=== PATIENT | female | born 1960 | race Caucasian/White ===

== ENCOUNTER 2019-10-10 09:41 | Outpatient (CLI) | payer SELFPAY ==
--- NOTE | 2019-10-10 09:57 | CT_ITS ---
WS: [id number] CT LUMBAR SPINE, noncontrast. HISTORY: LUMBAR BURST FRACTURE TECHNIQUE: Contiguous 2.5 mm axial imaging are performed. Sagittal and coronal reformats are submitte d and reviewed. All CT scans at [facility] use at least one of these dose optimization te chniques: automated exposure control; mA and/or kV adjustment per patient size (includes targeted exa ms where dose is matched to clinical indication); or iterative reconstruction. IV contrast: None DLP: 1651.35 mGycm COMPARISON: 08/14/2019 and 07/14/2019, 05/05/2019 L1 burst fracture is stable since 08/14/2019. Fracture extends through the superior vertebral body in volving both the anterior and posterior columns. Estimated at 30%. Retropulsion of the posterior supe rior endplate by 3.6 mm. No progression since the prior study. Degenerative air in the disc of T12-L1 . Mild buckling of the posterior L1 column. New sclerosis along the superior endplate of L4 without retropulsion. Concavity of the superior endpl ate of L4. L1-2: Normal. L2-3: Normal. L3-4: Mild annular disc bulging and ligamentum flavum hypertrophy. L4-5: Mild annular disc bulging with no stenosis. L5-S1: Mild annular disc bulging. Posterior disc bulging contacts the S1 nerve roots with no displace ment. Scattered calcifications within the aorta and common iliac arteries. CT/CT lumbar spine wo con* [id number] IMPRESSION: 1. Stable L1 burst fracture with no progression since 08/14/2019. Estimated at 30%. 2. New compression fracture superior endplate of L4. Compression fracture appro ximately 10 mm.
== END 2019-10-10 09:42 | disposition home or self-care (01) ==
LOC: RADWPI 09:42
PROVIDERS: Family Provider Nurse Practitioner Family; PCP Nurse Practitioner Family; Visit Provider Licensed Practical Nurse
DX: S32.011A Stable burst fracture of first lumbar vertebra, initial encounter for closed fracture (principal); S32.041A Stable burst fracture of fourth lumbar vertebra, initial encounter for closed fracture; X58.XXXA Exposure to other specified factors, initial encounter
CPT/HCPCS: 72131

== ENCOUNTER 2019-11-10 12:51 | Outpatient (CLI) | payer SELFPAY ==
--- NOTE | 2019-11-10 13:00 | CT_ITS ---
WS: [id number] CT LUMBAR SPINE TECHNIQUE: Noncontrast CT of the lumbar spine with coronal and sagittal reformatted images. CLINICAL INFORMATION: L4 fracture 09/13/2019 COMPARISON: October 10, 2019 DLP: 1754.[address] scans at [facility] use at least one of these dose optimization techniques: automat ed exposure control; mA and/or kV adjustment per patient size (includes targeted exams where dose is matched to clinical indication); or iterative reconstruction. FINDINGS: Mild compression fracture superior endplate L1 with loss of approximately 30% vertebral body height i s unchanged since the prior examination. Minimal retropulsion of the posterior superior cortex with s light effacement of the ventral thecal sac. No high-grade central canal stenosis. Mild compression superior endplate L4 is unchanged in appearance. L1-L2: Normal. L2-L3: Normal. L3-L4: Mild annular bulging with slight effacement of ventral thecal sac. Mild narrowing of the subar ticular recess bilaterally. Mild facet arthropathy. Spinal canal is patent. L4-L5: Mild annular bulging with mild facet arthropathy. Spinal canal and foramen are patent. Minimal narrowing of the left subarticular recess. L5-S1: Mild annular bulging with slight effacement of the ventral thecal sac. Spinal canal foramen ar e patent. Mild facet arthropathy. Visualized pelvic bony structures: Normal. Paravertebral soft tissues: Normal. CT/CT lumbar spine wo con* [id number] IMPRESSION: 1. L1 superior endplate compression fracture with loss of approximately 60% ve rtebral body height is unchanged. Mild retropulsion of the posterior superior c ortex with slight effacement of the ventral thecal sac. 2. Stable compression superior endplate L4. 3. No significant central canal stenosis. 4. No significant changes since October 10, 2019
--- NOTE | 2019-11-10 14:15 | XR_ITS ---
WS: [id number] SCREENING DEXA SCAN Nitronex CLINICAL INFORMATION: osteoporisis COMPARISON: None. FINDINGS: The L1-L4 bone mineral density measures 0.718 g/cm2. This corresponds to a T score score of -3.9 and Z score of -2.5. Left femoral neck bone mineral density measures 0.730 g/cm2. This corresponds to a T score of -2.2 an d Z score of -1.2. Right femoral neck bone mineral density measures 0.702 g/cm2. This corresponds to a T score -2.4of an d Z score of -1.4. Mean femoral neck bone mineral density measures 0.716 g/cm2. This corresponds to a T score of -2.3 an d Z score of -1.3. XR/XR DEXA axial skeleton* [id number] IMPRESSION: Osteoporosis Patient's FRAX calculated 10 year probability for major osteoporotic fracture i s 21.0 % and osteoporotic hip fracture is 5.5%.
== END 2019-11-10 12:52 | disposition home or self-care (01) ==
LOC: RADWPI 12:56
PROVIDERS: Family Provider Nurse Practitioner Family; PCP Nurse Practitioner Family; Visit Provider Licensed Practical Nurse
DX: M81.0 Age-related osteoporosis without current pathological fracture (principal); S32.000A Wedge compression fracture of unspecified lumbar vertebra, initial encounter for closed fracture; X58.XXXA Exposure to other specified factors, initial encounter
CPT/HCPCS: 72131; 77080

== ENCOUNTER → 2019-11-14 09:13 | Outpatient (BNVA) | payer SELFPAY | PROVIDERS: Family Provider Nurse Practitioner Family; PCP Nurse Practitioner Family; Visit Provider Surgery | DX: L98.9 Disorder of the skin and subcutaneous tissue, unspecified (principal) | CPT/HCPCS: 88305 ==

== ENCOUNTER → 2019-11-25 11:49 | Outpatient (BNVA) | payer SELFPAY | PROVIDERS: Family Provider Nurse Practitioner Family; PCP Nurse Practitioner Family; Visit Provider Nurse Practitioner Family | DX: M81.0 Age-related osteoporosis without current pathological fracture (principal); Z12.11 Encounter for screening for malignant neoplasm of colon; Z12.31 Encounter for screening mammogram for malignant neoplasm of breast; R10.84 Generalized abdominal pain; E55.9 Vitamin D deficiency, unspecified | CPT/HCPCS: 80053; 82306; 83735; 84100; 85025 ==

== ENCOUNTER 2019-12-15 08:18 | Outpatient (CLI) | payer SELFPAY ==
--- NOTE | 2019-12-15 09:00 | CT_ITS ---
WS: [id number] CT LUMBAR SPINE TECHNIQUE: Noncontrast CT of the lumbar spine with coronal and sagittal reformatted images. CLINICAL INFORMATION: Lumbar fracture COMPARISON: CT November 10, 2019 DLP: 1611.[address] scans at [facility] use at least one of these dose optimization techniques: automat ed exposure control; mA and/or kV adjustment per patient size (includes targeted exams where dose is matched to clinical indication); or iterative reconstruction. FINDINGS: Again seen is the mild compression fracture superior endplate L1 with loss of approximately 30% vertebral body heights. Minimal retropulsion posterior superior cortex with slight effacement of ventral thecal sac. No high-grade central canal stenosis. Mild compression superior endplate L4 is u nchanged. L1-L2: Normal. L2-L3: Normal. L3-L4: Mild annular bulging with slight effacement of ventral thecal sac. Mild narrowing of the subar ticular recess bilaterally. Mild facet arthropathy. Spinal canal is patent. L4-L5: Mild annular bulging with mild facet arthropathy. Spinal canal and foramen are patent. Minimal narrowing of the left subarticular recess L5-S1: Mild annular bulging with slight effacement of the ventral thecal sac. Spinal canal foramen ar e patent. Mild facet arthropathy. CT/CT lumbar spine wo con* [id number] IMPRESSION: 1. L1 superior endplate compression fracture with loss of approximately 30% belen tebral body height is unchanged. Mild retropulsion of the posterior superior co rtex with slight effacement of the ventral thecal sac. 2. Stable compression superior endplate L4. 3. No significant central canal stenosis.
== END 2019-12-15 08:19 | disposition home or self-care (01) ==
LOC: CT 08:19
PROVIDERS: Family Provider Nurse Practitioner Family; PCP Nurse Practitioner Family; Visit Provider Licensed Practical Nurse
DX: S32.000A Wedge compression fracture of unspecified lumbar vertebra, initial encounter for closed fracture (principal); X58.XXXA Exposure to other specified factors, initial encounter
CPT/HCPCS: 72131

== ENCOUNTER 2020-10-01 12:45 | Outpatient (CLI) | payer SELFPAY ==
--- NOTE | 2020-10-01 12:00 | US_ITS ---
WS: [id number] Complete ABDOMINAL ULTRASOUND HISTORY: R10.9 - Unspecified abdominal pain COMPARISON: 01/19/2017 Liver: 15.4 cm in length. Liver is normal size and echogenicity with no mass or intrahepatic dilatati on. Gallbladder: Prior cholecystectomy. Pancreas: Normal size and echogenicity. CBD: 0.6 cm. Right kidney: 9.0 cm x 4.1 cm x 4.1 cm. Simple cortical cyst with a maximum diameter 1.1 cm superior pole RIGHT kidney. Left kidney: 10.8 cm x 5.7 cm x 5.2 cm. Cortical cyst lower pole LEFT kidney with a maximum diameter 1.0 cm. Spleen: Normal size and echogenicity. Abdominal aorta and IVC are within normal limits. No ascites. US/US abdomen complete* [id number] IMPRESSION: 1. Prior cholecystectomy. 2. Very small bilateral simple renal cysts. 3. No bile duct dilatation.
== END 2020-10-01 12:46 | disposition home or self-care (01) ==
LOC: RAD 12:46
PROVIDERS: PCP Nurse Practitioner Family; Visit Provider Nurse Practitioner Family
DX: R10.9 Unspecified abdominal pain (principal); Z90.49 Acquired absence of other specified parts of digestive tract; N28.1 Cyst of kidney, acquired
CPT/HCPCS: 74018; 76700; 80053; 81003; 82150; 83690; 85025

== ENCOUNTER → 2022-08-02 10:06 | Outpatient (BNVA) | payer SELFPAY | PROVIDERS: PCP Nurse Practitioner; Visit Provider Nurse Practitioner | DX: L65.9 Nonscarring hair loss, unspecified (principal) | CPT/HCPCS: 80053; 82306; 84443 ==

== ENCOUNTER → 2023-05-10 14:58 | Outpatient (BNVA) | payer MEDICAID, SELFPAY | PROVIDERS: PCP Nurse Practitioner; Visit Provider Nurse Practitioner | DX: R63.4 Abnormal weight loss (principal); R19.7 Diarrhea, unspecified; R10.9 Unspecified abdominal pain | CPT/HCPCS: 80053; 84443; 85025 ==

== ENCOUNTER 2023-05-11 17:14 | Emergency (ER) | payer MEDICAID, SELFPAY ==
[2023-05-11] VITALS (9 sets, daily range): BP systolic 112–155; BP diastolic 60–84; PULSE 70–83; RESP 16–17; TEMP 36.6–36.9; O2SAT 97–100; BMI 20.7
--- NOTE | 2023-05-11 18:38 | W.ED.RECABL ---
HPI - Recheck/Abnormal Lab/Rx General: Chief Complaint: Abdominal Pain Stated Complaint: abnormal labs Time Seen by Provider: 05/11/23 17:54 History of Present Illness: Seen in the [place] clinic for chronic nausea vomiting diarrhea abdominal pain intermittently for the last 6 months. She had labs drawn yesterday. She was called today that said her hemoglobin was dangerously low and it was in the sixes. That they told her to get to the ER for further work-up and probable transfusion. Patient did have an abdominal pain spasm type off-and-on with no known triggers or anything and will relieve it for the last 6 months. Patient is also had a lot of nausea and vomiting during these episodes. Patient has a history of being anemic a long long time ago but not anything here recent. Patient does not have any active signs of blood loss. Review of Systems General: Reports: 10 or more systems reviewed and unremarkable except in HPI and below PFSH ED PFSH: Medical History Diverticulitis Fluid level behind tympanic membrane of both ears GERD (gastroesophageal reflux disease) Lumbar burst fracture Otitis externa Post-menopausal osteoporosis Patient has had two fractures of the lumbar spine in the past year. Vitamin D deficiency Surgical History H/O section H/O local excision of skin lesion Left thigh: Pathology showed squamous of carcinoma History of cholecystectomy History of umbilical hernia repair Family History Mother Cancer Social History Smoking and tobacco status: never smoked Alcohol intake: never Substance/Drug Use: never Household members: spouse Marital status: Current occupational status: unemployed Physical Exam HENMT: COMMON NORMALS: normocephalic, atraumatic, hearing grossly normal bilaterally, Normal external nose present and moist oral mucous membranes HEAD & SCALP: normocephalic and atraumatic NOSE: Normal external nose present Eye: COMMON NORMALS: EOMs intact bilaterally, conjunctivae normal and no scleral icterus CONJUNCTIVA: Yes conjunctivae normal Neck/C-Spine: COMMON NORMALS: full ROM, no lymphadenopathy, supple, no meningeal signs, no JVD and Thyroid normal THYROID: Thyroid normal Chest: COMMONS NORMALS: normal inspection of the chest and normal palpation of entire chest wall Resp: COMMON NORMALS: normal respiratory effort, No retractions, No use of accessory muscles and clear to auscultation bilaterally AUSCULTATION: clear to auscultation bilaterally Cardio: COMMON NORMALS: no JVD, regular rate, regular rhythm, S1 normal heart sound present, S2 normal heart sound present, No gallops present (Cardio), No clicks present (Cardio), No murmurs present (Cardio) and No rub (Cardio) RATE: regular rate RHYTHM: regular rhythm HEART SOUNDS: S1 normal heart sound present and S2 normal heart sound present GI: COMMON NORMALS: Normal to inspection, nondistended, normoactive bowel sounds present, Soft to palpation, No hepatosplenomegaly present and no masses; negative for non-tender (Diffusely mildly tender) PALPATION: Yes Soft to palpation and Yes No hepatosplenomegaly present : COMMON NORMALS: Yes no CVA tenderness BLADDER/KIDNEY EXAM: Yes no CVA tenderness Back/Pelvis: COMMON NORMALS: no CVA tenderness Neuro: MENINGEAL SIGNS: Yes no meningeal signs Course Vital Signs: Vital signs: Vital Signs Temperature 97.9 F 05/11/23 17:31 Pulse Rate 71 05/11/23 17:48 Respiratory Rate 17 05/11/23 17:48 Blood Pressure 112/81 05/11/23 17:48 Pulse Oximetry 98 05/11/23 17:48 Oxygen Delivery Me thod Room Air 05/11/23 17:48 MDM - Recheck/Abnormal Lab/Rx Medical Decision Making Patient presented to the ER from a call from the clinic saying she was very low on blood. Needed to come in for evaluation and transfusion. Physical exam was performed lab work was obtained which revealed hemoglobin of 6.8 hematocrit 25.8. Platelet count of 869,000 the rest of her lab work was benign. Patient was infused 1 unit of packed red cells. Anticipate patient to be discharged home to follow-up with family practice physician for further evaluation and testing of her anemia. Differential Diagnosis Unlikely encounter for medication refill, encounter for wound recheck, encounter for recheck of burn, encounter for removal of sutures or warfarin-induced coagulopathy Medical Records I reviewed the patient's medical records. Lab Data I reviewed the patient's lab results. 05/11/23 18:25 05/11/23 18:25 Laboratory Results WBC 11.5 10^3/uL (4.0-10.0) H 05/11/23 18:25 RBC 4.31 10^6/uL (4.1-5.3) 05/11/23 18:25 Hgb 6.8 g/dL (11.5-15.3) L 05/11/23 18:25 Hct 25.8 % (37.0-47.0) L 05/11/23 18:25 MCV 59.9 fl (81-99) L 05/11/23 18:25 MCH 15.8 pg (28.0-34.0) L 05/11/23 18:25 MCHC 26.4 g/dL (30.0-36.0) L 05/11/23 18:25 RDW 20.6 % (12.1-15.1) H 05/11/23 18:25 Plt Count 869 10^3/cmm (130-400) H 05/11/23 18:25 MPV 8.9 fL (7.4-10.4) 05/11/23 18:25 Neut % (Auto) 67.3 % 05/11/23 18:25 Lymph % (Auto) 22.1 % 05/11/23 18:25 [place] % (Auto) 6.6 % 05/11/23 18:25 Eos % (Auto) 2.9 % 05/11/23 18:25 Baso % (Auto) 0.9 % 05/11/23 18:25 Neut # (Auto) 7.72 10^3/uL (1.8-7.7) H 05/11/23 18:25 Lymph # (Auto) 2.5 10^3/uL (0.8-4.8) 05/11/23 18:25 [place] # (Auto) 0.8 10^3/uL (0.2-0.9) 05/11/23 18:25 Eos # (Auto) 0.3 10^3/uL (0.0-0.8) 05/11/23 18:25 Baso # (Auto) 0.1 10^3/uL (0.0-0.1) 05/11/23 18:25 Nucleated RBC % (auto) 0 % 05/11/23 18:25 Nucleated RBCs # 0.0 /100WBC 05/11/23 18:25 PT 14.30 SECONDS (12.1-14.9) 05/11/23 18:25 INR 1.08 (0.8-1.2) 05/11/23 18:25 Sodium 137 mmol/L (136-145) 05/11/23 18:25 Potassium 3.7 mmol/L (3.5-5.1) 05/11/23 18:25 Chloride 98 mmol/L (98-107) 05/11/23 18:25 Carbon Dioxide 28 mmol/L (22-29) 05/11/23 18:25 Anion Gap 14.7 (5-19) 05/11/23 18:25 BUN 15 mg/dL (8-23) 05/11/23 18:25 Creatinine 0.8 mg/dL (0.5-0.9) 05/11/23 18:25 GFR Calculation 72.4 mL/min (90-130) L 05/11/23 18:25 Glucose 80 mg/dL (65-115) 05/11/23 18:25 Calculated Osmolality 284 mOsm/kg (285-295) L 05/11/23 18:25 Calcium 9.4 mg/dL (8.5-10.5) 05/11/23 18:25 Magnesium 2.2 mg/dL (1.7-2.3) 05/11/23 18:25 Total Bilirubin 0.2 mg/dL (0.15-1.2) 05/11/23 18:25 AST 12 U/L (0-32) 05/11/23 18:25 ALT 6 U/L (0-33) 05/11/23 18:25 Alkaline Phosphatase 114 U/L (35-105) H 05/11/23 18:25 Total Protein 7.4 g/dL (6.6-8.7) 05/11/23 18:25 Albumin 4.1 g/dL (3.5-5.2) 05/11/23 18:25 Globulin 3.3 g/dL (1.3-4.6) 05/11/23 18:25 Lipase 37 U/L (13-60) 05/11/23 18:25 Blood Type O Positive 05/11/23 18:25 Rho(D) Type Positive 05/11/23 18:25 Antibody Screen Negative 05/11/23 18:25 Discharge Plan Discharge Patient Disposition: Home Clinical Impression: Anemia requiring transfusions, Thrombocytosis, Abdominal pain, chronic, generalized Condition: Stable Prescriptions: No Action omeprazole 40 mg capsule,delayed release(DR/EC) 40 mg PO BID Qty: 30 0RF ondansetron 4 mg tablet,disintegrating 4 mg PO Q8H PRN (Reason: nausea and vomiting) Qty: 30 0RF Discharge Orders: Discharge ED (Routine); Ordered 05/11/23 Ordered By: Dewey Fountain Referrals: Leah Campos FNP [Primary Care Provider] - 1 week Patient Instructions: Abdominal Pain (ED), Anemia (ED), Blood Transfusion (DC) Activity Restrictions/Additional Instructions: Please follow-up with your family practice physician within the next 1 week or sooner. You may benefit from further evaluation testing of your anemia and elevated platelet count. Coding Level of Care Code ED Orthopedic Nurse for Bridget Estrada
[2023-05-11 18:40] LABS: Basophils # 0.1 10^3/uL (0.0-0.1); Basophils % 0.9 %; Eosinophils # 0.3 10^3/uL (0.0-0.8); Eosinophils % 2.9 %; Hematocrit 25.8 % (37.0-47.0); Hemoglobin 6.8 g/dL (11.5-15.3); Lymphocytes # 2.5 10^3/uL (0.8-4.8); Lymphocytes % 22.1 %; Mean Corpuscular HGB Conc 26.4 g/dL (30.0-36.0); Mean Corpuscular Hemoglobin 15.8 pg (28.0-34.0); Mean Corpuscular Volume 59.9 fl (81-99); Mean Platelet Volume 8.9 fL (7.4-10.4); Monocytes # 0.8 10^3/uL (0.2-0.9); Monocytes % 6.6 %; Neutrophils # 7.72 10^3/uL (1.8-7.7); Neutrophils % 67.3 %; Nucleated Red Blood Cells % 0 %; Platelet Count 869 10^3/cmm (130-400); Red Blood Count 4.31 10^6/uL (4.1-5.3); Red Cell Distribution Width 20.6 % (12.1-15.1); White Blood Count 11.5 10^3/uL (4.0-10.0)
[2023-05-11 18:54] LABS: INR 1.08 (0.8-1.2)
[2023-05-11 19:00] LABS: Alanine Aminotransferase 6 U/L (0-33); Albumin Level 4.1 g/dL (3.5-5.2); Alkaline Phosphatase 114 U/L (35-105); Anion Gap 14.7 (5-19); Aspartate Amino Transferase 12 U/L (0-32); Blood Urea Nitrogen 15 mg/dL (8-23); Calcium 9.4 mg/dL (8.5-10.5); Carbon Dioxide 28 mmol/L (22-29); Chloride 98 mmol/L (98-107); Globulin 3.3 g/dL (1.3-4.6); Glomerular Filtration Rate 72.4 mL/min (90-130); Glucose 80 mg/dL (65-115); Lipase 37 U/L (13-60); Magnesium 2.2 mg/dL (1.7-2.3); Osmolality Calculated 284 mOsm/kg (285-295); Potassium 3.7 mmol/L (3.5-5.1); Sodium 137 mmol/L (136-145); Total Bilirubin 0.2 mg/dL (0.15-1.2); Total Protein 7.4 g/dL (6.6-8.7)
--- NOTE | 2023-05-11 21:27 | PC.NURSE ---
ASSUMED CARE OF PATIENT AT 2124 FROM [facility] DUNC[facility].
== END 2023-05-11 23:08 | disposition home or self-care (01) ==
PROVIDERS: Emergency Provider Emergency Medicine; PCP Nurse Practitioner
DX: G89.29 Other chronic pain (principal); R10.84 Generalized abdominal pain; D75.839 Thrombocytosis, unspecified; D64.9 Anemia, unspecified
CPT/HCPCS: 36430; 80053; 83690; 83735; 85025; 85610; 86850; 86900; 86920; 99284; P9016

== ENCOUNTER → 2023-05-14 15:33 | Outpatient (BNVA) | payer MEDICAID, SELFPAY | PROVIDERS: PCP Nurse Practitioner; Visit Provider Nurse Practitioner | DX: R19.7 Diarrhea, unspecified (principal) | CPT/HCPCS: 87177; 87209; 87506 ==

== ENCOUNTER → 2023-05-24 10:35 | Outpatient (BNVA) | payer MEDICAID, SELFPAY | PROVIDERS: PCP Nurse Practitioner; Visit Provider Nurse Practitioner | DX: R10.9 Unspecified abdominal pain (principal); D58.2 Other hemoglobinopathies; R11.2 Nausea with vomiting, unspecified; R63.4 Abnormal weight loss | CPT/HCPCS: 85025 ==

== ENCOUNTER 2023-05-25 10:52 | Inpatient (IN) | payer MEDICAID, SELFPAY ==
[2023-05-25] VITALS (8 sets, daily range): BP systolic 125–156; BP diastolic 68–95; PULSE 75–91; RESP 16–17; TEMP 36.4–36.8; O2SAT 94–97; BMI 19.4
--- NOTE | 2023-05-25 11:48 | CT_ITS ---
WS: [id number] CT ABDOMEN AND PELVIS WITH CONTRAST HISTORY: abd pain TECHNIQUE: Imaging performed of the abdomen and pelvis with IV contrast. Single phase imaging of the abdomen. Coronal and sagittal reformats are submitted. All CT scans at [facility] use at [address] one of these dose optimization techniques: automated exposure control; mA and/or kV adjustment per patient size (includes targeted exams where dose is matched to clinical indication); or iterative re construction. IV CONTRAST: Omnipaque 350; 100 mL IV. Oral contrast: No DLP: 338.79 mGy.cm COMPARISON: None available. Lower thorax: Chronic emphysematous changes at the lung bases. Bilateral pulmonary nodules are identi fied. Numerous pulmonary nodules consistent with metastatic disease most likely. The largest nodule v isualized is 1.8 cm. On the tester printed circuit boards localizer there is a 2.3 mm pulmonary nodule in the LEFT lower lung field. This may be within the lingula. Nevertheless there are numerous bilateral nodules but greates t on the LEFT. Heart size is normal. No pericardial effusion. Small hiatal hernia. Liver/biliary system: Abnormal liver. Large low-attenuation enhancing mass in the superior RIGHT lobe of the liver abutting the diaphragm. Mass is displacing the adjacent RIGHT hepatic vein. Mass measur es 7.6 x 8.3 x 6.6 cm. Portal vein is patent. There are few additional scattered hypodensities which are probably cysts. Focal hepatic sparing adjacent to the falciform ligament. Gallbladder: Status post cholecystectomy. Pancreas: Normal size pancreas and pancreatic duct. No adjacent inflammation. Spleen: Normal size spleen. No mass or infarct. Adrenal glands: Very slight nodularity RIGHT adrenal gland. Nodule measures 1.2 cm. Negative LEFT adr enal gland. Right kidney: Numerous too small to characterize hypodensities. No solid mass or obstruction. Left kidney: Too small to characterize hypodensities. No solid mass or obstruction. Aorta: Atherosclerosis aorta. Lymphadenopathy: There are several small mesenteric lymph nodes adjacent to a stricture in the hepati c flexure of the colon. There is a mesenteric implant measuring 2.4 x 3.4 cm just anterior to the SMV and adjacent to the pancreatic head which may be extension of a colon neoplasm or mesenteric implant . There are several additional smaller lymph nodes in the mesentery. Free fluid: Small amount of free fluid in the pelvis. GI tract: Stomach is normally distended. There is significant fluid dilatation of small bowel loops w ith small bowel and measure up to 3.4 cm. A sending colon is markedly dilated. The appendix is fluid- filled. There is a high-grade stricture, apple core lesion near the hepatic flexure with adjacent mes enteric implant and nodes. No free air. Distal colonic diverticular disease. Abdominal wall: Unremarkable abdominal wall. No hernia. Pelvis: Small amount of free fluid in the pelvis. Bones: Mild anterior wedging of L1 and L4. These changes have been described on a prior lumbar spine CT. No destructive bone lesions identified. IMPRESSION: 1. 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 2. Multiple metastatic pulmonary nodules at the lung bases and a large mass in the liver is probably hepatic metastasis. As this is only a single lesion cannot completely exclude this is not a primary site but thought most likely to be a metastatic liver lesion. 3. Mesenteric implant and small RIGHT upper quadrant lymph nodes. The mesenteric implant is insepara ble from the pancreatic head and just anterior to the SMV measuring 2.4 x 3.4 cm. This mesenteric imp lant is very closely associated with the neoplastic stricture in the hepatic flexure. 4. Small amount of free fluid. 5. Indeterminate RIGHT adrenal nodule at 1.2 cm. May be an early metastatic lesion. 6. Prior cholecystectomy. Notified Michael Vázquez DO at 05/25/2023 12:40 PM.
--- NOTE | 2023-05-25 11:49 | XR_ITS ---
WS: [id number] Exam: XR chest 1V portable [id number] Date/Time of Exam: 05/25/2023 11:49 AM Reason For Exam: dyspnea/cough No previous exams. There are numerous scattered soft tissue nodules in both lungs. The largest nodule s and masses are seen in the LEFT lower lung zone. This is suspicious for pulmonary metastatic diseas e. Questionable RIGHT hilar mass. Heart size is normal. The mediastinum is normal in contour. The cynthia gs are hyperinflated. No pneumothorax. No pleural effusions. Bony structures are intact. IMPRESSION: 1. Numerous scattered soft tissue nodules in both lungs. The largest lesion is in the LEFT lower lobe and measures 3.6 cm in greatest diameter. This may represent metastatic pulmonary disease. 2. The lungs are hyperinflated and otherwise clear. 3. There may be a RIGHT hilar mass. Recommendations: Contrast CT of the chest recommended for further work-up.
--- NOTE | 2023-05-25 11:50 | W.ED.GENADLT ---
HPI - General Adult General: Chief complaint: General Medical Stated complaint: N/V stomach pain, weakness Time Seen by Provider: 05/25/23 11:46 Source: patient Mode of arrival: ambulatory History of Present Illness: 59-year-old female presents emergency room with complaint of generally not feeling well. She has been feeling well for the last couple of months. She has been seen a couple times has been anemic with microcytic anemia she is scheduled for an EGD and colonoscopy now she develops severe abdominal cramping with nausea and vomiting bilious like vomiting no hematemesis or coffee-ground emesis no medic easier melena. Patient reports significant unintended weight loss over the last several months as well. Onset (ago): hour(s) Location: abdomen Severity: severe Quality: aching Pain Consistency: intermittent Relieving factors: none Exacerbating factors: none Associated symptoms: Reports decreased appetite, malaise, nausea, vomiting and weakness; Deny chest pain, confusion, cough, diaphoresis, dyspnea, fevers/chills, headache(s), rash, palpitations, seizures, short of breath, syncope or other Review of Systems Const: Reports: malaise; Denies: fever(s), chills or diaphoresis Card: Denies: chest pain, palpitations or syncope Resp: Denies: dyspnea GI: Reports: abdominal pain, nausea and vomiting; Denies: coffee ground emesis : Denies: flank pain, difficulty voiding, dysuria, urinary frequency or urinary urgency Musc: Denies: neck pain or back pain Skin/Breast: Denies: rash Neuro: Denies: headache(s) or confusion PFS ED PFSH: Medical History Diverticulitis Fluid level behind tympanic membrane of both ears GERD (gastroesophageal reflux disease) Lumbar burst fracture Otitis externa Post-menopausal osteoporosis Patient has had two fractures of the lumbar spine in the past year. Vitamin D deficiency Surgical History H/O section H/O local excision of skin lesion Left thigh: Pathology showed squamous of carcinoma History of cholecystectomy History of umbilical hernia repair Family History Mother Cancer Social History (Reviewed 05/25/23 @ 14:51 by SRI Del Valle Smoking and tobacco status: never smoked Alcohol intake: never Substance/Drug Use: never Household members: spouse Marital status: Current occupational status: unemployed Physical Exam Const: GENERAL APPEARANCE: cooperative ORIENTATION/CONSCIOUSNESS: Yes awake, Yes oriented to person, Yes oriented to place and Yes oriented to time HENMT: COMMON NORMALS: normocephalic, atraumatic and hearing grossly normal bilaterally HEAD & SCALP: normocephalic and atraumatic Resp: COMMON NORMALS: normal respiratory effort, No retractions, No use of accessory muscles and clear to auscultation bilaterally AUSCULTATION: clear to auscultation bilaterally Cardio: COMMON NORMALS: regular rate, regular rhythm and No murmurs present (Cardio) RATE: regular rate RHYTHM: regular rhythm GI: AUSCULTATION: Yes Hypoactive bowel sounds present PALPATION: Yes Tenderness to palpation present (GI) Extremity: COMMON NORMALS: normal to inspection, capillary refill normal, no clubbing, cyanosis or edema, no calf tenderness and no pedal edema Neuro: SENSORIUM/ORIENTATION: Yes oriented to person, Yes oriented to place and Yes oriented to time Skin: COMMON NORMALS: no rashes or lesions noted GENERAL SKIN EXAM: no rashes or lesions noted Course Vital Signs: Vital signs: Vital Signs Temperature 97.5 F L 05/25/23 11:24 Pulse Rate 91 05/25/23 11:24 Respiratory Rate 16 05/25/23 11:24 Blood Pressure 144/71 05/25/23 14:00 Pulse Oximetry 96 05/25/23 14:00 Oxygen Delivery Me thod Room Air 05/25/23 11:24 MDM - General Adult Medical Decision Making Imaging shows what appears to be a near colonic obstruction with a stricture at the hepatic flexure. There appears to be metastasis to the liver as well as some seeding to the omentum and mets to the lungs. Discussed with Dr. Tony will place NG admit to hospitalist orders written. Medical Records I reviewed the patient's medical records. Lab Data I reviewed the patient's lab results. 05/25/23 11:55 05/25/23 11:55 Laboratory Results WBC 15.62 10^3/uL (3.29-11.43) H 05/25/23 11:55 RBC 5.04 10^6/uL (3.85-5.65) 05/25/23 11:55 Hgb 8.70 g/dL (11.27-16.99) L 05/25/23 11:55 Hct 30.2 % (36-47) L 05/25/23 11:55 MCV 59.9 fl (85-98) L 05/25/23 11:55 MCH 17.3 pg (27-33) L 05/25/23 11:55 MCHC 28.8 g/dL (30-55) L 05/25/23 11:55 RDW 25.3 % (12.1-15.1) H 05/25/23 11:55 Plt Count 1327 10^3/cmm (157-399) H 05/25/23 11:55 MPV 8.5 fL (7.4-10.4) 05/25/23 11:55 Neut % (Auto) 87.6 % 05/25/23 11:55 Lymph % (Auto) 6.4 % 05/25/23 11:55 Gilchrist % (Auto) 5.2 % 05/25/23 11:55 Eos % (Auto) 0.0 % 05/25/23 11:55 Baso % (Auto) 0.3 % 05/25/23 11:55 Neut # (Auto) 13.68 10^3/uL (1.8-7.7) H 05/25/23 11:55 Lymph # (Auto) 1.0 10^3/uL (0.8-4.8) 05/25/23 11:55 Gilchrist # (Auto) 0.8 10^3/uL (0.2-0.9) 05/25/23 11:55 Eos # (Auto) 0.0 10^3/uL (0.0-0.8) 05/25/23 11:55 Baso # (Auto) 0.1 10^3/uL (0.0-0.1) 05/25/23 11:55 Nucleated RBC % (auto) 0 % 05/25/23 11:55 Nucleated RBCs # 0.0 /100WBC 05/25/23 11:55 Sodium 135 mmol/L (136-145) L 05/25/23 11:55 Potassium 4.3 mmol/L (3.5-5.1) 05/25/23 11:55 Chloride 97 mmol/L (98-107) L 05/25/23 11:55 Carbon Dioxide 25 mmol/L (22-29) 05/25/23 11:55 Anion Gap 17.3 (5-19) 05/25/23 11:55 BUN 20 mg/dL (8-23) 05/25/23 11:55 Creatinine 0.9 mg/dL (0.5-0.9) 05/25/23 11:55 GFR Calculation 63.2 mL/min (90-130) L 05/25/23 11:55 Glucose 121 mg/dL (65-115) H 05/25/23 11:55 Calculated Osmolality 284 mOsm/kg (285-295) L 05/25/23 11:55 Calcium 9.7 mg/dL (8.5-10.5) 05/25/23 11:55 Total Bilirubin 0.3 mg/dL (0.15-1.2) 05/25/23 11:55 AST 14 U/L (0-32) 05/25/23 11:55 ALT 6 U/L (0-33) 05/25/23 11:55 Alkaline Phosphatase 114 U/L (35-105) H 05/25/23 11:55 Total Protein 7.9 g/dL (6.6-8.7) 05/25/23 11:55 Albumin 4.2 g/dL (3.5-5.2) 05/25/23 11:55 Globulin 3.7 g/dL (1.3-4.6) 05/25/23 11:55 Lipase 23 U/L (13-60) 05/25/23 11:55 Blood Type O Positive 05/25/23 12:46 Rho(D) Type Positive 05/25/23 12:46 Antibody Screen Negative 05/25/23 12:46 Discharge Plan Discharge Patient Disposition: Admitted As Inpatient Admit Provider: Pipe Vivas Clinical Impression: Stricture of ascending colon, Colonic obstruction, Cancer, metastatic to liver, Cancer, metastatic to lung Condition: Stable Coding Level of Care Code ED Environmental Health And Safety Leader for Bridget Estrada
[2023-05-25 12:05] LABS: Basophils # 0.1 10^3/uL (0.0-0.1); Basophils % 0.3 %; Hematocrit 30.2 % (36-47); Lymphocytes % 6.4 %; Mean Corpuscular HGB Conc 28.8 g/dL (30-55); Mean Corpuscular Hemoglobin 17.3 pg (27-33); Mean Corpuscular Volume 59.9 fl (85-98); Mean Platelet Volume 8.5 fL (7.4-10.4); Monocytes # 0.8 10^3/uL (0.2-0.9); Monocytes % 5.2 %; Neutrophils # 13.68 10^3/uL (1.8-7.7); Neutrophils % 87.6 %; Nucleated Red Blood Cells % 0 %; Platelet Count 1327 10^3/cmm (157-399); Red Blood Count 5.04 10^6/uL (3.85-5.65); Red Cell Distribution Width 25.3 % (12.1-15.1); White Blood Count 15.62 10^3/uL (3.29-11.43)
--- NOTE | 2023-05-25 12:05 | PC.PHAR ---
pt states she takes care of her own medications-pt states she never took the amoxil 875mg bid filled on 05/17/23 7d/s pt states the dr told her not to take-pt states she is only taking the medications entered
[2023-05-25] MEDS: iohexol 350 mg/mL 500 mL Btl (per mL) IV ×2 (12:11→16:49)
[2023-05-25 12:28] LABS: Alanine Aminotransferase 6 U/L (0-33); Albumin Level 4.2 g/dL (3.5-5.2); Alkaline Phosphatase 114 U/L (35-105); Anion Gap 17.3 (5-19); Aspartate Amino Transferase 14 U/L (0-32); Blood Urea Nitrogen 20 mg/dL (8-23); Calcium 9.7 mg/dL (8.5-10.5); Carbon Dioxide 25 mmol/L (22-29); Chloride 97 mmol/L (98-107); Globulin 3.7 g/dL (1.3-4.6); Glomerular Filtration Rate 63.2 mL/min (90-130); Glucose 121 mg/dL (65-115); Lipase 23 U/L (13-60); Osmolality Calculated 284 mOsm/kg (285-295); Potassium 4.3 mmol/L (3.5-5.1); Sodium 135 mmol/L (136-145); Total Bilirubin 0.3 mg/dL (0.15-1.2); Total Protein 7.9 g/dL (6.6-8.7)
[2023-05-25] MEDS: ondansetron 2 mg/ML SDV 2 mL 4 MG IVP (13:30)
[2023-05-25] MEDS: sodium chloride 0.9% 1,000 ML 999 ML IV (13:31)
[2023-05-25] MEDS: morphine 4 mg/mL SDV 1 mL 2 MG IVP (13:54)
[2023-05-25 15:42] LABS: Add Urine Microscopic? YES; Bilirubin Urine Neg (Negative); Blood Urine 2+ (Negative); Glucose Urine UA Norm (Normal); Ketones Urine Negative (Negative); Leukocyte Esterase Urine Trace (Negative); Nitrate Urine Positive (Negative); Protein Urine 1+ (Negative); Urine Appearance Clear (CLEAR); Urine Color Yellow (Yellow); Urobilinogen Urine 1 mg/dL (Negative); pH Urine 5 (5-7)
[2023-05-25 15:43] LABS: RBC Urine 0-4 /hpf (0-2); Squamous Epithelial Cell Urine 40-55 /hpf (0-5); WBC Urine 0-4 /hpf (0-5)
[2023-05-25 15:44] LABS: Add Urine Culture? No
[2023-05-25] MEDS: D5-NS 0.45% + KCL 20 mEq 20 MEQ/1,000 ML BAG 125 MEQ IV (15:50)
--- NOTE | 2023-05-25 16:09 | P.HP_ITS ---
Providers/Chief Complaint Admitting Physician: Pipe Vivas Primary Care Provider: Leah Campos APN Chief Complaint: N/V stomach pain, weakness History of Present Illness Pleasant 62-year-old lady being investigated for anemia, had referral for colonoscopy, has not yet undergone study which has been planned, has been also generally weak, fatigable and with dyspnea on exertion, recently even with short distance, but denies cough, chest pain or pressure, no hemoptysis, he did receive a transfusion sometime ago, after that had some swelling in her lower extremities but that has resolved. She has been feeling unwell for several months. Has had unintended weight loss. She has felt weaker, had an episode of vomiting, has been unable to tolerate oral intake and came in for evaluation to ER. Review of Systems Const: Reports: change in appetite and fatigue; Denies: fever(s), chills, body aches or malaise Eyes: Denies: change in vision ENMT: Denies: throat pain Card: Denies: chest pain, edema, pre-syncope or dyspnea on exertion Resp: Denies: dyspnea, productive cough, change in phlegm color or hemoptysis GI: Reports: nausea, vomiting and belching; Denies: hematemesis, coffee ground emesis, diarrhea, hematochezia or melena : Denies: flank pain, urinary frequency or hematuria Musc: Denies: back pain, joint swelling or joint redness Skin/Breast: Denies: rash or new lesions Neuro: Denies: headache(s), numbness in extremities, weakness in extremities, dizziness, confusion or seizure-like activity Medications/Allergies Home Medications Medication Instructions Recorded Confirmed Last Taken Type ondansetron 4 mg disintegrating 4 mg PO Q8H PRN nausea and 05/10/23 05/25/23 Unknown Rx tablet vomiting #30 tabs pantoprazole 40 mg tablet,delayed 40 mg PO BID 6 weeks #84 tabs 05/16/23 05/25/23 Unknown Rx release (Protonix) acetaminophen 500 mg tablet 500 - 1,000 mg PO Q6H PRN Pain 05/25/23 05/25/23 Unknown History Allergies Allergy/AdvReac Type Severity Reaction Status Date / Time ciprofloxacin Allergy Mild ADR-Anxiety Verified 05/25/23 12:03 PFSH Acute PFSH: Medical History Diverticulitis Fluid level behind tympanic membrane of both ears GERD (gastroesophageal reflux disease) Lumbar burst fracture Otitis externa Post-menopausal osteoporosis Patient has had two fractures of the lumbar spine in the past year. Vitamin D deficiency Surgical History H/O section H/O local excision of skin lesion Left thigh: Pathology showed squamous of carcinoma History of cholecystectomy History of umbilical hernia repair Family History Mother Cancer Social History (Updated 05/25/23 @ 16:20 by Pipe Vivas MD) Smoking and tobacco status: former smoker Alcohol intake: never Substance/Drug Use: never Household members: spouse Marital status: Current occupational status: unemployed Vitals/I&O/Wt Last Vital Signs Temp 97.5 F L 05/25/23 11:24 Pulse 91 05/25/23 11:24 Resp 16 05/25/23 11:24 BP 144/71 05/25/23 14:00 Pulse Ox 96 05/25/23 14:00 O2 Del Method Room Air 05/25/23 11:24 05/25/23 05/25/23 05/25/23 06:59 14:59 22:59 Intake Total 1000 / 1000 Balance 1000 / 1000 Weight last 48 hrs Weight 53.07 kg Physical Exam Narrative: Accompanied by her . Const: COMMON NORMALS: patient oriented x3 and alert GENERAL APPEARANCE: cooperative ORIENTATION/CONSCIOUSNESS: Yes awake HENMT: COMMON NORMALS: oropharynx normal Neck/C-Spine: COMMON NORMALS: no JVD Resp: COMMON NORMALS: normal respiratory effort and clear to auscultation bi laterally AUSCULTATION: clear to auscultation bilaterally Cardio: COMMON NORMALS: no JVD, regular rhythm, S1 normal heart sound present, S2 normal heart sound present and No murmurs present (Cardio) RHYTHM: regular rhythm HEART SOUNDS: S1 normal heart sound present and S2 normal heart sound present GI: COMMON NORMALS: Normal to inspection, nondistended, normoactive bowel sounds present, Soft to palpation and non-tender PALPATION: Yes Soft to palpation Extremity: COMMON NORMALS: no joint enlargement and no pedal edema Neuro: COMMON NORMALS: patient oriented x3 and moves all extremities SENSORIUM/ORIENTATION: Yes alert Skin: COMMON NORMALS: no rashes or lesions noted GENERAL SKIN EXAM: no rashes or lesions noted Data 05/25/23 11:55 05/25/23 11:55 A&P Assessment and plan (1) Stricture of ascending colon: Pending surgical assessment, consideration of further assessment with suspected possibly colonic malignancy with metastatic disease. Possible colonoscopy, consideration of possible palliative resection given appears to have symptoms of obstruction. Discussed briefly with her and her , they will be dis cussing further with the surgeon. In case of surgical intervention, she does report that she has been quite fatigable and also short of breath with exertion. Denies any prior pulmonary illness that is known, denies any symptoms to suggest PE. No THIERNO. No chest pain or pressure, denies prior history of CAD or stroke. Former smoker. In case of surgical intervention some increasing risk given limited exertional capacity. Suspected metastatic malignancy. Will obtain baseline EKG. BNP unfortunately may not be useful given suspected metastatic pulmonary disease. Discussed also with her and her regarding severe thrombocytosis, as per brief discussion with hematology this would rather be suspected a secondary process, should not elevate her risk of clotting, bleeding. As she is having iron deficiency anemia, only SCD for DVT prophylaxis due to risk of bleeding, worsening anemia. We will check baseline CEA. As per discussion we will additionally assess with CT chest with contrast both with dyspnea as well as suspected metastatic malignancy. Check ferritin, TIBC. NPO with gentle IV hydration.Antiemetic as needed. Monitor for fluid overload. Reviewed CBC, chemistry, UA, abdominal CT and chest x-ray. (2) Colonic obstruction: As above. She is unable to tolerate oral intake, with eructation, no flatus. NGT to be placed for decompression. NPO. Surgical assessment and discussion of options. (3) Cancer, metastatic to liver: Suspected metastatic disease. Further assessment as above. (4) Cancer, metastatic to lung: Additional assessment with contrast CT study. (5) Microcytic anemia: Suspected iron deficiency anemia. Check ferritin, TIBC. Noted low MCV, severe thrombocytosis, possibly reactive to malignancy, iron deficiency. Iron supplementation based on iron studies. (6) Dyspnea on exertion: Able to only walk a short distance before having to stop to catch her breath. Suspect secondary to likely metastatic malignancy with noted pulmonary nodules. GISELE. Additional assessment with CT chest. At least at rest he is maintaining saturation mid 90s. Former smoker, but denies any known lung disease. No symptoms of PE. Obtain baseline EKG. Will assess TTE. No no symptoms or signs of decompensated CHF on exam. (7) Abnormal urinalysis: Repeat. Denies urinary symptoms. Plan GERD: Continue PPI Vertebral fracture Other medical problems Discussed with ER physician. ER documentation reviewed. Attestations Medical Necessity Statement*: Admission of over 2 midnights anticipated for assessment management of symptomatic colonic obstruction with stricture suspected new diagnosis of possibly colonic malignancy with metastatic disease to liver and lungs, severe t hrombocytosis. Diagnoses Stricture of ascending colon K56.699 Colonic obstruction K56.609 Cancer, metastatic to liver C78.7 Cancer, metastatic to lung C78.00 Microcytic anemia D50.9 Dyspnea on exertion R06.09 Abnormal urinalysis R82.90
--- NOTE | 2023-05-25 16:35 | CTR_ITS ---
PROCEDURE INFORMATION: Exam: CT Chest With Contrast; Diagnostic Exam date and time: 05/25/2023 4:49 PM Age: 62 years old Clinical indication: Dyspnea; Additional info: Suspected metastatic disease, dyspnea on exertion TECHNIQUE: Imaging protocol: Diagnostic computed tomography of the chest with contrast. Radiation optimization: All CT scans at this facility use at least one of these dose optimization techniques: automated exposure control; mA and/or kV adjustment per patient size (includes targeted exams where dose is matched to clinical indication); or iterative reconstruction. Contrast material: OMNIPAQUE 350; Contrast volume: 75 ml; Contrast route: INTRAVENOUS (IV); REPORTING DATA: Count of CT and Cardiac NM exams in prior 12 months: This patient has received 0 known CTs and 0 known cardiac nuclear medicine studies in the 12 months prior to the current study. COMPARISON: CR XR chest 1V portable [id number] 05/25/2023 11:58 AM RADIATION DOSE METRICS: Total DLP (mGy-cm): 221.65 FINDINGS: Lungs: Multifocal metastatic disease throughout both lung mcclure measuring up to 3.8 cm in the left lower lobe. Emphysematous changes. Pleural spaces: Unremarkable. No pneumothorax. No pleural effusion. Heart: Unremarkable. No cardiomegaly. No pericardial effusion. Coronary arteries: Coronary artery atherosclerotic calcifications. Lymph nodes: Right hilar 2.7 cm irregular enlarged lymph node reflecting metastatic disease. Vasculature: Unremarkable. No aortic aneurysm. Diaphragm: Small hiatal hernia. Liver: Right hepatic lobe 9.5 cm heterogeneous mass likely reflecting malignancy. Bones/joints: L1 vertebral body superior endplate compression fracture without retropulsion of bony fragments. T8 vertebral body benign hemangioma. Soft tissues: Unremarkable. CT/CT chest w con* [id number] IMPRESSION: 1. Multifocal metastatic disease throughout both lung mcclure measuring up to 3.8 cm in the left lower lobe. 2. Right hilar 2.7 cm irregular enlarged lymph node reflecting metastatic disease. 3. Emphysematous changes. 4. L1 vertebral body superior endplate compression fracture without retropulsion of bony fragments. 5. T8 vertebral body benign hemangioma. 6. Small hiatal hernia. 7. Coronary artery atherosclerotic calcifications. 8. Right hepatic lobe 9.5 cm heterogeneous mass likely reflecting malignancy.
[2023-05-25] MEDS: lactated ringers 1,000 ML 75 ML IV (16:54)
[2023-05-25] MEDS: pantoprazole 40 mg SDV IVP (17:03)
--- NOTE | 2023-05-25 17:18 | XRR_ITS ---
PROCEDURE INFORMATION: Exam: XR Chest Exam date and time: 05/25/2023 5:44 PM Age: 62 years old Clinical indication: Device placement; Ng tube; Additional info: Ng placement TECHNIQUE: Imaging protocol: Radiologic exam of the chest. Views: 1 view. COMPARISON: CT chest w con* [id number] 05/25/2023 4:49 PM FINDINGS: Abdomen and lower thorax for feeding tube placement. The distal end of a feeding tube is looped in the stomach with its tip near the GE junction. Nonobstructive bowel gas pattern. Multiple pulmonary nodules are noted. XR/XR chest 1V portable [id number] IMPRESSION: As above.
[2023-05-25 17:55] LABS: Ferritin 42 ng/mL (15-150); Iron 12 ug/dL (37-145); Total Iron Binding Capacity 393 mcg/dl; Unsaturated Iron Binding 381 ug/dL (112-347)
[2023-05-25 18:00] LABS: LAB Peripheral Smear Sent for Review
--- NOTE | 2023-05-25 18:09 | ECG_ITS ---
[facility] Test Date: 2023-05-25 Pat Name: Aida Heller Department: Room: 279 Gender: Female Nitrating Acid Mixer: : 1960 Requested By: Pipe Vivas Order Number: [id number] Leti MD: Mara Chambers M.D. Measurements Intervals [place] Rate: 78 P: 48 IL: 110 QRS: 55 QRSD: 98 T: 8 QT: 389 QTc: 443 Interpretive Statements SINUS RHYTHM WITH SHORT IL INTERVAL NONSPECIFIC ST & T-WAVE ABNORMALITY No previous ECG available for comparison Electronically Signed On 05-25-2023 20:55:39 CDT by Mara Chambers M.D. [email or web address]
[2023-05-25 18:41] LABS: Charge for UA Resulting for Rev
[2023-05-25 18:48] LABS: Urine Appearance Clear (CLEAR); Urine Color Yellow (Yellow); pH Urine 6.5 (5-7)
[2023-05-25 18:49] LABS: Add Urine Microscopic? YES; Bilirubin Urine 1+ (Negative); Blood Urine 2+ (Negative); Glucose Urine UA Norm (Normal); Ketones Urine 1+ (Negative); Leukocyte Esterase Urine Trace (Negative); Nitrate Urine Positive (Negative); Protein Urine 1+ (Negative); Urobilinogen Urine Norm (Negative)
[2023-05-25 21:29] LABS: Tumor Marker Alpha Fetoprotein 3.1 ng/mL (0-8.3)
[2023-05-26] VITALS (10 sets, daily range): BP systolic 131–155; BP diastolic 75–94; PULSE 72–95; RESP 14–19; TEMP 36.2–36.9; O2SAT 90–96
[2023-05-26] MEDS: ondansetron 2 mg/ML SDV 2 mL 4 MG IVP ×5 (00:07→23:05)
[2023-05-26] MEDS: acetaminophen 325 mg Tablet 650 MG PO (00:20)
[2023-05-26 05:24] LABS: Basophils % 0.4 %; Eosinophils % 0.1 %; Hematocrit 29.7 % (36-47); Lymphocytes # 1.3 10^3/uL (0.8-4.8); Lymphocytes % 12.3 %; Mean Corpuscular HGB Conc 27.6 g/dL (30-55); Mean Corpuscular Hemoglobin 17.3 pg (27-33); Mean Corpuscular Volume 62.7 fl (85-98); Mean Platelet Volume 8.8 fL (7.4-10.4); Monocytes # 1.1 10^3/uL (0.2-0.9); Monocytes % 10.6 %; Neutrophils # 8.18 10^3/uL (1.8-7.7); Neutrophils % 76.4 %; Nucleated Red Blood Cells % 0 %; Platelet Count 1332 10^3/cmm (157-399); Red Blood Count 4.74 10^6/uL (3.85-5.65); Red Cell Distribution Width 25.3 % (12.1-15.1); White Blood Count 10.69 10^3/uL (3.29-11.43)
[2023-05-26 05:56] LABS: Alanine Aminotransferase 6 U/L (0-33); Albumin Level 3.7 g/dL (3.5-5.2); Alkaline Phosphatase 101 U/L (35-105); Anion Gap 14.1 (5-19); Aspartate Amino Transferase 13 U/L (0-32); Blood Urea Nitrogen 24 mg/dL (8-23); Calcium 9.3 mg/dL (8.5-10.5); Carbon Dioxide 26 mmol/L (22-29); Chloride 98 mmol/L (98-107); Globulin 3.1 g/dL (1.3-4.6); Glomerular Filtration Rate 72.4 mL/min (90-130); Glucose 117 mg/dL (65-115); Magnesium 2.5 mg/dL (1.7-2.3); Osmolality Calculated 283 mOsm/kg (285-295); Potassium 4.1 mmol/L (3.5-5.1); Sodium 134 mmol/L (136-145); Total Bilirubin 0.3 mg/dL (0.15-1.2); Total Protein 6.8 g/dL (6.6-8.7)
--- NOTE | 2023-05-26 06:00 | USCV_ITS ---
Aida Heller Age: 62 Gender: F : 1960 Exam Date: 05/26/2023 07:55 Ordering Phys: Pipe Vivas MD Technologist: Daniel Aguilar [place] [facility] [place]: dyspnea on exertion BP: 131 / 76 HR: 87 Rhythm: Sinus Technical Quality: Adequate MEASUREMENTS (Male / Female) Normal Values 2D ECHO LVOT Diameter 2.0 cm LV Ejection Fraction MOD 2C 68.5 % LV Ejection Fraction 2C AL 68.3 % LA Diameter 2.9 cm LA Width 3.1 cm LA Height 4.8 cm RA Width 2.8 cm RA Height 3.9 cm Aorta at Sinotubular Diameter 1.9 cm IVC Diameter 1.6 cm M-MODE Aortic Annulus Diameter 2.7 cm LA Ao Ratio MM 1.0 MV E Point Septal Separation 0.5 cm DOPPLER AV Peak Velocity 112.0 cm/s LVOT Peak Velocity 108.0 cm/s AV Area Cont Eq vti 2.9 cm squared AV Area Cont Eq pk 3.1 cm squared MV Peak Velocity 88.0 cm/s MV Area PHT 5.0 cm squared Mitral E to A Ratio 0.8 MV E' Velocity 37.0 cm/s Mitral E to MV E' Ratio 6.1 Mitral E to LV E' Lateral Ratio 4.8 Mitral E to LV E' Septal Ratio 8.3 TR Peak Velocity 247.8 cm/s TR Peak Gradient 24.6 mmHg TR Mean Velocity 184.6 cm/s TR Mean Gradient 15.0 mmHg TR Velocity Time Integral 52.0 cm Right Atrial Pressure 3.0 mmHg Pulmonary Artery Systolic Pressu 27.6 mmHg PV Peak Velocity 64.3 cm/s RV Acceleration Time 0.1 s RV Ejection Time 0.3 s RV AcT/ET 0.5 FINDINGS Left Ventricle Normal left ventricular size, systolic function and wall thickness, with no regional wall motion abnormalities. Left ventricular ejection fraction is calculated at 66%. Right Ventricle Normal right ventricular size and systolic function, RVSP 27.6 mmHg. Right Atrium Normal right atrial size. Left Atrium Mildly increased left atrial size. Mitral Valve Trace mitral valve regurgitation. Aortic Valve Structurally normal trileaflet aortic valve. Tricuspid Valve Trace tricuspid valve regurgitation. Pulmonic Valve No pulmonary valve regurgitation. Pericardium No pericardial effusion. Aorta Normal aorta. IVC Normal inferior vena cava. CONCLUSIONS Normal left ventricular size, systolic function and wall thickness, with no regional wall motion abnormalities. Left ventricular ejection fraction is calculated at 66%. Mildly increased left atrial size. Trace mitral valve regurgitation. Trace tricuspid valve regurgitation. Tl Alvarado MD (Electronically Signed) Final Date: 26 May 2023 15:29 S
[2023-05-26] MEDS: lactated ringers 1,000 ML 75 ML IV ×2 (06:19→23:02)
[2023-05-26] MEDS: morphine 4 mg/mL SDV 1 mL 2 MG IVP ×3 (08:46→23:06)
[2023-05-26] MEDS: iron sucrose 200 MG in sodium chloride 0.9% (100 ml) 100 ML 220 MG IV (09:29)
--- NOTE | 2023-05-26 10:11 | PM.CONSULT ---
Providers/Reason For Consult Consulting Physician/Specialty*: Dr. Beau Tony, DO/General surgery Reason for Consult*: Partial bowel obstruction Attending Physician: Pipe Vivas Primary Care Provider: Leah Campos APN History of Present Illness History of Present Illness Aida Heller is a 62 year old female who was scheduled for EGD and colonoscopy in the near future with me. She presented to the hospital with abdominal pain nausea and vomiting. She reports that she does not ever passed flatus and that her last bowel movement was 3 days ago. Abdominal pain is diffuse and constant. Palpation makes pain worse. Nothing makes pain better. The pain does not radiate. She has had anemia with positive Hemoccult. CT of the chest abdomen pelvis shows neoplastic process in the proximal transverse colon causing partial obstruction along with masses in the right hepatic lobe and lungs. Review of Systems General: Reports: 10 or more systems reviewed and unremarkable except in HPI and below Medications/Allergies Home Medications Medication Instructions Recorded Confirmed Last Taken Type ondansetron 4 mg disintegrating 4 mg PO Q8H PRN nausea and 05/10/23 05/25/23 Unknown Rx tablet vomiting #30 tabs pantoprazole 40 mg tablet,delayed 40 mg PO BID 6 weeks #84 tabs 05/16/23 05/25/23 Unknown Rx release (Protonix) acetaminophen 500 mg tablet 500 - 1,000 mg PO Q6H PRN Pain 05/25/23 05/25/23 Unknown History Allergies Allergy/AdvReac Type Severity Reaction Status Date / Time ciprofloxacin Allergy Mild ADR-Anxiety Verified 05/25/23 12:03 Current Medications Generic Name Dose Route Start Last Admin Trade Name Freq PRN Reason Stop Dose Admin Acetaminophen 650 mg 05/25/23 16:14 05/26/23 00:20 Acetaminophen 325 Mg Tablet PO 650 mg Q6H PRN Administration Mild/Mod Pain Or Temp >/= 101 Lactated Ringer's 1,000 mls @ 75 mls/hr 05/25/23 16:15 05/26/23 06:19 Lactated Ringers IV 75 mls/hr .[id number] HONG Administration Iron Sucrose 200 mg/ Sodium 110 mls @ 220 mls/hr 05/26/23 09:00 05/26/23 09:29 Chloride IV 05/30/23 09:29 220 mls/hr Q24H HONG Administration Morphine Sulfate 2 mg 05/26/23 08:39 05/26/23 08:46 Morphine 4 Mg/Ml Sdv 1 Ml IVP 2 mg Q4H PRN Administration SEVERE PAIN Ondansetron HCl 4 mg 05/25/23 16:14 05/26/23 04:37 Ondansetron 2 Mg/Ml Sdv 2 Ml IVP 4 mg Q4H PRN Administration vomiting, or N/V if npo Pantoprazole Sodium 40 mg 05/25/23 16:15 05/25/23 17:03 Pantoprazole 40 Mg Sdv IVP 40 mg Q24H HONG Administration PFSH Acute PFSH: Medical History Diverticulitis Fluid level behind tympanic membrane of both ears GERD (gastroesophageal reflux disease) Lumbar burst fracture Otitis externa Post-menopausal osteoporosis Patient has had two fractures of the lumbar spine in the past year. Vitamin D deficiency Surgical History H/O section H/O local excision of skin lesion Left thigh: Pathology showed squamous of carcinoma History of cholecystectomy History of umbilical hernia repair Family History Mother Cancer Social History Smoking and tobacco status: former smoker Alcohol intake: never Substance/Drug Use: never Household members: spouse Marital status: Current occupational status: unemployed Vitals/I&O/Wt Last Vital Signs Temp 98.3 F 05/26/23 08:00 Pulse 82 05/26/23 08:00 Resp 18 05/26/23 08:46 BP 155/75 05/26/23 08:00 Pulse Ox 94 05/26/23 08:00 O2 Del Method Room Air 05/26/23 03:48 05/25/23 05/26/23 05/26/23 22:59 06:59 14:59 Intake Total 1337.5 / 1337.5 1000 / 2337.5 Output Total 250 / 250 Balance 1337.5 / 1337.5 750 / 2087.5 Weight last 48 hrs Weight 118 lb 9 oz Weight 117 lb Physical Exam Narrative: General : Patient is well developed , no acute distress, oriented x3 Head : Normal cephalic, a-traumatic. Ears : Pinnae and external canal are normal. Hearing is normal. Eyes : PERRLA, Sclera and injection are normal. No conjunctival discharge. Nose : Mucous membranes are without erythema. Throat : buccal mucosa is normal, gums are without significant recession or hypertrophy. Lungs : Equal chest rise bilaterally, no use of accessory muscles, trachea is midline. Cor : Rate and rhythm are normal. Abdomen : Soft, mild distention, NT, no g/r/m Extremities : No edema, no cyanosis or clubbing, dorsalis pedis pulses are present bilaterally, non-tender to palpation of calves. Upper extremities are normal bilaterally. Back : non-tender to palpation, no CVA tenderness. Neuro : CN II - XII intact, Upper and lower extremities have equal and full strength Data 05/26/23 05:00 05/26/23 05:00 A&P Assessment and plan (1) Stricture of ascending colon: (2) Cancer, metastatic to liver: (3) Cancer, metastatic to lung: Plan Bowel prep Tomorrow for EGD and colonoscopy The risks and benefits of the procedure, including bleeding, infection, intestinal perforation requiring surgery, missed lesion were explained to the patient. The patient is understanding of the risks and wishes to proceed. Coding Level of Care Code 51573 Diagnoses Stricture of ascending colon K56.699 Cancer, metastatic to liver C78.7 Cancer, metastatic to lung C78.00
[2023-05-26] MEDS: magnesium citrate Btl 296 mL PO ×2 (10:50→14:04)
[2023-05-26] MEDS: bisacodyl 5 mg Tablet 40 MG PO (10:50)
--- NOTE | 2023-05-26 15:57 | PC.NURSE ---
pt abdomen very distended, no bowel sounds present. Charge nurse advised, Dr. Tony advised as well.
[2023-05-26] MEDS: Fleet Enema 133 mL Enema PR (16:08)
[2023-05-26] MEDS: pantoprazole 40 mg SDV IVP (16:40)
--- NOTE | 2023-05-26 19:08 | PC.NURSE ---
only two quarter sized BMs passed this shift, after administration of fleet enema. Charge Nurse Adriana and Dr. Tony notified, no new orders.
--- NOTE | 2023-05-26 20:10 | P.PN_ITS ---
Subjective Subjective: She is feeling about the same today. No new additional symptoms. Vitals/I&O/Wt Last Vital Signs Temp 97.2 F L 05/26/23 20:00 Pulse 95 05/26/23 20:00 Resp 18 05/26/23 20:00 BP 144/91 05/26/23 20:00 Pulse Ox 90 05/26/23 20:00 O2 Del Method Room Air 05/26/23 03:48 05/26/23 05/26/23 05/26/23 06:59 14:59 22:59 Intake Total 1000 / 2337.5 537.5 / 537.5 Output Total 250 / 250 Balance 750 / 2087.5 537.5 / 537.5 Weight last 48 hrs Weight 53.779 kg Weight 53.07 kg Physical Exam Narrative: Accompanied by family. Const: COMMON NORMALS: patient oriented x3 and alert GENERAL APPEARANCE: cooperative ORIENTATION/CONSCIOUSNESS: Yes awake HENMT: COMMON NORMALS: oropharynx normal OTHER: NGT in place. Neck/C-Spine: COMMON NORMALS: no JVD Resp: COMMON NORMALS: normal respiratory effort and clear to auscultation bilaterally AUSCULTATION: clear to auscultation bilaterally Cardio: COMMON NORMALS: no JVD, regular rhythm, S1 normal heart sound present, S2 normal heart sound present and No murmurs present (Cardio) RHYTHM: regular rhythm HEART SOUNDS: S1 normal heart sound present and S2 normal heart sound present GI: COMMON NORMALS: Normal to inspection, nondistended, normoactive bowel sounds present, Soft to palpation and non-tender PALPATION: Yes Soft to palpation Extremity: COMMON NORMALS: no joint enlargement and no pedal edema Neuro: COMMON NORMALS: patient oriented x3 and moves all extremities SENSORIUM/ORIENTATION: Yes alert Skin: COMMON NORMALS: no rashes or lesions noted GENERAL SKIN EXAM: no rashes or lesions noted Data 05/26/23 05:00 05/26/23 05:00 A&P Assessment and plan (1) Stricture of ascending colon: She and her family had additional discussion with surgery with consideration of options, plans are for EGD and colonoscopy tomorrow. Discussed with surgery. Reviewed CT results with her and family. Noted liver mass as well. Discussed we sent out AFP. Reviewed CEA result, noted elevated, discussed with her and family. NGT decompression. At risk of electrolyte abnormality. Chemistry reviewed. Follow-up chemistry requested. In case of surgical intervention, she does report that she has been quite f atigable and also short of breath with exertion. Denies any prior pulmonary illness that is known, denies any symptoms to suggest PE. No THIERNO. No chest pain or pressure, denies prior history of CAD or stroke. Former smoker. In case of surgical intervention some increasing risk given limited exertional capacity. Suspected metastatic malignancy. Will obtain baseline EKG. BNP unfortunately may not be useful given suspected metastatic pulmonary disease. Discussed also with her and her regarding severe thrombocytosis, as per brief discussion with hematology this would rather be suspected a secondary process, should not elevate her risk of clotting, bleeding. As she is having iron deficiency anemia, only SCD for DVT prophylaxis due to risk of bleeding, worsening anemia. We will check baseline CEA. As per discussion we will additionally assess with CT chest with contrast both with dyspnea as well as suspected metastatic malignancy. Noted severe iron deficiency. Discussed with her starting IV iron. NPO with gentle IV hydration.Antiemetic as needed. Monitor for fluid overload. Reviewed CBC, chemistry, UA, abdominal CT and chest x-ray. (2) Colonic obstruction: As above. Preparations for EGD and colonoscopy. She is unable to tolerate oral intake, with eructation, no flatus. NGT to be placed for decompression. NPO. Surgical assessment and discussion of options. (3) Cancer, metastatic to liver: Suspected metastatic disease. Further assessment as above. (4) Cancer, metastatic to lung: Reviewed CT results. (5) Microcytic anemia: Noted severe iron deficiency. Discussed with her starting IV iron treatment. Noted low MCV, severe thrombocytosis, possibly reactive to malignancy, iron deficiency. Iron supplementation based on iron studies. (6) Dyspnea on exertion: Noted metastatic disease in both lungs on CT chest. Also emphysematous changes. Reviewed TTE, unremarkable. Able to only walk a short distance before having to stop to catch her breath. Suspect secondary to likely metastatic malignancy with noted pulmonary nodules. GISELE. Additional assessment with CT chest. At least at rest he is maintaining saturation mid 90s. Former smoker, but denies any known lung disease. No symptoms of PE. No no symptoms or signs of decompensated CHF on exam. (7) Abnormal urinalysis: Repeat. Denies urinary symptoms. Plan GERD: Continue PPI Vertebral fracture Other medical problems Discussed with case management. Attestations Medical Necessity Statement*: Continue admission for assessment management of colonic obstruction, unable to tolerate oral intake, with colonic stricture, suspected metastatic malignancy. Diagnoses Stricture of ascending colon K56.699 Colonic obstruction K56.609 Cancer, metastatic to liver C78.7 Cancer, metastatic to lung C78.00 Microcytic anemia D50.9 Dyspnea on exertion R06.09 Abnormal urinalysis R82.90
[2023-05-27] VITALS (15 sets, daily range): BP systolic 117–137; BP diastolic 59–80; PULSE 64–99; RESP 16–20; TEMP 36.2–36.9; O2SAT 91–100
[2023-05-27] MEDS: ondansetron 2 mg/ML SDV 2 mL 4 MG IVP ×2 (05:30→21:27)
[2023-05-27] MEDS: morphine 4 mg/mL SDV 1 mL 2 MG IVP ×3 (05:30→21:27)
[2023-05-27 05:44] LABS: Basophils % 0.3 %; Eosinophils % 0.2 %; Hematocrit 27.1 % (36-47); Lymphocytes # 1.2 10^3/uL (0.8-4.8); Lymphocytes % 11.3 %; Mean Corpuscular HGB Conc 27.7 g/dL (30-55); Mean Corpuscular Hemoglobin 17.1 pg (27-33); Mean Corpuscular Volume 61.9 fl (85-98); Mean Platelet Volume 8.8 fL (7.4-10.4); Monocytes # 1.1 10^3/uL (0.2-0.9); Monocytes % 10.1 %; Neutrophils # 8.14 10^3/uL (1.8-7.7); Neutrophils % 77.1 %; Nucleated Red Blood Cells % 0.3 %; Platelet Count 1138 10^3/cmm (157-399); Red Blood Count 4.38 10^6/uL (3.85-5.65); Red Cell Distribution Width 25.2 % (12.1-15.1); White Blood Count 10.56 10^3/uL (3.29-11.43)
[2023-05-27 05:58] LABS: Alanine Aminotransferase 7 U/L (0-33); Albumin Level 3.5 g/dL (3.5-5.2); Alkaline Phosphatase 88 U/L (35-105); Aspartate Amino Transferase 16 U/L (0-32); Blood Urea Nitrogen 32 mg/dL (8-23); Calcium 8.8 mg/dL (8.5-10.5); Carbon Dioxide 36 mmol/L (22-29); Chloride 98 mmol/L (98-107); Globulin 2.7 g/dL (1.3-4.6); Glomerular Filtration Rate 72.4 mL/min (90-130); Glucose 114 mg/dL (65-115); Osmolality Calculated 304 mOsm/kg (285-295); Sodium 143 mmol/L (136-145); Total Bilirubin 0.2 mg/dL (0.15-1.2); Total Protein 6.2 g/dL (6.6-8.7)
[2023-05-27 06:00] LABS: Anion Gap 12.5 (5-19); Potassium 3.5 mmol/L (3.5-5.1)
[2023-05-27] MEDS: iron sucrose 200 MG in sodium chloride 0.9% (100 ml) 100 ML 220 MG IV (10:04)
[2023-05-27] MEDS: sodium chloride 0.9% 1,000 ML 30 ML IV (11:25)
--- NOTE | 2023-05-27 12:05 | PM.PN ---
Vitals/I&O/Wt Last Vital Signs Temp 97.8 F 05/27/23 11:19 Pulse 75 05/27/23 11:19 Resp 18 05/27/23 11:19 BP 128/75 05/27/23 11:19 Pulse Ox 95 05/27/23 11:19 O2 Del Method Nasal Cannula 05/27/23 11:19 O2 Flow Rate 4 05/27/23 11:19 05/26/23 05/27/23 05/27/23 22:59 06:59 14:59 Intake Total 692.5 / 1230.0 846.25 / 846.25 Output Total 1900 / 1900 300 / 300 Balance 692.5 / 1230.0 -1900 / -670.0 546.25 / 546.25 Weight last 48 hrs Weight 124 lb 9.6 oz Weight 118 lb 9 oz Data 05/27/23 05:15 05/27/23 05:15 Micro: Microbiology 05/25/23 17:51 Urine Culture - Preliminary Urine,Clean Catch Gram Negative Rods A&P Assessment and plan (1) Stricture of ascending colon: (2) Cancer, metastatic to liver: (3) Cancer, metastatic to lung: Plan EGD and colonoscopy The risks and benefits of the procedure, including bleeding, infection, intestinal perforation requiring surgery, missed lesion were explained to the patient. The patient is understanding of the risks and wishes to proceed. Attestations Medical Necessity Statement*: Per primary Coding Level of Care Code Acute Code for Chg Fwd Diagnoses Stricture of ascending colon K56.699 Cancer, metastatic to liver C78.7 Cancer, metastatic to lung C78.00
--- NOTE | 2023-05-27 12:28 | ANES.PREANE2 ---
Pre-Anesthetic Assessment Height/Weight: Height 1.65 m Weight 56.518 kg Temp Pulse Resp BP Pulse Ox O2 Del Method O2 Flow Rate 97.8 F 75 18 128/75 95 Nasal Cannula 4 05/27/23 11:19 05/27/23 11:19 05/27/23 11:19 05/27/23 11:19 05/27/23 11:19 05/27/23 11:19 05/27/23 11:19 Operation Date: 05/27/23 12:00 Proposed Procedures p EGD(Not Applicable) - Beau Tony DO s Colonoscopy(Not Applicable) - Beau Tony DO Familial anesthetic complications: None Was Beta Tara taken within 24 hours: N/A Was Clonidine taken within 24 hours: N/A Last intake: Intake Last Liquid Date 05/26/23 Last Liquid Time 23:30 Last Solid Date 05/26/23 Last Solid Time 17:00 Social No alcohol and No tobacco Exam alert, oriented x 3, clear to auscultation bilaterally and regular rate & rhythm Airway Mallampati: Class II Dentition: full GI Gastroesophageal Reflux Disease colonic obstruction w/ NGT in place, metastaticcancer Anesthetic Plan ASA status: 3 Anesthesia: General Risk of > 500 ml blood loss (7ml/kg in children): No Medications/Allergies Home Medications Medication Instructions Recorded Confirmed Last Taken Type ondansetron 4 mg disintegrating 4 mg PO Q8H PRN nausea and 05/10/23 05/25/23 Unknown Rx tablet vomiting #30 tabs pantoprazole 40 mg tablet,delayed 40 mg PO BID 6 weeks #84 tabs 05/16/23 05/25/23 Unknown Rx release (Protonix) acetaminophen 500 mg tablet 500 - 1,000 mg PO Q6H PRN Pain 05/25/23 05/25/23 Unknown History Allergies Allergy/AdvReac Type Severity Reaction Status Date / Time ciprofloxacin Allergy Mild ADR-Anxiety Verified 05/25/23 12:03 Current Medications Generic Name Dose Route Start Last Admin Trade Name Freq PRN Reason Stop Dose Admin Acetaminophen 650 mg 05/25/23 16:14 05/26/23 00:20 Acetaminophen 325 Mg Tablet PO 650 mg Q6H PRN Administration Mild/Mod Pain Or Temp >/= 101 Lactated Ringer's 1,000 mls @ 75 mls/hr 05/25/23 16:15 05/27/23 10:19 Lactated Ringers IV 0 mls/hr .[id number] HONG Infusion Iron Sucrose 200 mg/ Sodium 110 mls @ 220 mls/hr 05/26/23 09:00 05/27/23 10:04 Chloride IV 05/30/23 09:29 220 mls/hr Q24H HONG Administration Sodium Chloride 1,000 mls @ 30 mls/hr 05/27/23 11:30 05/27/23 11:25 Sodium Chloride 0.9% IV 05/28/23 11:29 30 mls/hr .Q24H HONG Administration Morphine Sulfate 2 mg 05/26/23 08:39 05/27/23 10:18 Morphine 4 Mg/Ml Sdv 1 Ml IVP 2 mg Q4H PRN Administration SEVERE PAIN Ondansetron HCl 4 mg 05/25/23 16:14 05/27/23 05:30 Ondansetron 2 Mg/Ml Sdv 2 Ml IVP 4 mg Q4H PRN Administration vomiting, or N/V if npo Pantoprazole Sodium 40 mg 05/25/23 16:15 05/26/23 16:40 Pantoprazole 40 Mg Sdv IVP 40 mg Q24H HONG Administration PFSH Anesthesia Medical History Diverticulitis Fluid level behind tympanic membrane of both ears GERD (gastroesophageal reflux disease) Lumbar burst fracture Otitis externa Post-menopausal osteoporosis Patient has had two fractures of the lumbar spine in the past year. Vitamin D deficiency Surgical History H/O section H/O local excision of skin lesion Left thigh: Pathology showed squamous of carcinoma History of cholecystectomy History of umbilical hernia repair Family History Mother Cancer Social History Smoking and tobacco status: former smoker Alcohol intake: never Substance/Drug Use: never Household members: spouse Marital status: Current occupational status: unemployed Data Anesthesia 05/27/23 05:15 05/27/23 05:15 Short CBC 05/26/23 05/27/23 Range/Units 05:00 05:15 WBC 10.69 10.56 (3.29-11.43) 10^3/uL Hgb 8.20 L 7.50 L (11.27-16.99) g/dL Hct 29.7 L 27.1 L (36-47) % MCV 62.7 L 61.9 L (85-98) fl Plt Count 1332 H 1138 H (157-399) 10^3/cmm Neut % (Auto) 76.4 77.1 % Neut # (Auto) 8.18 H 8.14 H (1.8-7.7) 10^3/uL BMP 05/25/23 05/26/23 05/27/23 11:55 05:00 05:15 Sodium 135 L 134 L 143 Potassium 4.3 4.1 3.5 Chloride 97 L 98 98 Carbon Dioxide 25 26 36 H BUN 20 24 H 32 H Creatinine 0.9 0.8 0.8 Glucose 121 H 117 H 114 Calcium 9.7 9.3 8.8 Liver Function 05/25/23 05/26/23 05/27/23 Range/Units 11:55 05:00 05:15 Total Bilirubin 0.3 0.3 0.2 (0.15-1.2) mg/dL AST 14 13 16 (0-32) U/L ALT 6 6 7 (0-33) U/L Alkaline Phosphatase 114 H 101 88 (35-105) U/L Albumin 4.2 3.7 3.5 (3.5-5.2) g/dL Urine 05/25/23 05/25/23 Range/Units 13:35 17:51 Urine Color Yellow Yellow (Yellow) Urine Appearance Clear Clear (CLEAR) Urine pH 5 6.5 (5-7) Ur Specific [place] 1.010 1.010 (1.005-1.030) Urine Protein 1+ H 1+ H (Negative) Urine Glucose (UA) Norm Norm (Normal) Urine Ketones Negative 1+ H (Negative) Urine Nitrate Positive H Positive H (Negative) Urine Bilirubin Neg 1+ H (Negative) Ur Leukocyte Esterase Trace H Trace H (Negative) Urine RBC 0-4 H (0-2) /hpf Urine WBC 0-4 H (0-5) /hpf Blood Bank 05/25/23 12:46 Blood Type O Positive Rho(D) Type Positive Antibody Screen Negative Microbiology 05/25/23 17:51 Urine Culture - Preliminary Urine,Clean Catch Gram Negative Rods Cardiac Studies: Echocardiogram 05/26/23
--- NOTE | 2023-05-27 13:00 | SUR.OPER ---
Ink used to waqas hepatic flexure mass.
[2023-05-27] MEDS: pantoprazole 40 mg SDV IVP (16:25)
[2023-05-27] MEDS: lactated ringers 1,000 ML 75 ML IV (16:56)
--- NOTE | 2023-05-27 21:46 | P.PN_ITS ---
Subjective Subjective: During my visit she states she is feeling slightly better today, no further vomiting so far with decompression. He is on bowel rest, however, awaiting EGD and colonoscopy. Vitals/I&O/Wt Last Vital Signs Temp 97.2 F L 05/27/23 20:00 Pulse 72 05/27/23 20:00 Resp 17 05/27/23 20:00 BP 135/80 05/27/23 20:00 Pulse Ox 98 05/27/23 20:00 O2 Del Method Room Air 05/27/23 20:00 O2 Flow Rate 1 05/27/23 17:00 05/27/23 05/27/23 05/27/23 06:59 14:59 22:59 Intake Total 2756.25 / 2756.25 153.75 / 2910.00 Output Total 1900 / 1900 300 / 300 Balance -1900 / -670.0 2456.25 / 2456.25 153.75 / 2610.00 Weight last 48 hrs Weight 56.518 kg Weight 53.779 kg Physical Exam Narrative: Accompanied by family. Const: COMMON NORMALS: patient oriented x3 and alert GENERAL APPEARANCE: cooperative ORIENTATION/CONSCIOUSNESS: Yes awake HENMT: COMMON NORMALS: oropharynx normal OTHER: NGT in place. Neck/C-Spine: COMMON NORMALS: no JVD Resp: COMMON NORMALS: normal respiratory effort and clear to auscultation bilaterally AUSCULTATION: clear to auscultation bilaterally Cardio: COMMON NORMALS: no JVD, regular rhythm, S1 normal heart sound present, S2 normal heart sound present and No murmurs present (Cardio) RHYTHM: regular rhythm HEART SOUNDS: S1 normal heart sound present and S2 normal heart sound present GI: COMMON NORMALS: Normal to inspection, nondistended, normoactive bowel sounds present, Soft to palpation and non-tender PALPATION: Yes Soft to palpation Extremity: COMMON NORMALS: no joint enlargement and no pedal edema Neuro: COMMON NORMALS: patient oriented x3 and moves all extremities SENSORIUM/ORIENTATION: Yes alert Skin: COMMON NORMALS: no rashes or lesions noted GENERAL SKIN EXAM: no rashes or lesions noted Data 05/27/23 05:15 05/27/23 05:15 Micro: Microbiology 05/25/23 17:51 Urine Culture - Preliminary Urine,Clean Catch Gram Negative Rods A&P Assessment and plan (1) Stricture of ascending colon: Bowel rest, NG decompression. EGD, colonoscopy today. Further consideration by her and surgery of possible right hemicolectomy, possible ileostomy and other options considered for the coming days. Discussed with surgery. Colonoscopy documentation reviewed. Noted partially obstructing large circumferential mass. EGD report reviewed. Unremarkable. On CT chest noted liver mass as well. Discussed we sent out AFP. CEA elevated, discussed with her and family. NGT decompression. At risk of electrolyte abnormality. Chemistry reviewed. Follow-up chemistry requested. In case of surgical intervention, she does report that she has been quite fatigable and also short of breath with exertion. Denies any prior pulmonary illness that is known, denies any symptoms to suggest PE. No THIERNO. No chest pain or pressure, denies prior history of CAD or stroke. Former smoker. In case of surgical intervention some increasing risk given limited exertional capacity. Suspected metastatic malignancy. Will obtain baseline EKG. BNP unfortunately may not be useful given suspected metastatic pulmonary disease. Discussed also with her and her regarding severe thrombocytosis, as per brief discussion with hematology this would rather be suspected a secondary process, should not elevate her risk of clotting, bleeding. As she is having iron deficiency anemia, only SCD for DVT prophylaxis due to risk of bleeding, worsening anemia. We will check baseline CEA. As per discussion we will additionally assess with CT chest with contrast both with dyspnea as well as suspected metastatic malignancy. Noted severe iron deficiency. Started on IV iron. NPO with gentle IV hydration.Antiemetic as needed. Monitor for fluid overload. Reviewed CBC, chemistry, UA, abdominal CT and chest x-ray. (2) Colonic obstruction: As above. Preparations for EGD and colonoscopy noted as above. Further consideration of neck steps/surgical intervention. She so far has been feeling better with decompression, bowel rest. CLD trial after procedure. She is unable to tolerate oral intake, with eructation, no flatus. NGT to be placed for decompression. NPO. Surgical assessment and discussion of options. (3) Cancer, metastatic to liver: Suspected metastatic disease. Further assessment as above. (4) Cancer, metastatic to lung: Reviewed CT results. (5) Microcytic anemia: Noted severe iron deficiency. Started IV iron treatment. Noted low MCV, severe thrombocytosis, possibly reactive to malignancy, iron deficiency. Iron supplementation based on iron studies. (6) Dyspnea on exertion: Noted metastatic disease in both lungs on CT chest. Also emphysematous changes. Reviewed TTE, unremarkable. Able to only walk a short distance before having to stop to catch her breath. Suspect secondary to likely metastatic malignancy with noted pulmonary nodules. GISELE. Additional assessment with CT chest. At least at rest he is maintaining saturation mid 90s. Former smoker, but denies any known lung disease. No symptoms of PE. No no symptoms or signs of decompensated CHF on exam. (7) Abnormal urinalysis: Did not have symptoms, urine culture reviewed, is growing gram-negative rods, suspected UTI. Will add ceftriaxone Follow-up culture Plan GERD: Continue PPI Vertebral fracture Other medical problems Discussed with case management. Attestations Medical Necessity Statement*: Continue admission for assessment management of colonic obstruction, further assessment of new metastatic malignancy. Diagnoses Stricture of ascending colon K56.699 Colonic obstruction K56.609 Cancer, metastatic to liver C78.7 Cancer, metastatic to lung C78.00 Microcytic anemia D50.9 Dyspnea on exertion R06.09 Abnormal urinalysis R82.90
[2023-05-27] MEDS: cefTRIAXone 1,000 MG in sodium chloride 0.9% (plus) 50 ML 100 MG IV (22:21)
[2023-05-28] VITALS (53 sets, daily range): BP systolic 115–156; BP diastolic 67–90; PULSE 68–107; RESP 12–20; TEMP 36.2–37.3; O2SAT 90–100
[2023-05-28 05:38] LABS: Basophils # 0.1 10^3/uL (0.0-0.1); Basophils % 0.5 %; Eosinophils # 0.3 10^3/uL (0.0-0.8); Eosinophils % 2.4 %; Hematocrit 25.8 % (36-47); Lymphocytes # 1.3 10^3/uL (0.8-4.8); Lymphocytes % 12.5 %; Mean Corpuscular HGB Conc 26.4 g/dL (30-55); Mean Corpuscular Hemoglobin 17.2 pg (27-33); Mean Corpuscular Volume 65.3 fl (85-98); Mean Platelet Volume 8.5 fL (7.4-10.4); Monocytes # 0.8 10^3/uL (0.2-0.9); Monocytes % 7.1 %; Neutrophils # 8.09 10^3/uL (1.8-7.7); Neutrophils % 76.5 %; Nucleated Red Blood Cells % 0.2 %; Platelet Count 839 10^3/cmm (157-399); Red Blood Count 3.95 10^6/uL (3.85-5.65); Red Cell Distribution Width 25.1 % (12.1-15.1); White Blood Count 10.57 10^3/uL (3.29-11.43)
[2023-05-28] MEDS: morphine 4 mg/mL SDV 1 mL 2 MG IVP ×2 (05:53→21:19)
[2023-05-28] MEDS: ondansetron 2 mg/ML SDV 2 mL 4 MG IVP (05:53)
[2023-05-28 05:59] LABS: Alanine Aminotransferase 7 U/L (0-33); Albumin Level 3.3 g/dL (3.5-5.2); Alkaline Phosphatase 80 U/L (35-105); Anion Gap 8.9 (5-19); Aspartate Amino Transferase 13 U/L (0-32); Blood Urea Nitrogen 19 mg/dL (8-23); Calcium 8.1 mg/dL (8.5-10.5); Carbon Dioxide 35 mmol/L (22-29); Chloride 99 mmol/L (98-107); Globulin 2.4 g/dL (1.3-4.6); Glomerular Filtration Rate 63.2 mL/min (90-130); Glucose 80 mg/dL (65-115); Osmolality Calculated 291 mOsm/kg (285-295); Sodium 140 mmol/L (136-145); Total Bilirubin 0.2 mg/dL (0.15-1.2); Total Protein 5.7 g/dL (6.6-8.7)
[2023-05-28 06:08] LABS: Potassium 2.9 mmol/L (3.5-5.1)
[2023-05-28] MEDS: dextrose 5%-sod chloride 0.9% 1,000 ML 30 ML IV (08:42)
[2023-05-28] MEDS: lidocaine 1% 5 ML in potassium chloride premix 100 ML 26.25 ML IV ×2 (08:42→22:51)
--- NOTE | 2023-05-28 11:30 | ANES.PAUD2 ---
Pre-Anesthetic Update Pre-Anesthetic Assessment: Date of Surgery/Procedure: 05/28/23 Proposed Procedure: Operation Date: 05/27/23 12:00 Proposed Procedures p EGD(Not Applicable) - Beau Tony DO s Colonoscopy(Not Applicable) - Beau Tony DO Operation Date: 05/28/23 12:00 Proposed Procedures p Diagnostic Laparoscopy with possible right hemicolectomy, with possible ostomy(Not Applicable) - Beau Tony, DO Any changes to Pre-Anesthetic Assessment?: No Last Intake: Intake Last Liquid Date 05/26/23 Last Liquid Time 23:30 Last Solid Date 05/26/23 Last Solid Time 17:00 Labs Last 48hrs: Short CBC 05/27/23 05/28/23 Range/Units 05:15 05:03 WBC 10.56 10.57 (3.29-11.43) 10^ 3/uL Hgb 7.50 L 6.80 L (11.27-16.99) g/ dL Hct 27.1 L 25.8 L (36-47) % MCV 61.9 L 65.3 L D (85-98) fl Plt Count 1138 H 839 H (157-399) 10^3/c mm Neut % (Auto) 77.1 76.5 % Neut # (Auto) 8.14 H 8.09 H (1.8-7.7) 10^3/u L BMP 05/27/23 05/28/23 05:15 05:03 Sodium 143 140 Potassium 3.5 2.9 L Chloride 98 99 Carbon Dioxide 36 H 35 H BUN 32 H 19 Creatinine 0.8 0.9 Glucose 114 80 Calcium 8.8 8.1 L Liver Function 05/27/23 05/28/23 Range/Units 05:15 05:03 Total Bilirubin 0.2 0.2 (0.15-1.2) mg/dL AST 16 13 (0-32) U/L ALT 7 7 (0-33) U/L Alkaline Phosphata se 88 80 (35-105) U/L Albumin 3.5 3.3 L (3.5-5.2) g/dL Blood Bank 05/25/23 12:46 Blood Type O Positive Rho(D) Type Positive Antibody Screen Negative Vitals: Temperature 98.8 F 05/28/23 11:25 Temperature Source Temporal Artery S can 05/28/23 11:25 Pulse Rate 77 05/28/23 12:00 Pulse Rhythm Regular 05/28/23 08:00 Pulse Strength 2+ Slightly Dimin ished 05/28/23 08:00 Respiratory Rate 16 05/28/23 12:00 Respiratory Effort Spontaneous, Non- Labored 05/28/23 11:30 Respiratory Depth Normal 05/28/23 11:13 Respiratory Patter n Normal 05/28/23 11:13 Blood Pressure 118/74 05/28/23 12:00 Blood Pressure Celia n 93 05/28/23 12:00 Blood Pressure Pos ition Semi Fowlers 05/28/23 11:13 Pulse Oximetry 99 05/28/23 11:55 Oxygen Delivery Me thod Nasal Cannula 05/28/23 12:00 Oxygen Flow Rate 2 05/28/23 12:00 Sepsis Recent Feve r Within 48 Hours No 05/25/23 11:24 Exam: Pre-Anes Outpt Exam: alert, oriented x 3, clear to auscultation bilaterally and regular rate & rhythm Cardiac Studies: Echocardiogram 05/26/23
[2023-05-28] MEDS: scopolamine 1.5 Patch 1 PATCH TRANSDERMA (11:37)
--- NOTE | 2023-05-28 11:44 | PM.PN ---
Vitals/I&O/Wt Last Vital Signs Temp 98.4 F 05/28/23 11:13 Pulse 88 05/28/23 11:13 Resp 19 H 05/28/23 11:13 BP 116/71 05/28/23 11:37 Pulse Ox 90 05/28/23 11:13 O2 Del Method Room Air 05/28/23 08:58 O2 Flow Rate 98 05/28/23 08:58 05/27/23 05/28/23 05/28/23 22:59 06:59 14:59 Intake Total 393.75 / 3150.00 1050 / 4200.00 0 / 0 Balance 393.75 / 2850.00 1050 / 3900.00 0 / 0 Weight last 48 hrs Weight 124 lb 12.8 oz Weight 124 lb 9.6 oz Data 05/28/23 05:03 05/28/23 05:03 Micro: Microbiology 05/25/23 17:51 Urine Culture - Final Urine,Clean Catch Klebsiella pneumoniae A&P Assessment and plan (1) Stricture of ascending colon: (2) Cancer, metastatic to liver: (3) Cancer, metastatic to lung: Plan Diagnostic laparoscopy, possible right hemicolectomy, possible ostomy The risks and benefits of the procedure, including but not limited to, bleeding, scar, numbness, pain, damage to surrounding structures, anastomotic leak, need for further surgery, were explained to the patient. She is understanding of the risks and wishes to proceed Attestations Medical Necessity Statement*: Patient is in require at least 2 more nights in the hospital for recovery and return of bowel function following laparoscopic surgery for colon cancer Coding Level of Care Code Acute Code for Chg Fwd Diagnoses Stricture of ascending colon K56.699 Cancer, metastatic to liver C78.7 Cancer, metastatic to lung C78.00
--- NOTE | 2023-05-28 12:19 | PC.NURSE ---
Patient was brought to pre prep are. Oxygen in place. Blood running without complication or s/s of reaction. NG tube clamped. Family at bedside
[2023-05-28] MEDS: piperacillin-tazobactam 3.375 GM in sodium chloride 0.9% (plus) 50 ML IV (12:43)
--- NOTE | 2023-05-28 12:57 | PM.PN ---
Subjective Subjective: Patient is n.p.o. No active emesis 250 mL noted in the container however NG has been clamped No abdominal pain Patient endorsing feeling better today Detailed family meeting conducted Going for diagnostic laparoscopy, Vitals/I&O/Wt Last Vital Signs Temp 98.8 F 05/28/23 11:25 Pulse 77 05/28/23 12:00 Resp 16 05/28/23 12:00 BP 118/74 05/28/23 12:00 Pulse Ox 99 05/28/23 11:55 O2 Del Method Nasal Cannula 05/28/23 12:00 O2 Flow Rate 2 05/28/23 12:00 05/27/23 05/28/23 05/28/23 22:59 06:59 14:59 Intake Total 393.75 / 3150.00 1050 / 4200.00 0 / 0 Balance 393.75 / 2850.00 1050 / 3900.00 0 / 0 Weight last 48 hrs Weight 56.608 kg Weight 56.518 kg Physical Exam Narrative: Malnourished, dehydrated laying supine Abdominal pain Active emesis NG in place GCS 15 S1, S2 Currently on room air Family at the bedside Data 05/28/23 05:03 05/28/23 05:03 Micro: Microbiology 05/25/23 17:51 Urine Culture - Final Urine,Clean Catch Klebsiella pneumoniae A&P Assessment and plan (1) Dyspnea on exertion: (2) Stricture of ascending colon: (3) Colonic obstruction: (4) Cancer, metastatic to liver: (5) Cancer, metastatic to lung: (6) Abdominal pain in female: Plan Patient is going for diagnostic laparoscopy with possible right hemicolectomy Further plan will be made after her procedure Since she is n.p.o. I will start her on D5 normal saline Pain is well managed at this point NG is clamped We can start DVT prophylaxis 4 hours after the procedure Full code Family meeting conducted today Her daughter's number is [phone] her name is Kim We will discuss with Dr. Crowe tomorrow Attestations Medical Necessity Statement*: Continue medical management Diagnoses Dyspnea on exertion R06.09 Stricture of ascending colon K56.699 Colonic obstruction K56.609 Cancer, metastatic to liver C78.7 Cancer, metastatic to lung C78.00 Abdominal pain in female R10.9
[2023-05-28] MEDS: lidocaine-epi 2% 20 mL INJ INJECTION (13:04)
--- NOTE | 2023-05-28 14:23 | P.OP_ITS ---
Operative Report Date of procedure: May 28, 2023 Surgeon: Beau Tony DO Brief History: This is a very pleasant 62-year-old female who was found to have an obstructing colon cancer in the proximal transverse colon. Due to the obstruction laparoscopic right hemicolectomy was indicated. The risks and benefits were explained and documented. Procedure: Patient was wheeled operative room placed on the OR table in the supine position. The abdomen was inspected prepped and draped in usual sterile fashion. General tracheal ovation was achieved by department anesthesia. Time was performed. All present were in agreement. After localization with 2% lidocaine with epinephrine a stab incision was made with 15 blade scalpel in the left upper quadrant and a Veress needle was used to create 15 mmHg intra- abdominal insufflation. A 12 mm trocar was then placed into the umbilicus. There was a small umbilical hernia. 5 mm trocars were then placed suprapubically and in the right lower quadrant. The right colon was identified and the right white line of Toldt was taken down bluntly and with Enseal. Hepatic flexure was taken down with Enseal. The gastrocolic ligament was taken down is much as possible up asked of the inked margin of the tumor. There was significant tumor burden invading to the duodenum and stomach. The decision was made to convert to an open procedure. The midline incision was then extended cephalad and caudad. Meticulous dissection was done to separate the colon from the duodenum and stomach. I had to cut through tumor burden in order to do this. Mesentery was taken down with Enseal. A [id number] functional end-to-end anastomosis was made with the terminal ileum and transverse colon using a INDIRA 100 mm blue load stapler x2. The bowel looks pink and healthy. The abdomen was inspected. Approximately 150 cc of blood loss was encountered. The midline incision was then closed with #1 PDS in a running fashion x2. The umbilical hernia was repaired with the closure primarily. Skin was closed with lisha. Patient tolerated procedure well.
--- NOTE | 2023-05-28 14:41 | ANE.PACU2 ---
Inpatient post-anesthesia follow up: Airway intact: No Vital signs: Temperature 98.8 F Pulse Rate 77 Respiratory Rate 16 Blood Pressure 118/74 Pulse Oximetry 99 Oxygen Delivery Me thod [Rate & Nasal Cannula Delivery Changed T o] Oxygen Delivery Me thod [ Room Air Current Rate & Del malka] Oxygen Delivery Me thod Nasal Cannula Oxygen Flow Rate [ Rate & 1 Delivery Changed T o] Oxygen Flow Rate [ Current Rate 98 & Delivery] Oxygen Flow Rate 2 Fraction of Inspir ed Oxygen Hydration adequate: Yes Nausea and vomiting: No Pain level: 1 Additional Comments: intubated and sedated
--- NOTE | 2023-05-28 14:44 | XRR_ITS ---
PROCEDURE INFORMATION: Exam: XR Chest Exam date and time: 05/28/2023 2:52 PM Age: 62 years old Clinical indication: Device placement; Ett placement (vent status); Additional info: Intubation TECHNIQUE: Imaging protocol: Radiologic exam of the chest. Views: 1 view. COMPARISON: 1. CR (CHEST, ) 05/25/2023 5:[address] chest w con* [id number] 05/25/2023 4:49 PM 3. CR XR chest 1V portable [id number] 05/25/2023 11:58 AM FINDINGS: Tubes, catheters and devices: Endotracheal tube terminates 4.5 cm above the patrick. Enteric tube terminates at the stomach. Lungs: Multiple bilateral pulmonary nodules greatest at the left lower lobe, which shows mildly increased opacification. Pleural spaces: Developed small left pleural effusion. No right pleural effusion. No pneumothorax. Heart/Mediastinum: Unremarkable. No cardiomegaly. Vasculature: Aortic arch atherosclerotic calcification. Bones/joints: Unremarkable. XR/XR chest 1V portable [id number] IMPRESSION: 1. Adequately positioned support structures. 2. Developed left pleural effusion and mildly increased left lower lung zone opacification may represent atelectasis or pneumonia.
--- NOTE | 2023-05-28 14:57 | PC.NURSE ---
Arrived from OR intubated
[2023-05-28] MEDS: lactated ringers 1,000 ML 125 ML IV (15:12)
[2023-05-28] MEDS: pantoprazole 40 mg SDV IVP (15:13)
[2023-05-28] MEDS: metroNIDAZOLE IV 500 MG/100 ML PREMIX 100 MG IV ×2 (15:13→21:31)
[2023-05-28] MEDS: propofol 1,000 MG/100 ML INJ 6.79 MG IV (15:26)
[2023-05-28 15:44] LABS: ABG PCO2 43.1 mmHg (35-45); ABG PH Result 7.42 (7.35-7.45); Arterial Blood Gas Hematocrit 26.8 % (37-47); Base Excess ABG 3.4 mmol/L (-2.0-2.0); Blood Gas Sample Type Arterial; Carboxyhemoglobin 2.1 %THgb (0.4-20.1); HCO3 ABG 28.2 mmol/L (22-26); HGB O2 Sat 98.2 % (95-100); Ionized Calcium Level - ABG 1.1 mmol/L (1.1-1.4); Methemoglobin 0.7 % (0.4-1.5); Oxygen Saturation ABG > 100.0; Total Hemoglobin 8.8 g/dL (12-16)
[2023-05-28 15:45] LABS: Alveolar-Arterial Oxygen Gradi 26.6 mmHg (5-10); Blood Gas Operator Identificat MONRO; Blood Gas Sample Site Radial, left; Oxygen Device VENT
[2023-05-28] MEDS: ipratropium-albuterol 3 mL Neb INHALATION (17:34)
--- NOTE | 2023-05-28 19:25 | PC.RESP ---
extubabted to 4lm nc without incident @1920
[2023-05-28] MEDS: HYDROmorphone 1 mg/mL INJ 1 mL 0.5 MG IVP (19:35)
[2023-05-28 19:55] LABS: Basophils # 0.1 10^3/uL (0.0-0.1); Basophils % 0.4 %; Eosinophils % 0.1 %; Hematocrit 36.7 % (36-47); Lymphocytes # 1.2 10^3/uL (0.8-4.8); Lymphocytes % 6.9 %; Mean Corpuscular HGB Conc 26.4 g/dL (30-55); Mean Corpuscular Hemoglobin 19.6 pg (27-33); Mean Corpuscular Volume 74.3 fl (85-98); Mean Platelet Volume 8.6 fL (7.4-10.4); Monocytes % 5.5 %; Neutrophils # 14.79 10^3/uL (1.8-7.7); Neutrophils % 86.3 %; Nucleated Red Blood Cells # 0.1 /100WBC; Nucleated Red Blood Cells % 0.4 %; Platelet Count 804 10^3/cmm (157-399); Red Blood Count 4.94 10^6/uL (3.85-5.65); Red Cell Distribution Width 27.8 % (12.1-15.1); White Blood Count 17.13 10^3/uL (3.29-11.43)
--- NOTE | 2023-05-28 20:00 | PC.NURSE ---
Addendum entered by Genna Emerson RN 05/28/23 21:01: witnessed propofol waste with ZOHREH Garzon Original Note: Extubation: Per shift report w/ ZOHREH Stephens Propofol was stopped on day-shift, MAR edited for arrival on shift to reflect this. Pt follows all commands. Ana RT, Dr. Pineda, and this RN @bedside, extubated @1920 to 4L NC. Verbal order from Dr. Pineda to discontinue PACU pain/nausea medications and start pt on 0.5mg Dilaudid Q2HR PRN and 2mg Morphine Q4HR PRN for pain. Verbal order to discontinue conflicting IV fluid orders and for IV fluids to be D5-LR @50ml/hr. 95ml Propofol wasted w/ Genna Emerson RN.
[2023-05-28] MEDS: dextrose 5%-lactated ringers 1,000 ML 50 ML IV (20:14)
[2023-05-28] MEDS: lanolin oint 7 gm 1 APPLIC TOPICAL (20:52)
[2023-05-28] MEDS: cefTRIAXone 1,000 MG in sodium chloride 0.9% (plus) 50 ML 100 MG IV (21:26)
[2023-05-28 21:52] LABS: Anion Gap 12.2 (5-19); Blood Urea Nitrogen 15 mg/dL (8-23); Calcium 7.9 mg/dL (8.5-10.5); Carbon Dioxide 30 mmol/L (22-29); Chloride 102 mmol/L (98-107); Glomerular Filtration Rate 63.2 mL/min (90-130); Glucose 105 mg/dL (65-115); Osmolality Calculated 293 mOsm/kg (285-295); Potassium 3.2 mmol/L (3.5-5.1); Sodium 141 mmol/L (136-145)
--- NOTE | 2023-05-28 22:24 | PC.NURSE ---
K+ 3.2: Dr. Cooley notified of low potassium @2203. New order for IV Potassium 40 mEq w/ lidocaine @2220.
[2023-05-29] VITALS (40 sets, daily range): BP systolic 128–157; BP diastolic 72–95; PULSE 83–102; RESP 15–27; TEMP 36.8–37; O2SAT 90–99
[2023-05-29] MEDS: HYDROmorphone 1 mg/mL INJ 1 mL 0.5 MG IVP ×2 (00:12→09:16)
[2023-05-29] MEDS: morphine 4 mg/mL SDV 1 mL 2 MG IVP ×4 (02:32→20:41)
[2023-05-29 04:17] LABS: Basophils % 0.2 %; Eosinophils % 0.3 %; Hematocrit 30.6 % (36-47); Lymphocytes # 1.3 10^3/uL (0.8-4.8); Lymphocytes % 9.9 %; Mean Corpuscular HGB Conc 28.4 g/dL (30-55); Mean Corpuscular Hemoglobin 19.8 pg (27-33); Mean Corpuscular Volume 69.5 fl (85-98); Mean Platelet Volume 8.8 fL (7.4-10.4); Monocytes # 0.8 10^3/uL (0.2-0.9); Monocytes % 6.6 %; Neutrophils % 82.2 %; Nucleated Red Blood Cells # 0.1 /100WBC; Nucleated Red Blood Cells % 0.5 %; Platelet Count 715 10^3/cmm (157-399); Red Cell Distribution Width 27.4 % (12.1-15.1); White Blood Count 12.67 10^3/uL (3.29-11.43)
[2023-05-29 04:44] LABS: Anion Gap 10.1 (5-19); Blood Urea Nitrogen 14 mg/dL (8-23); Calcium 7.9 mg/dL (8.5-10.5); Carbon Dioxide 30 mmol/L (22-29); Chloride 103 mmol/L (98-107); Glomerular Filtration Rate 63.2 mL/min (90-130); Glucose 114 mg/dL (65-115); Osmolality Calculated 289 mOsm/kg (285-295); Potassium 4.1 mmol/L (3.5-5.1); Sodium 139 mmol/L (136-145)
[2023-05-29] MEDS: metroNIDAZOLE IV 500 MG/100 ML PREMIX 100 MG IV ×2 (04:48→09:01)
--- NOTE | 2023-05-29 10:37 | PC.NUTR ---
Consult for PPN received. Recommend starting 4.25% AA, 5% dextrose @ 23 mls/hr and increasing 20 mls Q8H until goal rate of 83 mls/hr is reached. Also recommend standard electrolytes and MV 10 mls/day. Details in RD assessment.
[2023-05-29] MEDS: AA-Dex 4.25%-5% w/Lytes 1,000 ML with multivitamin inj 5 ML 23 ML IV (12:17)
--- NOTE | 2023-05-29 13:38 | PM.PN ---
Subjective Subjective: Patient was extubated yesterday around 7:15 PM to room air She did well Today I will start PPN she is still n.p.o. Pain well managed She can be transferred out of ICU to [facility] I will change antibiotics to Zosyn and discontinue ceftriaxone and metronidazole She is afebrile, leukocytosis improved Vitals/I&O/Wt Last Vital Signs Temp 98.3 F 05/29/23 04:30 Pulse 101 H 05/29/23 12:30 Resp 27 H 05/29/23 12:30 BP 156/93 05/29/23 12:30 Pulse Ox 93 05/29/23 12:30 O2 Del Method Nasal Cannula 05/29/23 09:18 O2 Flow Rate 2 05/29/23 09:18 FiO2 30 05/28/23 19:00 05/28/23 05/29/23 05/29/23 22:59 06:59 14:59 Intake Total 1177.333 / 1177.333 501 / 1678.333 Output Total 500 / 500 Balance 1177.333 / 1177.333 1 / 1178.333 Weight last 48 hrs Weight 56.608 kg Physical Exam Narrative: Abdominal dressing in place Pain well managed Awake and alert at the bedside Currently on 2 L of oxygen GCS 15 Awake and alert pleasant and cooperative S1, S2 Signs of dehydration present Gimenez catheter in place Nonfocal neuro exam NG in place Urinary Catheter Management: Gimenez: Cath Placed During This Visit: yes Reason for Continuing Indwelling Catheter: Accurate Measurement of Urinary Output in Critically Ill Patients Urinary Catheter Date of Insertion: 05/28/23 Urinary Catheter Time of Insertion: 12:20 Data 05/29/23 03:38 05/29/23 03:38 Micro: Microbiology 05/28/23 17:23 Gram Stain - Final Sputum - Endotracheal Tube Aspirate Sputum Culture - Preliminary 05/25/23 17:51 Urine Culture - Final Urine,Clean Catch Klebsiella pneumoniae A&P Assessment and plan (1) Dyspnea on exertion: (2) Microcytic anemia: (3) Stricture of ascending colon: (4) Colonic obstruction: (5) Cancer, metastatic to liver: (6) Cancer, metastatic to lung: (7) Abdominal pain in female: Plan Postop day 1 Status post open right hemicolectomy with end-to-end anastomosis and primaryUmbilical hernia repair No fever Was operatively patient was kept intubated for about extended 2 to 3 hours, she was extubated 7 PM on 05/28 Currently doing well on 2 L nasal cannula GCS 15 Change antibiotics to Zosyn She can be transferred to [facility] I spoke with Dr. Crowe who has recommended Port-A-Cath placement before her discharge from the hospital patient will follow up with Dr. Crowe outpatient Patient is burping a lot, and she will stay in place, no bowel movement or passage of flatus yet For pain management she will stay on opioids Signs of dehydration present, she has been n.p.o. for extended. Of time we will start PPN until she starts eating Avoid DVT prophylaxis as she will need Port-A-Cath placement I will keep her on D5 LR Full code Family at the bedside Spoke with Dr. Tony and Dr. Crowe, registered nurse hh case manager and ICU nurse updated Attestations Medical Necessity Statement*: Continue medical management Diagnoses Dyspnea on exertion R06.09 Microcytic anemia D50.9 Stricture of ascending colon K56.699 Colonic obstruction K56.609 Cancer, metastatic to liver C78.7 Cancer, metastatic to lung C78.00 Abdominal pain in female R10.9
[2023-05-29] MEDS: enoxaparin 40 mg/0.4 mL Syringe SUBCUT (14:51)
[2023-05-29] MEDS: dextrose 5%-lactated ringers 1,000 ML 50 ML IV (15:18)
[2023-05-29] MEDS: pantoprazole 40 mg SDV IVP (15:18)
--- NOTE | 2023-05-29 15:50 | P.PN_ITS ---
Subjective Subjective: Patient seen and examined she is doing well. Pain controlled Vitals/I&O/Wt Last Vital Signs Temp 98 F 05/30/23 12:00 Pulse 84 05/30/23 14:00 Resp 18 05/30/23 13:05 BP 138/75 05/30/23 12:00 Pulse Ox 98 05/30/23 12:00 O2 Del Method Nasal Cannula 05/30/23 11:32 O2 Flow Rate 2 05/30/23 11:32 FiO2 30 05/28/23 19:00 05/30/23 05/30/23 05/30/23 06:59 14:59 22:59 Intake Total 393.283 / 1125.717 9383.234 / 1410.234 Output Total 425 / 425 Balance 393.283 / 569.099 985.234 / 985.234 Physical Exam Narrative: Abdomen soft: Moderately distended, appropriately tender, dressings clean dry and intact Urinary Catheter Management: Gimenez: Cath Placed During This Visit: yes Reason for Continuing Indwelling Catheter: Acute Urinary Retention or Obstructio n Urinary Catheter Date of Insertion: 05/28/23 Urinary Catheter Time of Insertion: 12:20 Data 05/30/23 05:01 05/30/23 05:01 Micro: Microbiology 05/28/23 17:23 Gram Stain - Final Sputum - Endotracheal Tube Aspirate Sputum Culture - Final A&P Assessment and plan (1) Stricture of ascending colon: (2) Cancer, metastatic to liver: (3) Cancer, metastatic to lung: Plan Status post laparoscopic converted to open right hemicolectomy Maintain NG tube Pain control Await return of bowel function Medical management per hospitalist Attestations Medical Necessity Statement*: Per primary Coding Level of Care Code Acute Code for Chg Fwd Diagnoses Stricture of ascending colon K56.699 Cancer, metastatic to liver C78.7 Cancer, metastatic to lung C78.00
--- NOTE | 2023-05-29 19:38 | XRR_ITS ---
PROCEDURE INFORMATION: Exam: XR Chest Exam date and time: 05/29/2023 7:46 PM Age: 62 years old Clinical indication: Device placement; Picc; Additional info: Line placement TECHNIQUE: Imaging protocol: Radiologic exam of the chest. Views: 1 view. COMPARISON: 1. CR (CHEST, ) 05/28/2023 2:52 PM 2. CR (CHEST, ) 05/25/2023 5:[address] chest w con* [id number] 05/25/2023 4:49 PM FINDINGS: Tubes, catheters and devices: Interval right upper extremity PICC terminates at the SVC near the azygous confluence. Intervally removed endotracheal tube. Enteric tube terminates in the stomach. Lungs: Multiple bilateral pulmonary nodules greatest at the left lower lobe, which shows intervally stable mild increased opacification. No new or worsening consolidation. Pleural spaces: Small left pleural effusion. No right pleural effusion. No pneumothorax. Heart/Mediastinum: Unremarkable. No cardiomegaly. Vasculature: Aortic arch atherosclerotic calcification. Bones/joints: Unremarkable. XR/XR chest 1V portable [id number] IMPRESSION: 1. Support structures as above. 2. Intervally stable pulmonary nodules, left lower lobe opacification, and small left pleural effusion.
--- NOTE | 2023-05-29 20:03 | PC.NURSE ---
Consulted for placement of PICC for TPN and antibiotics. Staff requested triple lumen. Explained procedure and answered questions for pt and spouse. Consent signed. Assessed RUE and noted the basilic vein to 5.3 mm in diameter and free of evidence of thrombus or stenosis. Using US guidance, MST, and sterile technique the RUE basilic vein was accessed x 1 stick. Device fed easily. Device ports all aspirate and flush easily. Device secured and dressed. EBL 5ml. Pt tolerated well. Report to [facility]. Chest xray performed and demonstrated device in SVC, but pending physician reading at this time. Device Length 37 cm. RUE circumference at 10 cm above AC fossa is 25 cm.
[2023-05-29] MEDS: piperacillin-tazobactam 3.375 GM in sodium chloride 0.9% (plus) 50 ML IV (20:27)
[2023-05-29] MEDS: ondansetron 2 mg/ML SDV 2 mL 4 MG IVP (20:41)
[2023-05-30] VITALS (14 sets, daily range): BP systolic 132–155; BP diastolic 66–93; PULSE 84–100; RESP 16–18; TEMP 36.4–36.8; O2SAT 83–98
[2023-05-30] MEDS: piperacillin-tazobactam 3.375 GM in sodium chloride 0.9% (plus) 50 ML IV ×3 (04:00→19:57)
[2023-05-30] MEDS: ondansetron 2 mg/ML SDV 2 mL 4 MG IVP ×2 (05:07→21:18)
[2023-05-30 05:30] LABS: Basophils % 0.3 %; Eosinophils # 0.2 10^3/uL (0.0-0.8); Eosinophils % 1.4 %; Hematocrit 31.7 % (36-47); Lymphocytes # 1.1 10^3/uL (0.8-4.8); Lymphocytes % 6.8 %; Mean Corpuscular HGB Conc 28.1 g/dL (30-55); Mean Corpuscular Hemoglobin 19.6 pg (27-33); Mean Platelet Volume 8.8 fL (7.4-10.4); Monocytes % 6.3 %; Neutrophils % 84.4 %; Nucleated Red Blood Cells % 0 %; Platelet Count 635 10^3/cmm (157-399); Red Blood Count 4.53 10^6/uL (3.85-5.65); Red Cell Distribution Width 29.2 % (12.1-15.1); White Blood Count 15.99 10^3/uL (3.29-11.43)
[2023-05-30 05:59] LABS: Anion Gap 10.9 (5-19); Blood Urea Nitrogen 11 mg/dL (8-23); Calcium 8.3 mg/dL (8.5-10.5); Carbon Dioxide 30 mmol/L (22-29); Chloride 100 mmol/L (98-107); Glomerular Filtration Rate 124.6 mL/min (90-130); Glucose 131 mg/dL (65-115); Osmolality Calculated 285 mOsm/kg (285-295); Potassium 3.9 mmol/L (3.5-5.1); Sodium 137 mmol/L (136-145)
[2023-05-30] MEDS: lanolin oint 7 gm 1 APPLIC TOPICAL (06:08)
[2023-05-30] MEDS: morphine 4 mg/mL SDV 1 mL 2 MG IVP ×3 (08:56→20:51)
--- NOTE | 2023-05-30 11:19 | P.PN_ITS ---
Subjective Subjective: She had a bowel movement today Feeling better Pain 12/01 Dr. Tony recommended to remove NG tube start clear liquids Nurse updated Port-A-Cath placement tomorrow Most likely she will build to go home by tomorrow with home health outpatient follow-up with Dr. Crowe Vitals/I&O/Wt Last Vital Signs Temp 97.6 F 05/30/23 08:00 Pulse 92 05/30/23 08:00 Resp 18 05/30/23 08:56 BP 132/82 05/30/23 08:00 Pulse Ox 97 05/30/23 08:00 O2 Del Method Nasal Cannula 05/30/23 04:00 O2 Flow Rate 2 05/30/23 08:00 FiO2 30 05/28/23 19:00 05/29/23 05/30/23 05/30/23 22:59 06:59 14:59 Intake Total 975.816 / 975.816 393.283 / 1369.099 50 / 50 Output Total 800 / 800 425 / 425 Balance 175.816 / 175.816 393.283 / 569.099 -375 / -375 Physical Exam Narrative: Awake and alert GCS 15 Abdomen nondistended Patient feeling better Currently on room air PPN IV fluids running Gimenez catheter in place GCS 15 Nonfocal neuro exam Urinary Catheter Management: Gimenez: Cath Placed During This Visit: yes Reason for Continuing Indwelling Catheter: Acute Urinary Retention or Ob struction Urinary Catheter Date of Insertion: 05/28/23 Urinary Catheter Time of Insertion: 12:20 Data 05/30/23 05:01 05/30/23 05:01 Micro: Microbiology 05/28/23 17:23 Gram Stain - Final Sputum - Endotracheal Tube Aspirate Sputum Culture - Preliminary A&P Assessment and plan (1) Dyspnea on exertion: (2) Microcytic anemia: (3) Stricture of ascending colon: (4) Colonic obstruction: (5) Cancer, metastatic to liver: (6) Cancer, metastatic to lung: (7) GERD (gastroesophageal reflux disease): Qualifiers: Esophagitis presence: esophagitis presence not specified Qualified Code(s): K21.9 - Gastro-esophageal reflux disease without esophagitis Plan Patient had a bowel movement today I will remove NG tube start clear liquid diet No fever I will discontinue Zosyn by tomorrow Patient is going for Port-A-Cath placement tomorrow Plan is to discharge her home with home health services tomorrow Hold DVT prophylaxis today We can stop PPN tomorrow as well Discontinue IV fluids Full code Clear liquid diet Attestations Medical Necessity Statement*: Discharge tomorrow after Port-A-Cath placement Diagnoses Dyspnea on exertion R06.09 Microcytic anemia D50.9 Stricture of ascending colon K56.699 Colonic obstruction K56.609 Cancer, metastatic to liver C78.7 Cancer, metastatic to lung C78.00 GERD (gastroesophageal reflux disease) K21.9 Esophagitis presence: esophagitis presence not specified
[2023-05-30 12:27] LABS: Glucose Point of Care 109 mg/dL (70-110)
[2023-05-30] MEDS: AA-Dex 4.25%-5% w/Lytes 1,000 ML with multivitamin inj 5 ML 83 ML IV (13:44)
[2023-05-30] MEDS: pantoprazole 40 mg SDV IVP (15:34)
--- NOTE | 2023-05-30 15:52 | P.PN_ITS ---
Subjective Subjective: Patient had a bowel movement today and the NG tube was removed. She is tolerating liquid diet Vitals/I&O/Wt Last Vital Signs Temp 98 F 05/30/23 12:00 Pulse 84 05/30/23 14:00 Resp 18 05/30/23 13:05 BP 138/75 05/30/23 12:00 Pulse Ox 98 05/30/23 12:00 O2 Del Method Nasal Cannula 05/30/23 11:32 O2 Flow Rate 2 05/30/23 11:32 FiO2 30 05/28/23 19:00 05/30/23 05/30/23 05/30/23 06:59 14:59 22:59 Intake Total 393.283 / 1379.094 4382.234 / 1410.234 Output Total 425 / 425 Balance 393.283 / 569.099 985.234 / 985.234 Physical Exam Narrative: Abdomen soft: distended, appropriately tender, incision intact without erythema or exudate Urinary Catheter Management: Gimenez: Cath Placed During This Visit: yes Reason for Continuing Indwelling Catheter: Acute Urinary Retention or Obstruction Urinary Catheter Date of Insertion: 05/28/23 Urinary Catheter Time of Insertion: 12:20 Data 05/30/23 05:01 05/30/23 05:01 Micro: Microbiology 05/28/23 17:23 Gram Stain - Final Sputum - Endotracheal Tube Aspirate Sputum Culture - Final A&P Assessment and plan (1) Stricture of ascending colon: (2) Cancer, metastatic to liver: (3) Cancer, metastatic to lung: Plan Status post laparoscopic converted to open right hemicolectomy Maintain NG tube Pain control Full liquid diet Mediport placement tomorrow The risks and benefits of the procedure, including but not limited to, bleeding, infection, infection requiring Mediport removal antibiotic therapy and repeat vallecillo rgery, damage to surrounding structures, scar, numbness, pain, pneumothorax requiring thoracostomy tube, were explained to the patient. He/She is understanding of the risks and wishes to proceed. Medical management per hospitalist Attestations Medical Necessity Statement*: Per primary Coding Level of Care Code Acute Code for Chg Fwd Diagnoses Stricture of ascending colon K56.699 Cancer, metastatic to liver C78.7 Cancer, metastatic to lung C78.00
[2023-05-30 16:54] LABS: Glucose Point of Care 117 mg/dL (70-110)
[2023-05-30 20:59] LABS: Glucose Point of Care 120 mg/dL (70-110)
[2023-05-31] VITALS (17 sets, daily range): BP systolic 132–156; BP diastolic 78–104; PULSE 88–111; RESP 15–19; TEMP 36.1–36.8; O2SAT 91–98
--- NOTE | 2023-05-31 | SC_ITS ---
WS: [id number] C-arm fluoroscopy for infusion port placement, 05/31/2023 Clinical Data: MEDIPORT Comparison: Portable chest, 05/29/2023 Findings: Dr. Tony inserted the left infusion catheter which ends in the superior vena cava. Impression: Placement of left infusion catheter.
[2023-05-31] MEDS: AA-Dex 4.25%-5% w/Lytes 1,000 ML with multivitamin inj 5 ML 83 ML IV ×2 (01:25→18:37)
[2023-05-31] MEDS: ondansetron 2 mg/ML SDV 2 mL 4 MG IVP ×2 (02:19→16:34)
[2023-05-31] MEDS: piperacillin-tazobactam 3.375 GM in sodium chloride 0.9% (plus) 50 ML IV ×3 (05:04→21:28)
[2023-05-31 05:47] LABS: Basophils % 0.2 %; Eosinophils # 0.2 10^3/uL (0.0-0.8); Eosinophils % 0.8 %; Hematocrit 34.3 % (36-47); Lymphocytes # 1.4 10^3/uL (0.8-4.8); Lymphocytes % 7.2 %; Mean Corpuscular HGB Conc 27.7 g/dL (30-55); Mean Corpuscular Hemoglobin 19.9 pg (27-33); Mean Corpuscular Volume 71.8 fl (85-98); Monocytes # 1.2 10^3/uL (0.2-0.9); Monocytes % 6.5 %; Neutrophils # 15.92 10^3/uL (1.8-7.7); Neutrophils % 84.5 %; Nucleated Red Blood Cells % 0 %; Platelet Count 741 10^3/cmm (157-399); Red Blood Count 4.78 10^6/uL (3.85-5.65); Red Cell Distribution Width 30.7 % (12.1-15.1); White Blood Count 18.84 10^3/uL (3.29-11.43)
--- NOTE | 2023-05-31 06:52 | P.ANESUD_ITS ---
Pre-Anesthetic Update Pre-Anesthetic Assessment: Date of Surgery/Procedure: 05/31/23 Proposed Procedure: Operation Date: 05/27/23 12:00 Proposed Procedures p EGD(Not Applicable) - Beau Tony DO s Colonoscopy(Not Applicable) - Beau Tony DO Operation Date: 05/28/23 12:00 Proposed Procedures p Diagnostic Laparoscopy with possible right hemicolectomy, with possible ostomy(Not Applicable) - Beau Tony DO Operation Date: 05/31/23 07:00 Proposed Procedures p Portacath Placement(Not Applicable) - Beau Tony, DO Any changes to Pre-Anesthetic Assessment?: Yes Changes from Pre-Anesthetic Assessment: NG tube removed Last Intake: Intake Last Liquid Date 05/30/23 Last Liquid Time 23:30 Last Solid Date 05/26/23 Last Solid Time 17:00 Labs Last 48hrs: Short CBC 05/30/23 05/31/23 Range/Units 05:01 05:02 WBC 15.99 H 18.84 H (3.29-11.43) 10^ 3/uL Hgb 8.90 L 9.50 L (11.27-16.99) g/ dL Hct 31.7 L 34.3 L (36-47) % MCV 70.0 L 71.8 L (85-98) fl Plt Count 635 H 741 H (157-399) 10^3/c mm Neut % (Auto) 84.4 84.5 % Neut # (Auto) 13.50 H 15.92 H (1.8-7.7) 10^3/u L BMP 05/30/23 05/31/23 05:01 05:02 Sodium 137 Cancelled Potassium 3.9 Cancelled Chloride 100 Cancelled Carbon Dioxide 30 H Cancelled BUN 11 Cancelled Creatinine 0.5 Cancelled Glucose 131 H Cancelled Calcium 8.3 L Cancelled Vitals: Temperature 97.8 F 05/31/23 06:27 Temperature Source Temporal Artery S can 05/31/23 06:27 Pulse Rate 102 H 05/31/23 06:27 Pulse Rhythm Regular 05/30/23 08:00 Pulse Strength 3+ Normal 05/30/23 08:00 Respiratory Rate 18 05/31/23 06:27 Respiratory Effort Spontaneous, Non- Labored 05/30/23 20:51 Respiratory Depth Normal 05/30/23 20:51 Respiratory Patter n Normal 05/30/23 20:51 Blood Pressure 149/104 05/31/23 06:27 Blood Pressure Celia n 119 05/31/23 06:27 Blood Pressure Pos ition Semi Fowlers 05/28/23 11:13 Pulse Oximetry 97 05/31/23 06:27 Oxygen Delivery Me thod Nasal Cannula 05/31/23 06:27 Oxygen Flow Rate 2 05/31/23 06:27 Fraction of Inspir ed Oxygen 30 05/28/23 19:00 Sepsis Recent Feve r Within 48 Hours No 05/25/23 11:24 Exam: Pre-Anes Outpt Exam: alert, oriented x 3, clear to auscultation bilaterally and regular rate & rhythm Other Pertinent Information: Other Pertinent Information: [facility] [place] Studies: Echocardiogram 05/26/23
[2023-05-31 06:56] LABS: Anion Gap 14.5 (5-19); Blood Urea Nitrogen 16 mg/dL (8-23); Calcium 8.7 mg/dL (8.5-10.5); Carbon Dioxide 27 mmol/L (22-29); Chloride 97 mmol/L (98-107); Glomerular Filtration Rate 124.6 mL/min (90-130); Glucose 126 mg/dL (65-115); Osmolality Calculated 283 mOsm/kg (285-295); Potassium 3.5 mmol/L (3.5-5.1); Sodium 135 mmol/L (136-145)
--- NOTE | 2023-05-31 06:59 | PM.PN ---
Vitals/I&O/Wt Last Vital Signs Temp 97.8 F 05/31/23 06:27 Pulse 102 H 05/31/23 06:27 Resp 18 05/31/23 06:27 BP 149/104 05/31/23 06:27 Pulse Ox 97 05/31/23 06:27 O2 Del Method Nasal Cannula 05/31/23 06:27 O2 Flow Rate 2 05/31/23 06:27 FiO2 30 05/28/23 19:00 05/30/23 05/30/23 05/31/23 14:59 22:59 06:59 Intake Total 1410.234 / 1410.234 50 / 5003.630 3867.717 / 2479.951 Output Total 425 / 425 650 / 1075 200 / 1275 Balance 985.234 / 985.234 -600 / 385.234 819.717 / 1204.951 Physical Exam Urinary Catheter Management: Gimenez: Cath Placed During This Visit: yes Reason for Continuing Indwelling Catheter: Accurate Measurement of Urinary Output in Critically Ill Patients Urinary Catheter Date of Insertion: 05/28/23 Urinary Catheter Time of Insertion: 12:20 Data 05/31/23 05:02 05/31/23 06:32 Micro: Microbiology 05/28/23 17:23 Gram Stain - Final Sputum - Endotracheal Tube Aspirate Sputum Culture - Final A&P Assessment and plan (1) Stricture of ascending colon: (2) Cancer, metastatic to liver: (3) Cancer, metastatic to lung: Plan Status post laparoscopic converted to open right hemicolectomy Maintain NG tube Pain control Full liquid diet Mediport placement The risks and benefits of the procedure, including but not limited to, bleeding, infection, infection requiring Mediport removal antibiotic therapy and repeat surgery, damage to surrounding structures, scar, numbness, pain, pneumothorax requiring thoracostomy tube, were explained to the patient. He/She is understanding of the risks and wishes to proceed. Medical management per hospitalist Attestations Medical Necessity Statement*: PER PRIMARY Coding Level of Care Code Acute Code for Chg Fwd Diagnoses Stricture of ascending colon K56.699 Cancer, metastatic to liver C78.7 Cancer, metastatic to lung C78.00
[2023-05-31] MEDS: sodium chloride 0.9% 1,000 ML 30 ML (07:09)
[2023-05-31] MEDS: heparin, porcine 1,000 unit/mL INJ 10 mL 10000 UNIT INTRACATH (07:30)
--- NOTE | 2023-05-31 07:45 | PM.OP ---
Operative Report Date of procedure: May 31, 2023 Pre-op diagnosis: Metastatic colon cancer Post-op diagnosis: same Procedure done: Mediport placement Implants: PowerPort Specimens removed/disposition: None Surgeon: Beau Tony DO Anesthesia: General Estimated blood loss (mL): 5 Complications: None apparent Brief History: This very pleasant 62-year-old female was found to have colon cancer with mets to the liver and lungs. Insertion was indicated for chemotherapy access. The risk benefits were explained and documented. Procedure: They put another order I will do right now things the patient was taken to the operating room and placed supine on the operating room table. All bony prominences were padded. She was given IV sedation and monitored throughout the case by the anesthesia personnel. SCDs were placed and turned on. The arms were tucked to the side. Patient received Ancef 2 g preoperatively IV. The bilateral chest wall was prepped and draped in usual sterile fashion using chlorhexidine base prep. Sterile drapes were applied. We did procedure pause prior to beginning. An 18 gauge needle was placed in the left subclavian vein. Dark, nonpulsatile blood was aspirated. A guidewire was placed through the needle centrally toward the atrial/vena caval junction. Fluoroscopy visualized good placement. The needle was removed and the guidewire was clipped to the drape with a hemostat. Further local anesthetic was infiltrated in the soft tissues of the left chest wall and a #15 blade was used to make a horizontal skin incision. A subcutaneous Mediport pocket was created using Bovie cautery, dissecting down through the skin and subcutaneous tissues. Meticulous hemostasis was achieved. The Mediport was sutured in position using 3-0 vicryl suture x2 stitches. A #15 blade was used to make a small skin vance around the guidewire insertion area. The Mediport tubing was tunneled through the subcutaneous tissues up to the needle insertion location. A dilator with a peel-away sheath was placed over the guidewire and placed centrally. After measuring the Mediport tubing was cut to length so that the tip would end at the atrial/vena caval junction. The inner cannula and the guidewire were removed, leaving the dilator sheath in place. The Mediport was flushed. The tip of the catheter was inserted through the peel-away sheath and the peel-away sheath removed in the standard fashion. The Mediport was accessed with a straight Jimenez needle and dark, nonpulsatile blood was aspirated and flushed using heparinized saline to hep-lock the Mediport. Final fluoroscopy visualization showed no kink in the catheter and the tip of the Mediport tubing near the atrial/vena caval junction. Both skin incisions were thoroughly irrigated and suctioned dry. Meticulous hemostasis noted. The dermis was approximated with 3-0 Vicryl in an interrupted fashion. Skin was closed with Dermabond. Patient was awakened from anesthesia and transferred via her cart to the recovery room in stable condition. All needle, sponge, and instrument counts were correct per the operating personnel x2 counts.
[2023-05-31] MEDS: lidocaine-epi 2% 20 mL INJ 10 ML INJECTION (07:47)
--- NOTE | 2023-05-31 07:47 | XR_ITS ---
WS: [id number] Portable AP upright chest, 05/31/2023 Clinical Data: Postop Mediport Placement Comparison: Portable chest, 05/29/2023. Findings: There are multiple nodules in both lungs, more on the left than the right. The right PICC l ine, left infusion catheter and nasogastric tube are in good position. The heart size is normal. The aortic arch is tortuous. Impression: 1. Satisfactory placement of left infusion catheter. 2. No change in position of right PICC line and nasogastric tube. 3. Multiple pulmonary nodules unchanged.
--- NOTE | 2023-05-31 08:15 | ANE.PACU2 ---
Inpatient post-anesthesia follow up: Airway intact: Yes Vital signs: Temperature 97 F Pulse Rate 99 Respiratory Rate 18 Blood Pressure 132/89 Pulse Oximetry 95 Oxygen Delivery Me thod [Rate & Nasal Cannula Delivery Changed T o] Oxygen Delivery Me thod [ Room Air Current Rate & Del malka] Oxygen Delivery Me thod Nasal Cannula Oxygen Flow Rate [ Rate & 1 Delivery Changed T o] Oxygen Flow Rate [ Current Rate 2 & Delivery] Oxygen Flow Rate 3 Fraction of Inspir ed Oxygen 30 Hydration adequate: Yes Nausea and vomiting: No Pain level: 1 Mental status: Baseline Additional Comments: Patient and nursing staff informed of possible aspiration event, bilious in nature, no particulates. Will continue to monitor.
--- NOTE | 2023-05-31 10:01 | CT_ITS ---
WS: [id number] CT ABDOMEN PELVIS TECHNIQUE: Contrast-enhanced CT of the abdomen and pelvis with coronal and sagittal reformatted image s. CLINICAL INFORMATION: hemicolectomy COMPARISON: CT 05/25/2023 DLP: 483.[address] scans at [facility] use at least one of these dose optimization techniques: automated e xposure control; mA and/or kV adjustment per patient size (includes targeted exams where dose is matc hed to clinical indication); or iterative reconstruction. FINDINGS: Since the prior examination, interval postoperative changes hemicolectomy due to high-grade hepatic f lexure stricture. Primary anastomosis. Mild distention of the distal residual transverse colon and sp lenic flexure. Descending colon and sigmoid colon are decompressed. Sigmoid diverticulosis. Mild to moderate dilatation of proximal fluid-filled small bowel loops with air-fluid levels likely d ue to postoperative ileus. Anastomosis at the mid transverse colon appears widely patent. No evidence of leak or fluid collection. Postoperative fluid in the mesentery and pelvis. Gimenez catheter. Previously described metastatic pulmonary nodules in the LEFT lower lobe are similar in appearance. T iny pleural effusions. Compressive atelectasis LEFT lower lobe. Pleural fluid is new from previous. I nterstitial infiltrates in the RIGHT lower lobe recommend correlation for pneumonia. RIGHT middle lob e nodule measuring 7.6 mm not included on the previous examination also likely metastatic. Suspected metastatic large lobulated RIGHT hepatic lesion measuring 8 cm is stable. Enteric tube with tip in th e stomach. Diffuse fatty infiltration of the liver. Normal portal vein and splenic vein. Normal splee n. Few additional tiny hepatic lesions likely cysts. Normal caliber abdominal aorta. Stable previously described mesenteric metastatic implant near the pa ncreatic head measuring 2.5 x 3.5 cm. This is unchanged in appearance. Celiac and SMA are patent. Nor mal renal parenchymal enhancement. Small renal cysts. Some are too small to characterize. Stable RIGH T adrenal nodule. New filling defect compatible with thrombus in the infrarenal abdominal aorta just below the LINDSAY orig in which remains patent. Thrombus measures approximately 1.4 x 1.6 x 2.7 cm AP by transverse by crani ocaudal with approximately 60% narrowing at this level. Aorta remains patent. Distal aorta is patent at the bifurcation. Prior cholecystectomy. IMPRESSION: 1. New focal thrombus in the infrarenal abdominal aorta just below the takeoff of the LINDSAY which appe ars patent. Eccentric thrombus measures 1.4 x 1.6 x 2.7 cm new from previous. This results in approxi mately 50 to 60% narrowing of the aorta which remains patent. 2. Tiny bilateral pleural effusions with patchy infiltrates in the lung bases new from previous. Rec ommend correlation for pneumonia. 3. Postoperative changes RIGHT hemicolectomy new from previous. Anastomosis appears patent. 4. Persistent upstream proximal small bowel dilatation with air-fluid levels likely due to postopera tive ileus. 5. Postoperative fluid in the abdomen and pelvis. 6. Previously described metastatic disease unchanged in appearance including metastatic pulmonary no dules, RIGHT hepatic lesion, mesenteric implants, and RIGHT adrenal nodule. Notified Andi Pineda MD at 05/31/2023 11:31 AM.
[2023-05-31] MEDS: morphine 4 mg/mL SDV 1 mL 2 MG IVP ×3 (10:23→18:44)
[2023-05-31] MEDS: iohexol 350 mg/mL 500 mL Btl (per mL) IV (10:38)
[2023-05-31 11:50] LABS: Glucose Point of Care 124 mg/dL (70-110)
--- NOTE | 2023-05-31 11:55 | PM.PN ---
Subjective Subjective: Status post Port-A-Cath placement Worsening leukocytosis Patient had [address] scan abdomen pelvis showed atelectasis, pleural effusion, ileus, aortic thrombus I have notified nurse to start vancomycin and put patient on therapeutic Lovenox There is no obstruction of blood flow, there was no art line used during the procedure This most likely is cancer related Vitals/I&O/Wt Last Vital Signs Temp 98.3 F 05/31/23 09:05 Pulse 99 05/31/23 09:33 Resp 18 05/31/23 09:33 BP 156/96 05/31/23 09:05 Pulse Ox 95 05/31/23 09:33 O2 Del Method Nasal Cannula 05/31/23 09:33 O2 Flow Rate 3 05/31/23 09:33 FiO2 30 05/28/23 19:00 05/30/23 05/31/23 05/31/23 22:59 06:59 14:59 Intake Total 50 / 5103.195 7328.717 / 2479.951 0 / 0 Output Total 650 / 1075 200 / 1275 Balance -600 / 385.234 819.717 / 1204.951 - Physical Exam Narrative: Patient is laying supine NG in place with bile Abdominal lisha looking very in shape, no active signs of drainage, no dehiscence No abdominal pain Lower extremity mild edema GCS 15 Nonfocal neuro exam S1, S2 Urinary Catheter Management: Gimenez: Cath Placed During This Visit: yes Reason for Continuing Indwelling Catheter: Accurate Measurement of Urinary Output in Critically Ill Patients Urinary Catheter Date of Insertion: 05/28/23 Urinary Catheter Time of Insertion: 12:20 Data 05/31/23 05:02 05/31/23 06:32 Micro: Microbiology 05/28/23 17:23 Gram Stain - Final Sputum - Endotracheal Tube Aspirate Sputum Culture - Final A&P Assessment and plan (1) Dyspnea on exertion: (2) Microcytic anemia: (3) Stricture of ascending colon: (4) Colonic obstruction: (5) Cancer, metastatic to liver: (6) Cancer, metastatic to lung: (7) GERD (gastroesophageal reflux disease): Qualifiers: Esophagitis presence: esophagitis presence not specified Qualified Code(s): K21.9 - Gastro-esophageal reflux disease without esophagitis (8) Hospital-acquired pneumonia: (9) Aortic thrombus: (10) Postoperative ileus: Plan Hospital-acquired pneumonia: Patient is afebrile however leukocytosis worsened Pleural effusion with infiltrate, will add vancomycin to Zosyn Request blood and sputum culture Infrarenal abdominal aorta thrombus: We will put patient on therapeutic Lovenox no signs of obstruction Ileus: Postop: NG in place No passage of flatus or bowel movement in the last 30 hours Colon stricture status post hemicolectomy with end-to-end anastomosis No signs of leakage Dilated small bowel Port-A-Cath has been placed on 05/31 Full code N.p.o. Currently patient is on PPN She is in positive fluid balance we will give her Lasix Currently on therapeutic Lovenox She will follow up with Dr. Crowe when she is discharged, I am anticipating she will stay until this weekend Attestations Medical Necessity Statement*: Continue medical management Diagnoses Dyspnea on exertion R06.09 Microcytic anemia D50.9 Stricture of ascending colon K56.699 Colonic obstruction K56.609 Cancer, metastatic to liver C78.7 Cancer, metastatic to lung C78.00 GERD (gastroesophageal reflux disease) K21.9 Esophagitis presence: esophagitis presence not specified Hospital-acquired pneumonia J18.9; Y95 Aortic thrombus I74.10 Postoperative ileus K91.89; K56.7
[2023-05-31] MEDS: vancomycin 1,000 MG in sodium chloride 0.9% 250 ML 250 MG IV (12:56)
[2023-05-31] MEDS: FUROsemide 10 mg/mL SDV 2mL 20 MG IVP (12:58)
[2023-05-31] MEDS: enoxaparin 60 mg/0.6 mL Syringe SUBCUT (13:04)
[2023-05-31 16:29] LABS: Glucose Point of Care 130 mg/dL (70-110)
[2023-05-31] MEDS: pantoprazole 40 mg SDV IVP (17:16)
[2023-06-01] VITALS (11 sets, daily range): BP systolic 111–158; BP diastolic 74–90; PULSE 87–112; RESP 16–18; TEMP 36.4–37.5; O2SAT 92–98; BMI 23.0
[2023-06-01] MEDS: vancomycin 1,000 MG in sodium chloride 0.9% 250 ML 250 MG IV ×2 (01:29→11:57)
[2023-06-01] MEDS: enoxaparin 60 mg/0.6 mL Syringe SUBCUT ×2 (01:29→13:30)
[2023-06-01] MEDS: ondansetron 2 mg/ML SDV 2 mL 4 MG IVP ×3 (04:46→19:45)
[2023-06-01] MEDS: morphine 4 mg/mL SDV 1 mL 2 MG IVP ×2 (04:46→19:45)
[2023-06-01 05:22] LABS: Basophils % 0.2 %; Eosinophils # 0.1 10^3/uL (0.0-0.8); Eosinophils % 0.7 %; Hematocrit 29.9 % (36-47); Lymphocytes # 1.8 10^3/uL (0.8-4.8); Lymphocytes % 10.5 %; Mean Corpuscular HGB Conc 28.1 g/dL (30-55); Mean Platelet Volume 9.1 fL (7.4-10.4); Monocytes # 1.4 10^3/uL (0.2-0.9); Monocytes % 8.6 %; Neutrophils # 13.22 10^3/uL (1.8-7.7); Neutrophils % 79.3 %; Nucleated Red Blood Cells % 0 %; Platelet Count 559 10^3/cmm (157-399); Red Blood Count 4.21 10^6/uL (3.85-5.65); White Blood Count 16.68 10^3/uL (3.29-11.43)
[2023-06-01 05:38] LABS: Alanine Aminotransferase 10 U/L (0-33); Albumin Level 2.7 g/dL (3.5-5.2); Alkaline Phosphatase 76 U/L (35-105); Anion Gap 12.5 (5-19); Aspartate Amino Transferase 26 U/L (0-32); Blood Urea Nitrogen 19 mg/dL (8-23); Calcium 8.4 mg/dL (8.5-10.5); Carbon Dioxide 30 mmol/L (22-29); Chloride 97 mmol/L (98-107); Globulin 2.9 g/dL (1.3-4.6); Glomerular Filtration Rate 124.6 mL/min (90-130); Glucose 92 mg/dL (65-115); Osmolality Calculated 284 mOsm/kg (285-295); Potassium 3.5 mmol/L (3.5-5.1); Sodium 136 mmol/L (136-145); Total Bilirubin 0.3 mg/dL (0.15-1.2); Total Protein 5.6 g/dL (6.6-8.7)
[2023-06-01] MEDS: AA-Dex 4.25%-5% w/Lytes 1,000 ML with multivitamin inj 5 ML 83 ML IV (06:22)
[2023-06-01] MEDS: piperacillin-tazobactam 3.375 GM in sodium chloride 0.9% (plus) 50 ML IV ×3 (06:27→21:06)
[2023-06-01] MEDS: ipratropium-albuterol 3 mL Neb INHALATION ×2 (08:12→16:01)
--- NOTE | 2023-06-01 10:40 | PM.PN ---
Subjective Subjective: Leukocytosis trending down Patient is passing flatus Had a BM today Moderately differentiated adenocarcinoma it would be considered stage IV cancer, she will follow up with Dr. Crowe, family meeting conducted Dr. Tony was notified who recommended to remove NG tube and start patient on clear liquids Patient most likely will be able to go home over the weekend if she stays stable Detailed family meeting conducted I have told him about aortic thrombus, indication for antibiotics, stage IV cancer, Vitals/I&O/Wt Last Vital Signs Temp 98.7 F 06/01/23 04:00 Pulse 101 H 06/01/23 08:14 Resp 18 06/01/23 08:00 BP 154/90 06/01/23 07:19 Pulse Ox 98 06/01/23 08:00 O2 Del Method Nasal Cannula 06/01/23 08:00 O2 Flow Rate 3 06/01/23 08:00 FiO2 30 05/28/23 19:00 05/31/23 06/01/23 06/01/23 22:59 06:59 14:59 Intake Total 1055 / 1355 1395.25 / 2750.25 Output Total 600 / 610 600 / 1210 Balance 455 / 745 795.25 / 1540.25 Weight last 48 hrs Weight 62.737 kg Physical Exam Narrative: Patient is laying supine No active pain [place] showing no signs of drainage, surgical site is clean, granulation tissue noted GCS 15 Awake and alert NG connected to low intermittent suction Gimenez catheter with dark yellow-colored urine Lower extremity edema improved Patient is awake and alert Urinary Catheter Management: Gimenez: Cath Placed During This Visit: yes Reason for Continuing Indwelling Catheter: Other Urinary Catheter Date of Insertion: 05/28/23 Urinary Catheter Time of Insertion: 12:20 Data 06/01/23 04:33 06/01/23 04:33 Micro: Microbiology 05/31/23 13:10 Blood Culture - Preliminary Blood SPECIMEN COLLECTED 05/31/23 12:55 Blood Culture - Preliminary Blood SPECIMEN COLLECTED A&P Assessment and plan (1) Postoperative ileus: (2) Aortic thrombus: (3) Hospital-acquired pneumonia: (4) Dyspnea on exertion: (5) Colonic obstruction: (6) Cancer, metastatic to liver: (7) Cancer, metastatic to lung: (8) Colon adenocarcinoma: Plan Postop ileus: Improved patient had a bowel movement, passing flatus Remove NG tube Start clear liquids Hospital-acquired pneumonia I will continue vancomycin and Zosyn until the day of discharge she has been afebrile, leukocytosis trending down Adenocarcinoma moderately differentiated stage IV cancer with mets we will request tumor markers, she will follow with Dr. Crowe outpatient Status post Port-A-Cath placement Start clear liquids today Aortic thrombus: Start therapeutic Lovenox I will switch her to Eliquis at the time of discharge Full code Clear liquid diet Signs of dehydration improving Detailed family meeting conducted, notify Dr. Tony, updated nurse to remove NG tube Attestations Medical Necessity Statement*: Likely discharge over the weekend if able to tolerate diet Diagnoses Postoperative ileus K91.89; K56.7 Aortic thrombus I74.10 Hospital-acquired pneumonia J18.9; Y95 Dyspnea on exertion R06.09 Colonic obstruction K56.609 Cancer, metastatic to liver C78.7 Cancer, metastatic to lung C78.00 Colon adenocarcinoma C18.9
[2023-06-01 11:12] LABS: Tumor Marker Alpha Fetoprotein 2.5 ng/mL (0-8.3)
[2023-06-01 11:32] LABS: Cancer Antigen 19 9 6489 U/mL (0-35)
--- NOTE | 2023-06-01 11:50 | PM.PN ---
Subjective Subjective: Patient seen and examined. She looks much better today. She had a bowel movement and is passing flatus. She is only pulling about 700 cc on incentive spirometer Vitals/I&O/Wt Last Vital Signs Temp 97.6 F 06/01/23 11:14 Pulse 112 H 06/01/23 11:14 Resp 18 06/01/23 11:14 BP 158/80 06/01/23 11:14 Pulse Ox 96 06/01/23 11:14 O2 Del Method Nasal Cannula 06/01/23 11:14 O2 Flow Rate 3 06/01/23 08:00 FiO2 30 05/28/23 19:00 05/31/23 06/01/23 06/01/23 22:59 06:59 14:59 Intake Total 1055 / 1355 1395.25 / 2750.25 50 / 50 Output Total 600 / 610 600 / 1210 Balance 455 / 745 795.25 / 1540.25 50 / 50 Weight last 48 hrs Weight 138 lb 5 oz Physical Exam Narrative: Abdomen soft: distended, appropriately tender, incision intact without erythema or exudate Urinary Catheter Management: Gimenez: Cath Placed During This Visit: yes Reason for Continuing Indwelling Catheter: Other Urinary Catheter Date of Insertion: 05/28/23 Urinary Catheter Time of Insertion: 12:20 Data 06/01/23 04:33 06/01/23 04:33 Micro: Microbiology 05/31/23 13:10 Blood Culture - Preliminary Blood SPECIMEN COLLECTED 05/31/23 12:55 Blood Culture - Preliminary Blood SPECIMEN COLLECTED A&P Assessment and plan (1) Stricture of ascending colon: (2) Cancer, metastatic to liver: (3) Cancer, metastatic to lung: Plan Status post laparoscopic converted to open right hemicolectomy Status post Mediport placement IS use Pain control clear liquid diet Ambulate Medical management per hospitalist Attestations Medical Necessity Statement*: Per primary Coding Level of Care Code Acute Code for g Fwd Diagnoses Stricture of ascending colon K56.699 Cancer, metastatic to liver C78.7 Cancer, metastatic to lung C78.00
[2023-06-01] MEDS: AA-Dex 4.25%-5% w/Lytes 1,000 ML with multivitamin inj 5 ML 50 ML IV (18:04)
[2023-06-02] VITALS (7 sets, daily range): BP systolic 119–138; BP diastolic 73–80; PULSE 82–89; RESP 16–20; TEMP 36.6–36.8; O2SAT 85–96
[2023-06-02 00:19] LABS: Vancomycin Trough 10.1 ug/mL (10-15)
[2023-06-02] MEDS: enoxaparin 60 mg/0.6 mL Syringe SUBCUT (01:16)
[2023-06-02] MEDS: vancomycin 1,000 MG in sodium chloride 0.9% 250 ML 250 MG IV (01:17)
[2023-06-02 05:10] LABS: Basophils # 0.1 10^3/uL (0.0-0.1); Basophils % 0.4 %; Eosinophils # 0.4 10^3/uL (0.0-0.8); Eosinophils % 2.6 %; Hematocrit 27.8 % (36-47); Lymphocytes # 1.4 10^3/uL (0.8-4.8); Lymphocytes % 8.9 %; Mean Corpuscular HGB Conc 28.4 g/dL (30-55); Mean Corpuscular Hemoglobin 19.9 pg (27-33); Mean Platelet Volume 9.2 fL (7.4-10.4); Monocytes # 1.2 10^3/uL (0.2-0.9); Monocytes % 7.6 %; Neutrophils # 12.95 10^3/uL (1.8-7.7); Neutrophils % 79.6 %; Nucleated Red Blood Cells % 0 %; Platelet Count 468 10^3/cmm (157-399); Red Blood Count 3.97 10^6/uL (3.85-5.65); Red Cell Distribution Width 31.3 % (12.1-15.1); White Blood Count 16.26 10^3/uL (3.29-11.43)
[2023-06-02] MEDS: piperacillin-tazobactam 3.375 GM in sodium chloride 0.9% (plus) 50 ML IV (05:28)
[2023-06-02 06:16] LABS: Anion Gap 11.6 (5-19); Blood Urea Nitrogen 16 mg/dL (8-23); Calcium 8.4 mg/dL (8.5-10.5); Carbon Dioxide 29 mmol/L (22-29); Chloride 97 mmol/L (98-107); Glomerular Filtration Rate 84.5 mL/min (90-130); Glucose 97 mg/dL (65-115); Osmolality Calculated 279 mOsm/kg (285-295); Potassium 3.6 mmol/L (3.5-5.1); Sodium 134 mmol/L (136-145)
[2023-06-02] MEDS: acetaminophen 325 mg Tablet 650 MG PO (09:30)
--- NOTE | 2023-06-02 10:48 | PM.PN ---
Subjective Subjective: Patient seen and examined. Pain well controlled today. Denies any nausea or vomiting. Having multiple bowel movements and passing flatus well tolerating liquid diet. Now pulling 1000 cc on incentive spirometer up from 700 yesterday Vitals/I&O/Wt Last Vital Signs Temp 98.2 F 06/02/23 07:59 Pulse 88 06/02/23 10:08 Resp 20 H 06/02/23 10:08 BP 138/77 06/02/23 07:59 Pulse Ox 96 06/02/23 10:08 O2 Del Method Nasal Cannula 06/02/23 10:08 O2 Flow Rate 2 06/02/23 10:08 FiO2 30 05/28/23 19:00 06/01/23 06/02/23 06/02/23 22:59 06:59 14:59 Intake Total 1328.850 / 1988.850 300 / 2288.850 50 / 50 Output Total 650 / 650 1350 / 2000 Balance 678.850 / 1338.850 -1050 / 288.850 50 / 50 Weight last 48 hrs Weight 140 lb 6 oz Weight 138 lb 5 oz Physical Exam Narrative: Abdomen soft: distended, appropriately tender, incision intact without erythema or exudate Urinary Catheter Management: Gimenez: Cath Placed During This Visit: yes Reason for Continuing Indwelling Catheter: Other Urinary Catheter Date of Insertion: 05/28/23 Urinary Catheter Time of Insertion: 12:20 Data 06/02/23 04:30 06/02/23 05:30 Micro: Microbiology 05/31/23 13:10 Blood Culture - Preliminary Blood NEGATIVE TO DATE 05/31/23 12:55 Blood Culture - Preliminary Blood NEGATIVE TO DATE A&P Assessment and plan (1) Stricture of ascending colon: (2) Cancer, metastatic to liver: (3) Cancer, metastatic to lung: Plan Status post laparoscopic converted to open right hemicolectomy Status post Mediport placement IS use No lifting pushing pulling over 15 pounds for 6 weeks after surgery Do not soak incisions underwater until lisha removed Follow-up in my office 12 to 14 days after surgery for staple removal Surgically stable for discharge Medical management per hospitalist Attestations Medical Necessity Statement*: Per primary Coding Level of Care Code Acute Code for Chg Fwd Diagnoses Stricture of ascending colon K56.699 Cancer, metastatic to liver C78.7 Cancer, metastatic to lung C78.00
--- NOTE | 2023-06-02 12:06 | P.DS_ITS ---
Discharge Providers Date of Admission: 05/25/23 13:44 Date of Discharge: June 02, 2023 Attending Provider at Admission: Pipe Vivsa Attending Provider at Discharge: Andi Pineda MD Primary Care Provider: Leah Campos APN Diagnoses at Discharge Discharge Diagnosis (1) Stricture of ascending colon: Status: Acute (2) Cancer, metastatic to liver: Status: Acute (3) Cancer, metastatic to lung: Status: Acute Reason for Visit Reason for Visit: N/V stomach pain, weakness Hospital Course Hospital Course 62-year-old female who was admitted to the hospital for chief complaint of small obstruction related to colon mass, CT abdomen pelvis showed metastatic lesions, Dr. Tony was consulted, patient went for laparoscopic exploration which was converted to open laparotomy with right hemicolectomy, Dr. Crowe was notified who requested Port-A-Cath placement for discharge, patient remained afebrile, her leukocytosis worsened after Port-A-Cath placement, CT abdomen pelvis was requested which showed possible pneumonia with pleural effusion and no complications around surgical site, she did develop aortic thrombus for which she was put on anticoagulating agent likely cancer related no art line was placed in the OR. Patient is tolerating diet, NG tube has been removed, she is passing flatus, getting bowel movement on daily basis, pain is well managed Patient has multiple abdominal lisha for which she will follow-up with Dr. Tony within 2 weeks For hospital-acquired pneumonia she will get antibiotics 7-day regimen She will also need home oxygen evaluation before discharge She will receive Eliquis for her aortic thrombus Follow up with Dr. Crowe to start chemo Biopsy showing moderately differentiated adenocarcinoma considering metastatic lesion it is stage IV Patient does not have insurance currently, could not qualify for home health, did touch base with case monitor and that For UTI she will be covered with Augmentin, urine culture positive for Klebsiella Physical Exam Narrative: Patient is laying supine No active pain [place] showing no signs of drainage, surgical site is clean, granulation tissue noted GCS 15 Awake and alert Doing well on room air, abdomen soft Gimenez catheter with dark yellow-colored urine Lower extremity edema improved Patient is awake and alert Urinary Catheter Management: Gimenez: Cath Placed During This Visit: yes Reason for Continuing Indwelling Catheter: Other Urinary Catheter Date of Insertion: 05/28/23 Urinary Catheter Time of Insertion: 12:20 Discharge Data Studies Completed and Pending Completed Studies During Hospitalization Category Date Time Status CT abdomen pelvis w con* [id number] Routine Cat Scan 05/31/23 10:[address] abdomen pelvis w con* [id number] Stat Cat Scan 05/25/23 11:[address] chest w con* [id number] Routine Cat Scan 05/25/23 16:35 Completed CXRP [XR chest 1V portable [id number]] Routine Exams 05/31/23 07:47 Completed CXRP [XR chest 1V portable [id number]] Stat Exams 05/25/23 17:18 Completed CXRP [XR chest 1V portable [id number]] Stat Exams 05/28/23 14:44 Completed XR chest 1V portable [id number] Stat Exams 05/25/23 11:49 Completed XR chest 1V portable [id number] Stat Exams 05/29/23 19:38 Completed Pathology: Surgical [PTH] Routine Pth 05/27/23 13:15 Completed CV. echo complete* [id number] Routine Ultrasound 05/26/23 06:00 Completed Pending at discharge Category Date Time Status Blood Culture Stat Lab 05/31/23 13:10 Results Sputum Culture Routine Lab 05/31/23 13:38 Received Pathology: Surgical [PTH] Routine Pth 05/29/23 07:37 Received Radiology Impressions Chest CT 05/25/23 16:35 IMPRESSION: 1. Multifocal metastatic disease throughout both lung mcclure measuring up to 3.8 cm in the left lower lobe. 2. Right hilar 2.7 cm irregular enlarged lymph node reflecting metastatic disease. 3. Emphysematous changes. 4. L1 vertebral body superior endplate compression fracture without retropulsion of bony fragments. 5. T8 vertebral body benign hemangioma. 6. Small hiatal hernia. 7. Coronary artery atherosclerotic calcifications. 8. Right hepatic lobe 9.5 cm heterogeneous mass likely reflecting malignancy. Laboratory Results WBC 16.26 10^3/uL (3.29-11.43) H 06/02/23 04:30 RBC 3.97 10^6/uL (3.85-5.65) 06/02/23 04:30 Hgb 7.90 g/dL (11.27-16.99) L 06/02/23 04:30 Hct 27.8 % (36-47) L 06/02/23 04:30 MCV 70.0 fl (85-98) L 06/02/23 04:30 MCH 19.9 pg (27-33) L 06/02/23 04:30 MCHC 28.4 g/dL (30-55) L 06/02/23 04:30 RDW 31.3 % (12.1-15.1) H 06/02/23 04:30 Plt Count 468 10^3/cmm (157-399) H 06/02/23 04:30 MPV 9.2 fL (7.4-10.4) 06/02/23 04:30 Neut % (Auto) 79.6 % 06/02/23 04:30 Lymph % (Auto) 8.9 % 06/02/23 04:30 [place] % (Auto) 7.6 % 06/02/23 04:30 Eos % (Auto) 2.6 % 06/02/23 04:30 Baso % (Auto) 0.4 % 06/02/23 04:30 Neut # (Auto) 12.95 10^3/uL (1.8-7.7) H 06/02/23 04:30 Lymph # (Auto) 1.4 10^3/uL (0.8-4.8) 06/02/23 04:30 [place] # (Auto) 1.2 10^3/uL (0.2-0.9) H 06/02/23 04:30 Eos # (Auto) 0.4 10^3/uL (0.0-0.8) 06/02/23 04:30 Baso # (Auto) 0.1 10^3/uL (0.0-0.1) 06/02/23 04:30 Nucleated RBC % (auto) 0 % 06/02/23 04:30 Nucleated RBCs # 0.0 /100WBC 06/02/23 04:30 Peripher Smr Path Cons Sent for review 05/25/23 11:55 Specimen Type Arterial 05/28/23 15:32 Sample Site Radial, left 05/28/23 15:32 ABG pH 7.42 (7.35-7.45) 05/28/23 15:32 ABG pCO2 43.1 mmHg (35-45) 05/28/23 15:32 ABG pO2 235.0 mmHg (80.0-100.0) H 05/28/23 15:32 ABG HCO3 28.2 mmol/L (22-26) H 05/28/23 15:32 ABG O2 Saturation > 100.0 05/28/23 15:32 ABG Base Excess 3.4 mmol/L (-2.0-2.0) H 05/28/23 15:32 Naresh Test N/a 05/28/23 15:32 A-a O2 Gradient 26.6 mmHg (5-10) H 05/28/23 15:32 Hematocrit 26.8 % (37-47) L 05/28/23 15:32 Hgb O2 Saturation 98.2 % (95-100) 05/28/23 15:32 Carboxyhemoglobin 2.1 %THgb (0.4-20.1) 05/28/23 15:32 Methemoglobin 0.7 % (0.4-1.5) 05/28/23 15:32 Total Hemoglobin 8.8 g/dL (12-16) L 05/28/23 15:32 Sodium 140.0 mmol/L (131-143) 05/28/23 15:32 Potassium 3.0 mmol/L (3.5-5.0) L 05/28/23 15:32 Glucose 73.0 mg/dL (70-115) 05/28/23 15:32 Ionized Calcium 1.1 mmol/L (1.1-1.4) 05/28/23 15:32 O2 Delivery Device Vent 05/28/23 15:32 FiO2 70.0 % 05/28/23 15:32 Tidal Volume 0.40 05/28/23 15:32 PEEP 5.0 cmH20 05/28/23 15:32 Venue Attendant ID [place] 05/28/23 15:32 Sodium 134 mmol/L (136-145) L 06/02/23 05:30 Potassium 3.6 mmol/L (3.5-5.1) 06/02/23 05:30 Chloride 97 mmol/L (98-107) L 06/02/23 05:30 Carbon Dioxide 29 mmol/L (22-29) 06/02/23 05:30 Anion Gap 11.6 (5-19) 06/02/23 05:30 BUN 16 mg/dL (8-23) 06/02/23 05:30 Creatinine 0.7 mg/dL (0.5-0.9) 06/02/23 05:30 GFR Calculation 84.5 mL/min (90-130) L 06/02/23 05:30 Glucose 97 mg/dL (65-115) 06/02/23 05:30 POC Glucose 130 mg/dL (70-110) H 05/31/23 16:26 Calculated Osmolality 279 mOsm/kg (285-295) L 06/02/23 05:30 Calcium 8.4 mg/dL (8.5-10.5) L 06/02/23 05:30 Magnesium 2.5 mg/dL (1.7-2.3) H 05/26/23 05:00 Iron 12 ug/dL (37-145) L 05/25/23 11:55 TIBC 393 mcg/dl 05/25/23 11:55 % Saturation 3.0 % (20-50) L 05/25/23 11:55 Unsat Iron Binding 381 ug/dL (112-347) H 05/25/23 11:55 Ferritin 42 ng/mL (15-150) 05/25/23 11:55 Total Bilirubin 0.3 mg/dL (0.15-1.2) 06/01/23 04:33 AST 26 U/L (0-32) 06/01/23 04:33 ALT 10 U/L (0-33) 06/01/23 04:33 Alkaline Phosphatase 76 U/L (35-105) 06/01/23 04:33 Total Protein 5.6 g/dL (6.6-8.7) L 06/01/23 04:33 Albumin 2.7 g/dL (3.5-5.2) L 06/01/23 04:33 Globulin 2.9 g/dL (1.3-4.6) 06/01/23 04:33 Lipase 23 U/L (13-60) 05/25/23 11:55 Tumor Marker AFP 2.5 ng/mL (0-8.3) 06/01/23 04:33 Carcinoembryonic Ag 2407.0 ng/mL (0.0-4.7) H 06/01/23 04:33 CA 19-9 Antigen 6489 U/mL (0-35) H 06/01/23 04:33 Urine Color Yellow (Yellow) 05/25/23 17:51 Urine Appearance Clear (CLEAR) 05/25/23 17:51 Urine pH 6.5 (5-7) 05/25/23 17:51 Ur Specific [place] 1.010 (1.005-1.030) 05/25/23 17:51 Urine Protein 1+ (Negative) H 05/25/23 17:51 Urine Glucose (UA) Norm (Normal) 05/25/23 17:51 Urine Ketones 1+ (Negative) H 05/25/23 17:51 Urine Blood 2+ (Negative) H 05/25/23 17:51 Urine Nitrate Positive (Negative) H 05/25/23 17:51 Urine Bilirubin 1+ (Negative) H 05/25/23 17:51 Urine Urobilinogen Norm mg/dL (Negative) 05/25/23 17:51 Ur Leukocyte Esterase Trace (Negative) H 05/25/23 17:51 Urine RBC 0-4 /hpf (0-2) H 05/25/23 13:35 Urine WBC 0-4 /hpf (0-5) H 05/25/23 13:35 Ur Squamous Epith Cells 40-55 /hpf (0-5) H 05/25/23 13:35 Amorphous Sediment Not Reportable 05/25/23 13:35 Urine Bacteria None /hpf (NONE) 05/25/23 13:35 Vancomycin Trough 10.1 ug/mL (10-15) 06/01/23 23:35 Blood Type O Positive 05/25/23 12:46 Rho(D) Type Positive 05/25/23 12:46 Antibody Screen Negative 05/25/23 12:46 Crossmatch See Detail 05/25/23 12:46 Vitals Last Vital Signs Temp 98.0 F 06/02/23 11:28 Pulse 82 06/02/23 11:28 Resp 19 H 06/02/23 11:28 BP 128/80 06/02/23 11:28 Pulse Ox 96 06/02/23 11:28 O2 Del Method Nasal Cannula 06/02/23 11:28 O2 Flow Rate 2 06/02/23 10:08 FiO2 30 05/28/23 19:00 Discharge Plan Discharge Patient Disposition: Home Condition: Stable Prescriptions: New oxycodone 5 mg tablet 5 mg PO Q8H PRN (Reason: pain) Qty: 20 0RF amoxicillin-pot clavulanate 875-125 mg tablet 1 tab PO BID Qty: 14 0RF Eliquis 5 mg tablet 5 mg PO BID Qty: 120 3RF ondansetron HCl 4 mg tablet 4 mg PO DAILY PRN (Reason: nausea and vomiting) 5 Days Qty: 10 0RF furosemide [Lasix] 20 mg tablet 20 mg PO DAILY Qty: 5 0RF potassium chloride 10 mEq tablet extended release 10 meq PO DAILY Qty: 7 0RF doxycycline hyclate 100 mg tablet 100 mg PO BID 7 Days Qty: 14 0RF sennosides-docusate sodium [Senna-S] 8.6-50 mg tablet 1 tab-cap PO BID PRN (Reason: constipation) Qty: 20 0RF Continued ondansetron 4 mg tablet,disintegrating 4 mg PO Q8H PRN (Reason: nausea and vomiting) Qty: 30 0RF pantoprazole [Protonix] 40 mg tablet,delayed release (DR/EC) 40 mg PO BID 42 Days Qty: 84 1RF Changed acetaminophen 500 mg Tablet 500 mg PO Q6H PRN (Reason: Pain) Qty: 90 0RF Discharge Orders: Discharge Order (Routine); Ordered 06/02/23 Ordered By: Andi Pineda Referrals: Baeu Tony DO [Physician] - 1 week (Follow up on 06/12/2023) Leah Campos FNP [Primary Care Provider] - Royce Crowe MD [Hospitalist] - 1 week Patient Instructions: Opioid Safety Activity Restrictions/Additional Instructions: Take Eliquis 10 mg twice daily for 7 days and then 5 mg twice daily for aortic thrombus For your UTI which is with Klebsiella please take Augmentin For your pneumonia you will take doxycycline along Augmentin Please follow-up with Dr. Crowe and Dr. Tony, call Dr. Crowe's office to make an appointment Discharge Attestations Time Spent in Discharge Care*: greater than 30 min Quality Metrics Clinical Quality Measures [ No reported AMI, CVA or VTE this stay] Coding Level of Care Code Acute Code for Chg Fwd Diagnoses Stricture of ascending colon K56.699 Cancer, metastatic to liver C78.7 Cancer, metastatic to lung C78.00
[2023-06-02] MEDS: ondansetron 2 mg/ML SDV 2 mL 4 MG IVP (12:38)
--- NOTE | 2023-06-02 15:20 | PC.NURSE ---
This nurse discontinued patient's PICC line before discharging. Catheter intact.
[2023-06-26 07:46] LABS: Mismatch Repari Proteins-IHC See Report
== END 2023-06-02 14:59 | disposition home or self-care (01) | DRG 329 ==
LOC: ER 11:51 → MEDSURG 14:06 → ICU 05-28 13:05 → MEDSURG 05-29 15:24
PROVIDERS: Surgery; Admitting Provider Internal Medicine; Emergency Provider Family Medicine; PCP Nurse Practitioner; Visit Provider Internal Medicine
PROC: 0DJ08ZZ Inspection of Upper Intestinal Tract, Via Natural or Artificial Opening Endoscopic (ICD-10-PCS; CPT 43235; principal; 2023-05-27 12:00)
PROC: 0DJD8ZZ Inspection of Lower Intestinal Tract, Via Natural or Artificial Opening Endoscopic (ICD-10-PCS; CPT 45378; 2023-05-27 12:00)
PROC: 0DTF0ZZ Resection of Right Large Intestine, Open Approach (ICD-10-PCS; CPT 49320; principal; 2023-05-28 11:40)
PROC: 0DTF0ZZ Resection of Right Large Intestine, Open Approach (ICD-10-PCS; 2023-05-28 11:40)
PROC: 0DTF0ZZ Resection of Right Large Intestine, Open Approach (ICD-10-PCS; 2023-05-28 11:40)
PROC: 0JH60WZ Insertion of Totally Implantable Vascular Access Device into Chest Subcutaneous Tissue and Fascia, Open Approach (ICD-10-PCS; principal; 2023-05-31 07:00)
DX: C18.3 Malignant neoplasm of hepatic flexure (principal); J18.9 Pneumonia, unspecified organism; C78.7 Secondary malignant neoplasm of liver and intrahepatic bile duct; C78.02 Secondary malignant neoplasm of left lung; C78.01 Secondary malignant neoplasm of right lung; E46 Unspecified protein-calorie malnutrition; I74.10 Embolism and thrombosis of unspecified parts of aorta; N39.0 Urinary tract infection, site not specified; K91.89 Other postprocedural complications and disorders of digestive system; K56.7 Ileus, unspecified; Z68.23 Body mass index [BMI] 23.0-23.9, adult; B96.1 Klebsiella pneumoniae [K. pneumoniae] as the cause of diseases classified elsewhere; K21.9 Gastro-esophageal reflux disease without esophagitis; M81.0 Age-related osteoporosis without current pathological fracture; E55.9 Vitamin D deficiency, unspecified; Z87.891 Personal history of nicotine dependence; D75.839 Thrombocytosis, unspecified; D50.9 Iron deficiency anemia, unspecified; K42.9 Umbilical hernia without obstruction or gangrene; E87.6 Hypokalemia; E86.0 Dehydration; Y83.2 Surgical operation with anastomosis, bypass or graft as the cause of abnormal reaction of the patient, or of later complication, without mention of misadventure at the time of the procedure; Y95 Nosocomial condition
CPT/HCPCS: 36415; 36416; 36430; 36573; 36592; 36600; 51702; 71045; 71260; 74177; 77001; 80048; 80051; 80053; 80202; 80503; 81001; 81003; 82105; 82330; 82378; 82728; 82805; 82962; 83540; 83550; 83690; 83735; 85025; 86301; 86850; 86900; 86920; 87040; 87070; 87077; 87086; 87186; 87205; 88305; 88309; 88341; 88342; 93005; 93306; 94002; 94640; 94760; 94799; 96361; 96372; 96374; 96375; 96376; 99285; C1751; C1788; C9113; J0330; J0696; J1170; J1644; J1650; J1756; J1940; J2270; J2371; J2405; J2543; J2704; J3010; J3370; J3480; J3490; J7030; J7042; J7050; J7120; J7121; P9016; Q9967

== ENCOUNTER 2023-06-16 11:37 | Emergency (ER) | payer MEDICAID, SELFPAY ==
[2023-06-16] VITALS (8 sets, daily range): BP systolic 118–158; BP diastolic 81–97; PULSE 87–96; RESP 17; TEMP 36.4; O2SAT 92–95; BMI 17.8
--- NOTE | 2023-06-16 12:20 | XRR_ITS ---
PROCEDURE INFORMATION: Exam: XR Chest Exam date and time: 06/16/2023 12:38 PM Age: 62 years old Clinical indication: Other: Hemoptysis; Additional info: Coughing up blood TECHNIQUE: Imaging protocol: Radiologic exam of the chest. Views: 1 view. COMPARISON: CR XR chest 1V portable [id number] 05/31/2023 8:07 AM FINDINGS: Tubes, catheters and devices: Left-sided port catheter remains in place. Previously seen PICC and NG tube have been removed. Lungs: Bilateral lung nodules are again seen. These appear more distinct possibly due to difference in imaging technique. No infiltrates. Pleural spaces: Unremarkable. No pleural effusion. No pneumothorax. Heart/Mediastinum: Unremarkable. No cardiomegaly. Bones/joints: Unremarkable. XR/XR chest 1V portable [id number] IMPRESSION: 1. Left-sided port catheter remains in place. 2. Bilateral lung nodules are again seen.
--- NOTE | 2023-06-16 13:34 | ED_ITS ---
HPI - General Adult General: Chief complaint: General Medical Stated complaint: cough up blood Time Seen by Provider: 06/16/23 12:46 History of Present Illness: Patient presents to the ER with complaints of coughing up blood starting early this morning. Patient is on Eliquis for a aortic thrombus and does have a diagnosis of metastatic cancer originating from her colon into her liver and lungs. Patient denies bleeding anywhere else. Patient is satting 94% on room air. Patient earlier this month had a hemicolectomy to remove the tumor burden. Patient yesterday had an iron infusion secondary to anemia. Review of Systems General: Reports: 10 or more systems reviewed and unremarkable except in HPI and below PFSH ED PFSH: Medical History Aortic thrombus Colon cancer Diverticulitis GERD (gastroesophageal reflux disease) Hospital-acquired pneumonia Iron deficiency anemia due to chronic blood loss Lumbar burst fracture Otitis externa Post-menopausal osteoporosis Patient has had two fractures of the lumbar spine in the past year. Vitamin D deficiency Surgical History H/O section x 3 H/O local excision of skin lesion Left thigh: Pathology showed squamous of carcinoma History of cholecystectomy History of right hemicolectomy (05/25/23) Laparoscopic-converted to open right hemicolectomy History of umbilical hernia repair Port-A-Cath in place Family History Mother Cancer Family/Other Cancer maternal uncle Family/Other Cancer maternal uncle Lung disease Denies family history of Diabetes CAD (coronary artery disease) Clotting disorder Dementia Hyperlipidemia Psychiatric illness Chronic kidney disease (CKD) Suicide Anesthesia complication Bleeding disorder Family history of premature coronary artery disease Hypertension Stroke Social History Smoking and tobacco status: former smoker Quit status (tobacco): has quit using tobacco Year quit tobacco: 2015 Former quit date comment: between 35 and 40 years Alcohol intake: never Substance/Drug Use: never Household members: spouse Marital status: Current occupational status: unemployed Physical Exam Const: COMMON NORMALS: no acute distress, average body habitus, patient oriented x3, no limitations, healthy appearing, alert and well nourished HENMT: COMMON NORMALS: normocephalic, atraumatic, hearing grossly normal bilaterally, external ears normal, Normal external nose present and moist oral mucous membranes HEAD & SCALP: normocephalic and atraumatic NOSE: Normal external nose present EXTERNAL EAR: Yes external ears normal Eye: COMMON NORMALS: Equal, round and reactive pupils present, EOMs intact bilaterally, conjunctivae normal and no scleral icterus CONJUNCTIVA: Yes conjunctivae normal PUPIL: Yes Equal, round and reactive pupils present Neck/C-Spine: COMMON NORMALS: full ROM, no lymphadenopathy, supple, no meninge al signs, no JVD and Thyroid normal THYROID: Thyroid normal Chest: COMMONS NORMALS: normal inspection of the chest and normal palpation of entire chest wall Resp: COMMON NORMALS: normal respiratory effort, No retractions, No use of accessory muscles and clear to auscultation bilaterally AUSCULTATION: clear to auscultation bilaterally Cardio: COMMON NORMALS: no JVD, regular rate, regular rhythm, S1 normal heart sound present, S2 normal heart sound present, No gallops present (Cardio), No clicks present (Cardio), No murmurs present (Cardio) and No rub (Cardio) RATE : regular rate RHYTHM: regular rhythm HEART SOUNDS: S1 normal heart sound present and S2 normal heart sound present GI: COMMON NORMALS: Normal to inspection, nondistended, normoactive bowel sounds present, Soft to palpation, No hepatosplenomegaly present and no masses PALPATION: Yes Soft to palpation and Yes No hepatosplenomegaly present Neuro: COMMON NORMALS: patient oriented x3 SENSORIUM/ORIENTATION: Yes alert MENINGEAL SIGNS: Yes no meningeal signs Course Vital Signs: Vital signs: Vital Signs Temperature 97.6 F 06/16/23 11:41 Pulse Rate 90 06/16/23 17:46 Respiratory Rate 17 06/16/23 11:41 Blood Pressure 144/89 06/16/23 18:30 Pulse Oximetry 93 06/16/23 17:46 Oxygen Delivery Me thod Room Air 06/16/23 17:46 [facility] - General Adult Medical Decision Making Patient had mild hemoptysis with coughing. CT angiogram was done which was negative for acute changes. Lab work showed the patient's hemoglobin was 10.0. These findings was discussed with patient and her and the fact that she is on Eliquis makes her more likely to bleed. She is on Eliquis for clot in her aorta so would be higher risk taking her off of it and keeping her on it for the amount that she is actually bleeding now. Patient will stay on it for the time being patient will follow-up with her family practice doctor within the next 7 days. Differential Diagnosis Hemoptysis, Medical Records I reviewed the patient's medical records. Lab Data I reviewed the patient's lab results. 06/16/23 15:25 06/16/23 13:43 Radiology Impressions Chest X-Ray 06/16/23 12:20 IMPRESSION: 1. Left-sided port catheter remains in place. 2. Bilateral lung nodules are again seen. Chest CT 06/16/23 16:44 IMPRESSION: 1. No new focal consolidation. 2. No pulmonary embolus. 3. Multiple bilateral pulmonary nodules and masses which appear similar in size, number and distribution given differences in technique and slice acquisition. 4. Partially visualized peripancreatic mass measuring up to 3.7 x 2.1 cm (series 4, image 72). No comparison images at the time of dictation. 6. There is a hypodense lesion in the right adrenal gland measuring 14 mm, previously 13 mm and a large heterogeneously hypodense hepatic lesion in the right lobe measuring up to 10.2 x 9.6 cm, previously 9.5 x 7.8 cm impression. COMMENTS: In the absence of a history or active diagnosis of lung cancer, it is recommended that this patient with emphysema be evaluated for enrollment in a low dose CT lung cancer screening program. Laboratory Results WBC 7.89 10^3/uL (3.29-11.43) 06/16/23 15:25 RBC 4.96 10^6/uL (3.85-5.65) 06/16/23 15:25 Hgb 10.00 g/dL (11.27-16.99) L 06/16/23 15:25 Hct 35.3 % (36-47) L 06/16/23 15:25 MCV 71.2 fl (85-98) L 06/16/23 15:25 MCH 20.2 pg (27-33) L 06/16/23 15:25 MCHC 28.3 g/dL (30-55) L 06/16/23 15:25 RDW Not Reportable 06/16/23 15:25 Plt Count 808 10^3/cmm (157-399) H 06/16/23 15:25 MPV 9.0 fL (7.4-10.4) 06/16/23 15:25 Neut % (Auto) 62.0 % 06/16/23 15:25 Lymph % (Auto) 26.0 % 06/16/23 15:25 [place] % (Auto) 9.3 % 06/16/23 15:25 Eos % (Auto) 1.1 % 06/16/23 15:25 Baso % (Auto) 1.0 % 06/16/23 15:25 Neut # (Auto) 4.89 10^3/uL (1.8-7.7) 06/16/23 15:25 Lymph # (Auto) 2.1 10^3/uL (0.8-4.8) 06/16/23 15:25 [place] # (Auto) 0.7 10^3/uL (0.2-0.9) 06/16/23 15:25 Eos # (Auto) 0.1 10^3/uL (0.0-0.8) 06/16/23 15:25 Baso # (Auto) 0.1 10^3/uL (0.0-0.1) 06/16/23 15:25 Nucleated RBC % (auto) 0 % 06/16/23 15:25 Nucleated RBCs # 0.0 /100WBC 06/16/23 15:25 PT 20.30 SECONDS (12.1-14.9) H 06/16/23 15:25 INR 1.68 (0.8-1.2) H 06/16/23 15:25 Sodium 137 mmol/L (136-145) 06/16/23 13:43 Potassium 3.9 mmol/L (3.5-5.1) 06/16/23 13:43 Chloride 99 mmol/L (98-107) 06/16/23 13:43 Carbon Dioxide 26 mmol/L (22-29) 06/16/23 13:43 Anion Gap 15.9 (5-19) 06/16/23 13:43 BUN 6 mg/dL (8-23) L 06/16/23 13:43 Creatinine 0.9 mg/dL (0.5-0.9) 06/16/23 13:43 GFR Calculation 63.2 mL/min (90-130) L 06/16/23 13:43 Glucose 105 mg/dL (65-115) 06/16/23 13:43 Calculated Osmolality 282 mOsm/kg (285-295) L 06/16/23 13:43 Calcium 9.8 mg/dL (8.5-10.5) 06/16/23 13:43 Total Bilirubin 0.3 mg/dL (0.15-1.2) 06/16/23 13:43 AST 21 U/L (0-32) 06/16/23 13:43 ALT 8 U/L (0-33) 06/16/23 13:43 Alkaline Phosphatase 205 U/L (35-105) H 06/16/23 13:43 Total Protein 7.7 g/dL (6.6-8.7) 06/16/23 13:43 Albumin 3.8 g/dL (3.5-5.2) 06/16/23 13:43 Globulin 3.9 g/dL (1.3-4.6) 06/16/23 13:43 All radiology interpretation(s) finalized by discharge Discharge Plan Discharge Patient Disposition: Home Clinical Impression: Anticoagulation adequate, Cough with hemoptysis Condition: Stable Prescriptions: No Action dronabinol 5 mg capsule 5 mg PO BID Qty: 60 0RF Rx Instructions: administer before lunch and evening meal/dinner oxycodone 5 mg capsule 5 mg PO Q8H PRN (Reason: Pain) pantoprazole [Protonix] 40 mg tablet,delayed release (DR/EC) 40 mg PO BID 42 Days Qty: 84 1RF potassium chloride 20 mEq tablet extended release 20 meq PO DAILY Qty: 30 0RF sennosides-docusate sodium [Senna-S] 8.6-50 mg tablet 1 tab-cap PO BID PRN (Reason: constipation) Qty: 20 0RF Eliquis 5 mg tablet 5 mg PO BID Qty: 120 3RF acetaminophen 500 mg Tablet 500 mg PO Q6H PRN (Reason: Pain) Qty: 90 0RF Discharge Orders: Discharge ED (Routine); Ordered 06/16/23 Ordered By: Dewey Fountain Referrals: Leah Campos FNP [Primary Care Provider] - 1 week Patient Instructions: Coughing Up Blood (Hemoptysis) (ED) Activity Restrictions/Additional Instructions: Please follow-up with your family practice doctor or operations research scientist within the next 7 days for further evaluation and treatment. Please continue your Eliquis for the time being as the risk is too great for you to stop it currently. Coding Level of Care Code ED Diplomatic Officer for Bridget Estrada
[2023-06-16 14:19] LABS: Alanine Aminotransferase 8 U/L (0-33); Albumin Level 3.8 g/dL (3.5-5.2); Alkaline Phosphatase 205 U/L (35-105); Anion Gap 15.9 (5-19); Aspartate Amino Transferase 21 U/L (0-32); Blood Urea Nitrogen 6 mg/dL (8-23); Calcium 9.8 mg/dL (8.5-10.5); Carbon Dioxide 26 mmol/L (22-29); Chloride 99 mmol/L (98-107); Globulin 3.9 g/dL (1.3-4.6); Glomerular Filtration Rate 63.2 mL/min (90-130); Glucose 105 mg/dL (65-115); Osmolality Calculated 282 mOsm/kg (285-295); Potassium 3.9 mmol/L (3.5-5.1); Sodium 137 mmol/L (136-145); Total Bilirubin 0.3 mg/dL (0.15-1.2); Total Protein 7.7 g/dL (6.6-8.7)
--- NOTE | 2023-06-16 14:40 | PC.NURSE ---
LAB CALLED TO COME AND DRAW CBC AND INR BLOOD TESTS DUE TO NOT BEING ABLE TO GET ENOUGH BLOOD FROM IV START.
[2023-06-16 15:35] LABS: Basophils # 0.1 10^3/uL (0.0-0.1); Eosinophils # 0.1 10^3/uL (0.0-0.8); Eosinophils % 1.1 %; Hematocrit 35.3 % (36-47); Lymphocytes # 2.1 10^3/uL (0.8-4.8); Mean Corpuscular HGB Conc 28.3 g/dL (30-55); Mean Corpuscular Hemoglobin 20.2 pg (27-33); Mean Corpuscular Volume 71.2 fl (85-98); Monocytes # 0.7 10^3/uL (0.2-0.9); Monocytes % 9.3 %; Neutrophils # 4.89 10^3/uL (1.8-7.7); Nucleated Red Blood Cells % 0 %; Platelet Count 808 10^3/cmm (157-399); Red Blood Count 4.96 10^6/uL (3.85-5.65); White Blood Count 7.89 10^3/uL (3.29-11.43)
[2023-06-16 15:49] LABS: INR 1.68 (0.8-1.2)
--- NOTE | 2023-06-16 16:44 | CTR_ITS ---
PROCEDURE INFORMATION: Exam: CT Chest With Contrast; Diagnostic Exam date and time: 06/16/2023 5:27 PM Age: 62 years old Clinical indication: Other: Hemoptysis; Prior surgery; Surgery date: 1-6 months; Surgery type: Port; Additional info: Hemoptysis, metastatic cancer TECHNIQUE: Imaging protocol: Diagnostic computed tomography of the chest with contrast. Radiation optimization: All CT scans at this facility use at least one of these dose optimization techniques: automated exposure control; mA and/or kV adjustment per patient size (includes targeted exams where dose is matched to clinical indication); or iterative reconstruction. Contrast material: OMNI 350; Contrast volume: 100 ml; Contrast route: INTRAVENOUS (IV); REPORTING DATA: Count of CT and Cardiac NM exams in prior 12 months: This patient has received 3 known CTs and 0 known cardiac nuclear medicine studies in the 12 months prior to the current study. COMPARISON: CT chest w con* [id number] 05/25/2023 4:49 PM RADIATION DOSE METRICS: Total DLP (mGy-cm): 242.41 FINDINGS: Lungs: Multiple bilateral pulmonary nodules and masses involving every lobe measuring up to 2.5 x 2.3 cm, previously 2.3 x 2.0 cm, in the left lower lobe (series 5, image 40) and 1.4 x 1.3 cm, previously 1.2 x 1.2 cm in the right lower lobe (series 5, image 38). No new focal consolidation. Severe underlying emphysematous changes throughout both lungs with an upper lobe predominance also similar to the prior examination. Pleural spaces: Unremarkable. No pneumothorax. No pleural effusion. Heart: Unremarkable. No cardiomegaly. No pericardial effusion. Lymph nodes: Unremarkable. No enlarged lymph nodes. Vasculature: No pulmonary embolus. Liver: Large heterogeneously hypodense hepatic lesion in the right lobe measuring up to 10.2 x 9.6 cm, previously 9.5 x 7.8 cm impression.. Gallbladder and bile ducts: The gallbladder is absent. Pancreas: Partially visualized peripancreatic mass measuring up to 3.7 x 2.1 cm (series 4, image 72). No comparison images at the time of dictation. Adrenal glands: There is a hypodense lesion in the right adrenal gland measuring 14 mm, previously 13 mm. Bones/joints: Moderate compression deformity of the L1 vertebral body redemonstrated and similar. Osseous hemangiomas in the T4 and T8 vertebral bodies. Soft tissues: Unremarkable. CT/CT chest w con* [id number] IMPRESSION: 1. No new focal consolidation. 2. No pulmonary embolus. 3. Multiple bilateral pulmonary nodules and masses which appear similar in size, number and distribution given differences in technique and slice acquisition. 4. Partially visualized peripancreatic mass measuring up to 3.7 x 2.1 cm (series 4, image 72). No comparison images at the time of dictation. 6. There is a hypodense lesion in the right adrenal gland measuring 14 mm, previously 13 mm and a large heterogeneously hypodense hepatic lesion in the right lobe measuring up to 10.2 x 9.6 cm, previously 9.5 x 7.8 cm impression. COMMENTS: In the absence of a history or active diagnosis of lung cancer, it is recommended that this patient with emphysema be evaluated for enrollment in a low dose CT lung cancer screening program.
[2023-06-16] MEDS: iohexol 350 mg/mL 500 mL Btl (per mL) IV (17:30)
== END 2023-06-16 19:15 | disposition home or self-care (01) ==
PROVIDERS: Emergency Provider Emergency Medicine; PCP Nurse Practitioner
DX: R04.2 Hemoptysis (principal); Z79.01 Long term (current) use of anticoagulants; Z87.891 Personal history of nicotine dependence; Z85.038 Personal history of other malignant neoplasm of large intestine
CPT/HCPCS: 36415; 71045; 71260; 80053; 85025; 85610; 99285; Q9967

== ENCOUNTER 2023-06-21 12:00 | Oncology outpatient (recurring) (ONCR) | payer MEDICAID, SELFPAY ==
[2023-06-06 14:33] LABS: Basophils # 0.1 10^3/uL (0.0-0.1); Basophils % 0.5 %; Eosinophils # 0.2 10^3/uL (0.0-0.8); Eosinophils % 1.4 %; Hematocrit 31.5 % (36-47); Lymphocytes # 1.3 10^3/uL (0.8-4.8); Lymphocytes % 10.3 %; Mean Corpuscular HGB Conc 28.9 g/dL (30-55); Mean Corpuscular Hemoglobin 20.1 pg (27-33); Mean Corpuscular Volume 69.5 fl (85-98); Mean Platelet Volume 9.1 fL (7.4-10.4); Monocytes # 0.8 10^3/uL (0.2-0.9); Monocytes % 6.1 %; Neutrophils # 10.26 10^3/uL (1.8-7.7); Neutrophils % 81.1 %; Nucleated Red Blood Cells % 0 %; Platelet Count 870 10^3/cmm (157-399); Red Blood Count 4.53 10^6/uL (3.85-5.65); Red Cell Distribution Width 31.6 % (12.1-15.1); White Blood Count 12.65 10^3/uL (3.29-11.43)
[2023-06-06 14:50] LABS: Alanine Aminotransferase 12 U/L (0-33); Albumin Level 3.2 g/dL (3.5-5.2); Alkaline Phosphatase 129 U/L (35-105); Anion Gap 13.8 (5-19); Aspartate Amino Transferase 23 U/L (0-32); Blood Urea Nitrogen 10 mg/dL (8-23); Calcium 9.2 mg/dL (8.5-10.5); Carbon Dioxide 29 mmol/L (22-29); Chloride 95 mmol/L (98-107); Globulin 3.6 g/dL (1.3-4.6); Glomerular Filtration Rate 72.4 mL/min (90-130); Glucose 83 mg/dL (65-115); Iron 27 ug/dL (37-145); Osmolality Calculated 278 mOsm/kg (285-295); Percent Saturation 11.3 % (20-50); Sodium 135 mmol/L (136-145); Total Bilirubin 0.3 mg/dL (0.15-1.2); Total Iron Binding Capacity 237 mcg/dl; Total Protein 6.8 g/dL (6.6-8.7); Unsaturated Iron Binding 210 ug/dL (112-347)
[2023-06-06 14:56] LABS: Potassium 2.8 mmol/L (3.5-5.1)
[2023-06-14 14:28] VITALS: BP 125/75; PULSE 83; RESP 17; TEMP 37.1; O2SAT 94
[2023-06-14] MEDS: ferric carboxy (IVPB) 750 MG in sodium chloride 0.9% (100 ml) 100 ML 345 MG IV (14:44)
[2023-06-14 15:30] VITALS: BP 118/71; PULSE 84; RESP 17; TEMP 36.3; O2SAT 95
[2023-06-14 15:40] LABS: Basophils # 0.1 10^3/uL (0.0-0.1); Basophils % 0.9 %; Eosinophils # 0.1 10^3/uL (0.0-0.8); Eosinophils % 1.3 %; Hematocrit 29.3 % (36-47); Lymphocytes # 1.8 10^3/uL (0.8-4.8); Lymphocytes % 23.1 %; Mean Corpuscular Hemoglobin 20.6 pg (27-33); Mean Corpuscular Volume 71.1 fl (85-98); Mean Platelet Volume 9.1 fL (7.4-10.4); Monocytes # 0.7 10^3/uL (0.2-0.9); Monocytes % 9.4 %; Neutrophils # 5.07 10^3/uL (1.8-7.7); Neutrophils % 64.9 %; Nucleated Red Blood Cells % 0 %; Platelet Count 973 10^3/cmm (157-399); Red Blood Count 4.12 10^6/uL (3.85-5.65)
[2023-06-14 15:52] LABS: Alkaline Phosphatase 164 U/L (35-105); Blood Urea Nitrogen 9 mg/dL (8-23); Calcium 9.2 mg/dL (8.5-10.5); Carbon Dioxide 29 mmol/L (22-29); Chloride 98 mmol/L (98-107); Globulin 3.5 g/dL (1.3-4.6); Glomerular Filtration Rate 63.2 mL/min (90-130); Glucose 101 mg/dL (65-115); Osmolality Calculated 281 mOsm/kg (285-295); Sodium 136 mmol/L (136-145); Total Bilirubin 0.2 mg/dL (0.15-1.2); Total Protein 6.5 g/dL (6.6-8.7)
[2023-06-14 16:04] LABS: Alanine Aminotransferase < 5 U/L (0-33); Aspartate Amino Transferase 5 U/L (0-32)
[2023-06-14 16:07] LABS: Add RBC Morph Yes; Anisocytosis 2+; Hypochromasia 3+; RBC Morph Comp No; Slide Review Slide Review Perform
[2023-06-14 16:46] LABS: Anion Gap 12.9 (5-19); Potassium 3.9 mmol/L (3.5-5.1)
[2023-06-21 12:19] VITALS: BP 120/84; PULSE 93; RESP 18; TEMP 36.6
[2023-06-21 12:54] LABS: Basophils # 0.1 10^3/uL (0.0-0.1); Basophils % 0.4 %; Eosinophils % 0.2 %; Hematocrit 33.5 % (36-47); Lymphocytes # 1.7 10^3/uL (0.8-4.8); Lymphocytes % 12.8 %; Mean Corpuscular HGB Conc 29.6 g/dL (30-55); Mean Corpuscular Hemoglobin 21.6 pg (27-33); Monocytes % 7.4 %; Neutrophils # 10.24 10^3/uL (1.8-7.7); Neutrophils % 78.9 %; Nucleated Red Blood Cells % 0 %; Platelet Count 724 10^3/cmm (157-399); Red Blood Count 4.59 10^6/uL (3.85-5.65); White Blood Count 12.98 10^3/uL (3.29-11.43)
[2023-06-21] MEDS: ondansetron 2 mg/ML SDV 2 mL 8 MG IVP (13:05)
[2023-06-21] MEDS: ferric carboxy (IVPB) 750 MG in sodium chloride 0.9% (100 ml) 100 ML 345 MG IV (13:07)
[2023-06-21 13:18] LABS: Alanine Aminotransferase 9 U/L (0-33); Albumin Level 3.5 g/dL (3.5-5.2); Alkaline Phosphatase 189 U/L (35-105); Anion Gap 15.2 (5-19); Aspartate Amino Transferase 38 U/L (0-32); Blood Urea Nitrogen 8 mg/dL (8-23); Calcium 9.3 mg/dL (8.5-10.5); Carbon Dioxide 27 mmol/L (22-29); Chloride 96 mmol/L (98-107); Globulin 3.5 g/dL (1.3-4.6); Glucose 100 mg/dL (65-115); Osmolality Calculated 276 mOsm/kg (285-295); Potassium 4.2 mmol/L (3.5-5.1); Sodium 134 mmol/L (136-145); Total Bilirubin 0.5 mg/dL (0.15-1.2)
[2023-06-21 13:38] LABS: Slide Review Slide Review Perform
[2023-06-21 14:25] VITALS: BP 120/78; PULSE 98; RESP 18; TEMP 36.6; O2SAT 98
== END 2023-06-23 23:59 | disposition home or self-care (01) ==
PROVIDERS: Nurse Practitioner Family; PCP Nurse Practitioner; Visit Provider Internal Medicine Medical Oncology
DX: C18.3 Malignant neoplasm of hepatic flexure (principal); D50.0 Iron deficiency anemia secondary to blood loss (chronic)
CPT/HCPCS: 36415; 80053; 83540; 83550; 85025; 96365; 96375; J1439; J1642; J2405

== ENCOUNTER 2023-07-23 08:45 | Oncology outpatient (recurring) (ONCR) | payer MEDICAID, SELFPAY ==
[2023-07-09 07:55] VITALS: BP 110/80; PULSE 76; RESP 17; TEMP 35.9; O2SAT 99
[2023-07-09 08:13] LABS: Basophils # 0.1 10^3/uL (0.0-0.1); Basophils % 0.9 %; Eosinophils # 0.2 10^3/uL (0.0-0.8); Eosinophils % 2.2 %; Hematocrit 39.4 % (36-47); Lymphocytes # 1.9 10^3/uL (0.8-4.8); Lymphocytes % 19.1 %; Mean Corpuscular HGB Conc 29.2 g/dL (30-55); Mean Corpuscular Hemoglobin 23.8 pg (27-33); Mean Corpuscular Volume 81.4 fl (85-98); Mean Platelet Volume 8.7 fL (7.4-10.4); Monocytes # 0.7 10^3/uL (0.2-0.9); Monocytes % 6.9 %; Neutrophils # 6.92 10^3/uL (1.8-7.7); Neutrophils % 70.7 %; Nucleated Red Blood Cells % 0 %; Platelet Count 652 10^3/cmm (157-399); Red Blood Count 4.84 10^6/uL (3.85-5.65); Red Cell Distribution Width 31.3 % (12.1-15.1)
[2023-07-09 08:45] LABS: Alanine Aminotransferase 7 U/L (0-33); Albumin Level 3.5 g/dL (3.5-5.2); Alkaline Phosphatase 166 U/L (35-105); Aspartate Amino Transferase 19 U/L (0-32); Blood Urea Nitrogen 8 mg/dL (8-23); Carbon Dioxide 27 mmol/L (22-29); Chloride 101 mmol/L (98-107); Globulin 3.7 g/dL (1.3-4.6); Glucose 90 mg/dL (65-115); Osmolality Calculated 286 mOsm/kg (285-295); Sodium 139 mmol/L (136-145); Total Bilirubin 0.2 mg/dL (0.15-1.2); Total Protein 7.2 g/dL (6.6-8.7)
[2023-07-09] MEDS: dextrose 5% 250 ML 75 ML IV (09:33)
[2023-07-09] MEDS: palonosetron 0.25 mg/5 mL SDV IVP (09:35)
[2023-07-09] MEDS: oxaliplatin 100 MG, oxaliplatin 30 MG in dextrose 5% 250 ML 138 MG IV (10:12)
[2023-07-09] MEDS: leucovorin 610 MG in dextrose 5% 250 ML 62.5 MG IV (10:13)
[2023-07-09] MEDS: fluorouraciL 3,650 MG, elastomeric pump 1 PUMP in sodium chloride 0.9% (100 ml) 19 ML IV (12:38)
[2023-07-09 12:45] VITALS: BP 134/80; PULSE 69; RESP 17; TEMP 36.2; O2SAT 98
[2023-07-11 13:45] VITALS: BP 145/83; PULSE 74; RESP 16; TEMP 36.3; O2SAT 96
[2023-07-16 09:30] VITALS: BP 132/84; PULSE 98; RESP 16; TEMP 36.4; O2SAT 98
[2023-07-16 10:08] LABS: Basophils # 0.1 10^3/uL (0.0-0.1); Basophils % 0.7 %; Eosinophils # 0.2 10^3/uL (0.0-0.8); Eosinophils % 2.5 %; Hematocrit 37.8 % (36-47); Lymphocytes # 2.2 10^3/uL (0.8-4.8); Lymphocytes % 25.2 %; Mean Corpuscular HGB Conc 30.2 g/dL (30-55); Mean Corpuscular Hemoglobin 23.8 pg (27-33); Mean Corpuscular Volume 79.1 fl (85-98); Mean Platelet Volume 9.1 fL (7.4-10.4); Monocytes # 0.7 10^3/uL (0.2-0.9); Monocytes % 8.2 %; Neutrophils # 5.48 10^3/uL (1.8-7.7); Neutrophils % 62.8 %; Nucleated Red Blood Cells % 0 %; Platelet Count 549 10^3/cmm (157-399); Red Blood Count 4.78 10^6/uL (3.85-5.65); Red Cell Distribution Width 28.5 % (12.1-15.1); White Blood Count 8.73 10^3/uL (3.29-11.43)
[2023-07-16 10:31] LABS: Alanine Aminotransferase 9 U/L (0-33); Albumin Level 3.5 g/dL (3.5-5.2); Alkaline Phosphatase 159 U/L (35-105); Anion Gap 15.4 (5-19); Aspartate Amino Transferase 25 U/L (0-32); Blood Urea Nitrogen 8 mg/dL (8-23); Calcium 9.6 mg/dL (8.5-10.5); Carbon Dioxide 27 mmol/L (22-29); Chloride 98 mmol/L (98-107); Globulin 3.7 g/dL (1.3-4.6); Glomerular Filtration Rate 72.2 mL/min (90-130); Glucose 90 mg/dL (65-115); Osmolality Calculated 282 mOsm/kg (285-295); Potassium 3.4 mmol/L (3.5-5.1); Sodium 137 mmol/L (136-145); Total Bilirubin 0.3 mg/dL (0.15-1.2); Total Protein 7.2 g/dL (6.6-8.7)
[2023-07-23 09:21] LABS: Basophils # 0.1 10^3/uL (0.0-0.1); Basophils % 1.3 %; Eosinophils # 0.3 10^3/uL (0.0-0.8); Hematocrit 39.1 % (36-47); Lymphocytes # 1.9 10^3/uL (0.8-4.8); Mean Corpuscular HGB Conc 30.7 g/dL (30-55); Mean Corpuscular Hemoglobin 24.9 pg (27-33); Mean Corpuscular Volume 81.3 fl (85-98); Mean Platelet Volume 8.9 fL (7.4-10.4); Monocytes # 0.6 10^3/uL (0.2-0.9); Neutrophils # 3.31 10^3/uL (1.8-7.7); Neutrophils % 53.4 %; Nucleated Red Blood Cells % 0 %; Platelet Count 443 10^3/cmm (157-399); Red Blood Count 4.81 10^6/uL (3.85-5.65); Red Cell Distribution Width 27.7 % (12.1-15.1)
[2023-07-23 09:34] LABS: Alanine Aminotransferase 8 U/L (0-33); Albumin Level 3.6 g/dL (3.5-5.2); Alkaline Phosphatase 144 U/L (35-105); Anion Gap 14.8 (5-19); Aspartate Amino Transferase 24 U/L (0-32); Blood Urea Nitrogen 7 mg/dL (8-23); Calcium 9.9 mg/dL (8.5-10.5); Carbon Dioxide 29 mmol/L (22-29); Chloride 100 mmol/L (98-107); Globulin 3.2 g/dL (1.3-4.6); Glomerular Filtration Rate 84.2 mL/min (90-130); Glucose 78 mg/dL (65-115); Iron 86 ug/dL (37-145); Osmolality Calculated 287 mOsm/kg (285-295); Percent Saturation 45.5 % (20-50); Potassium 3.8 mmol/L (3.5-5.1); Sodium 140 mmol/L (136-145); Total Bilirubin 0.2 mg/dL (0.15-1.2); Total Iron Binding Capacity 189 mcg/dl; Total Protein 6.8 g/dL (6.6-8.7); Unsaturated Iron Binding 103 ug/dL (112-347)
[2023-07-23 09:47] LABS: Ferritin 2871 ng/mL (15-150)
[2023-07-23] MEDS: sodium chloride 0.9% 250 ML 75 ML IV (10:19)
[2023-07-23] MEDS: palonosetron 0.25 mg/5 mL SDV IVP (10:21)
[2023-07-23] MEDS: dextrose 5% 250 ML 75 ML IV (10:58)
[2023-07-23] MEDS: oxaliplatin 100 MG, oxaliplatin 30 MG in dextrose 5% 250 ML 138 MG IV (10:59)
[2023-07-23] MEDS: leucovorin 610 MG in dextrose 5% 250 ML 62.5 MG IV (10:59)
[2023-07-23] MEDS: sodium chloride 0.9% 500 ML 999 ML IV (13:35)
[2023-07-23] MEDS: methylPREDNISolone sod succ 125 mg SDV IV (13:40)
[2023-07-23] MEDS: diphenhydrAMINE 50 mg/mL SDV 1mL IVP (13:40)
[2023-07-23] MEDS: sodium chloride 0.9% 1,000 ML 999 ML IV (14:20)
[2023-07-23] MEDS: ipratropium-albuterol 3 mL Neb INHALATION (14:20)
[2023-07-23] MEDS: fluorouraciL 3,650 MG, elastomeric pump 1 PUMP in sodium chloride 0.9% (100 ml) 19 ML IV (15:37)
[2023-07-23 15:45] VITALS: BP 121/83; PULSE 92; RESP 16; TEMP 36.7; O2SAT 95
--- NOTE | 2023-07-23 16:47 | PC.NURSE ---
Oxaliplatin Infusion Reaction Patient received infusion of Oxaliplatin today, 07/23/23, started at 1059. Infusion completed at 1330 and patient's and this nurse helped patient ambulate to restroom. Upon returning from restroom at 1335, patient stated she was struggling to breathe and inspiratory wheezing was heard. Airway, breathing, circulation and patient vital signs were assessed. Provider was notified and Paige Mckeon APRN responded. Patient was given 125 mg solumedrol IVP, 50 mg benadryl IVP, 500 mL normal saline, and 2L oxygen nasal canula per Paige Mckeon APRN. Dr. Crowe was notified and assessed patient, and orders were given to administer 1000 mL normal saline and duoneb breathing treatment. Patient was continuously monitored and stated breathing was better following interventions. Patient vital signs were monitored throughout and oxygen saturation consistently stayed above 95%. Dr. Crowe discussed with patient discontinuing Oxaliplatin for future treatments and patient expressed understanding. Patient was educated to notify provider if needed. Patient was discharged home at 1545 with 5-FU pump to return for disconnection on 07/25/23.
== END 2023-07-24 23:59 | disposition home or self-care (01) ==
PROVIDERS: Nurse Practitioner Family; PCP Nurse Practitioner; Visit Provider Internal Medicine Medical Oncology
DX: C18.3 Malignant neoplasm of hepatic flexure (principal); D50.0 Iron deficiency anemia secondary to blood loss (chronic); Z79.899 Other long term (current) drug therapy; Z51.11 Encounter for antineoplastic chemotherapy
CPT/HCPCS: 36591; 80053; 82378; 82728; 83540; 83550; 85025; 96367; 96368; 96375; 96413; 96415; 96416; 96523; 99215; J0640; J1100; J1200; J1642; J2469; J2930; J7030; J7040; J7050; J7060; J9190; J9263

== ENCOUNTER 2023-08-06 08:00 | Oncology outpatient (recurring) (ONCR) | payer MEDICAID, SELFPAY ==
[2023-07-25] MEDS: ondansetron 2 mg/ML SDV 2 mL 8 MG IVP (11:16)
[2023-07-25] MEDS: sodium chloride 0.9% 500 ML 999 ML IV (11:16)
[2023-07-25 11:55] VITALS: BP 124/78; PULSE 68; RESP 18; TEMP 36.6; O2SAT 98
[2023-08-06 08:01] VITALS: BP 129/85; PULSE 78; RESP 16; TEMP 36.7; O2SAT 97
[2023-08-06 08:26] LABS: Basophils # 0.1 10^3/uL (0.0-0.1); Basophils % 1.4 %; Eosinophils # 0.2 10^3/uL (0.0-0.8); Eosinophils % 3.2 %; Hematocrit 43.5 % (36-47); Lymphocytes % 34.9 %; Mean Corpuscular HGB Conc 30.3 g/dL (30-55); Mean Corpuscular Hemoglobin 26.1 pg (27-33); Mean Corpuscular Volume 86.1 fl (85-98); Mean Platelet Volume 8.8 fL (7.4-10.4); Monocytes # 0.7 10^3/uL (0.2-0.9); Monocytes % 11.5 %; Neutrophils # 2.86 10^3/uL (1.8-7.7); Neutrophils % 48.8 %; Nucleated Red Blood Cells % 0 %; Platelet Count 180 10^3/cmm (157-399); Red Blood Count 5.05 10^6/uL (3.85-5.65); Red Cell Distribution Width 24.7 % (12.1-15.1); White Blood Count 5.85 10^3/uL (3.29-11.43)
[2023-08-06 08:52] LABS: Bilirubin Urine Neg (Negative); Blood Urine 2+ (Negative); Glucose Urine UA Norm (Normal); Ketones Urine Negative (Negative); Leukocyte Esterase Urine 2+ (Negative); Nitrate Urine Negative (Negative); Protein Urine Neg (Negative); RBC Urine 0-4 /hpf (0-2); Specific Gravity, Urine 1.015 (1.005-1.030); Urine Appearance Cloudy (CLEAR); Urine Color Yellow (Yellow); Urobilinogen Urine Neg (Negative); WBC Urine 25-40 /hpf (0-5); pH Urine 6 (5-7)
[2023-08-06 08:53] LABS: Add Urine Culture? No; Bacteria Urine 2+ /hpf; Hyaline Casts Urine 0-4 /lpf; Mucus Urine 1+ /hpf; Squamous Epithelial Cell Urine 25-40 /hpf (0-5)
[2023-08-06 09:01] LABS: Alanine Aminotransferase 22 U/L (0-33); Albumin Level 3.9 g/dL (3.5-5.2); Alkaline Phosphatase 123 U/L (35-105); Anion Gap 12.9 (5-19); Aspartate Amino Transferase 31 U/L (0-32); Blood Urea Nitrogen 7 mg/dL (8-23); Calcium 10.1 mg/dL (8.5-10.5); Carbon Dioxide 27 mmol/L (22-29); Chloride 104 mmol/L (98-107); Globulin 2.9 g/dL (1.3-4.6); Glomerular Filtration Rate 72.2 mL/min (90-130); Glucose 110 mg/dL (65-115); Osmolality Calculated 289 mOsm/kg (285-295); Potassium 3.9 mmol/L (3.5-5.1); Sodium 140 mmol/L (136-145); Total Bilirubin 0.2 mg/dL (0.15-1.2); Total Protein 6.8 g/dL (6.6-8.7)
== END 2023-08-23 23:59 | disposition home or self-care (01) ==
PROVIDERS: Nurse Practitioner Family; PCP Nurse Practitioner; Visit Provider Internal Medicine Medical Oncology
DX: C18.3 Malignant neoplasm of hepatic flexure (principal); D50.0 Iron deficiency anemia secondary to blood loss (chronic); Z79.899 Other long term (current) drug therapy
CPT/HCPCS: 80053; 81001; 82378; 85025; 96360; 96375; 96523; J1642; J2405; J7040

== ENCOUNTER → 2023-08-09 08:33 | Outpatient (BNVA) | payer MEDICAID, SELFPAY | PROVIDERS: PCP Nurse Practitioner; Visit Provider Nurse Practitioner Family | DX: J02.9 Acute pharyngitis, unspecified (principal); T78.40XA Allergy, unspecified, initial encounter | CPT/HCPCS: 87070; 87880 ==

== ENCOUNTER → 2023-08-20 13:58 | Outpatient (BNVA) | payer MEDICAID, SELFPAY | PROVIDERS: PCP Nurse Practitioner; Visit Provider Nurse Practitioner Family | DX: J01.90 Acute sinusitis, unspecified (principal); B96.89 Other specified bacterial agents as the cause of diseases classified elsewhere; B37.9 Candidiasis, unspecified | CPT/HCPCS: 87070 ==

== ENCOUNTER 2023-09-03 09:44 | Emergency (ER) | payer MEDICAID, SELFPAY ==
[2023-09-03 10:17] VITALS: BP 149/87; PULSE 74; RESP 18; TEMP 36.6; O2SAT 99; BMI 18.3
--- NOTE | 2023-09-03 10:52 | XR_ITS ---
WS: [id number] Exam: XR chest 1V portable [id number] Date/Time of Exam: 09/03/2023 10:52 AM Reason For Exam: cough Comparison 06/16/2023. Again noted are bilateral lung nodules and masses stable in appearance. The lungs are otherwise fully expanded. No infiltrates are seen. Hyperinflation. No pleural effusions. The mediastinum is normal i n contour. A LEFT subclavian port ends in the lower one third of the SVC. Bony structures are intact. IMPRESSION: 1. Bilateral pulmonary nodules and masses unchanged. 2. Pulmonary hyperinflation. No consolidating infiltrates are seen.
[2023-09-03 12:48] LABS: Basophils # 0.1 10^3/uL (0.0-0.1); Basophils % 0.6 %; Eosinophils # 0.2 10^3/uL (0.0-0.8); Hematocrit 49.2 % (36-47); Lymphocytes # 1.8 10^3/uL (0.8-4.8); Lymphocytes % 22.6 %; Mean Corpuscular HGB Conc 31.7 g/dL (30-55); Mean Corpuscular Hemoglobin 28.1 pg (27-33); Mean Corpuscular Volume 88.5 fl (85-98); Mean Platelet Volume 8.8 fL (7.4-10.4); Monocytes # 0.5 10^3/uL (0.2-0.9); Monocytes % 5.5 %; Neutrophils # 5.63 10^3/uL (1.8-7.7); Neutrophils % 69.1 %; Nucleated Red Blood Cells % 0 %; Platelet Count 472 10^3/cmm (157-399); Red Blood Count 5.56 10^6/uL (3.85-5.65); Red Cell Distribution Width 18.1 % (12.1-15.1); White Blood Count 8.15 10^3/uL (3.29-11.43)
[2023-09-03 13:22] LABS: Alanine Aminotransferase 11 U/L (0-33); Albumin Level 3.9 g/dL (3.5-5.2); Alkaline Phosphatase 127 U/L (35-105); Anion Gap 13.4 (5-19); Aspartate Amino Transferase 19 U/L (0-32); Blood Urea Nitrogen 5 mg/dL (8-23); Calcium 10.1 mg/dL (8.5-10.5); Carbon Dioxide 28 mmol/L (22-29); Chloride 100 mmol/L (98-107); Globulin 3.4 g/dL (1.3-4.6); Glomerular Filtration Rate 72.2 mL/min (90-130); Glucose 100 mg/dL (65-115); Osmolality Calculated 283 mOsm/kg (285-295); Potassium 3.4 mmol/L (3.5-5.1); Sodium 138 mmol/L (136-145); Total Bilirubin 0.3 mg/dL (0.15-1.2); Total Protein 7.3 g/dL (6.6-8.7)
--- NOTE | 2023-09-03 13:37 | ED_ITS ---
HPI - GI Bleed 2 General: Chief complaint: GI Bleed Stated complaint: couging up blood, doc sent over, on blood thinners Time Seen by Provider: 09/03/23 13:19 Source: patient Mode of arrival: ambulatory Limitations: no limitations History of Present Illness: 63-year-old female has a history of canc er states that yesterday she had a small amount of blood that she had coughed up. States she had a cough for last 2 days she states it was a very small amount Hayden fullness since resolved. She denies any shortness of breath denies any pain anywhere denies any fevers she denies any worsening proving factors. Associated symptoms: Denies abdominal pain, chills, fever(s), headache(s), nausea, rash or vomiting Review of Systems 2 Const: Denies: fever(s), chills, body aches or change in appetite ENMT: Denies: throat pain or dental pain Card: Denies: chest pain Resp: Reports: hemoptysis; Denies: dyspnea GI: Denies: abdominal pain, nausea, vomiting or diarrhea Musc: Denies: neck pain or back pain Skin/Breast: Denies: rash Neuro: Denies: headache(s) PFSH ED 2 PFSH: Medical History Acute bacterial sinusitis Stephie albicans infection Hypersensitivity Pharyngitis Iron deficiency anemia due to chronic blood loss Colon cancer Aortic thrombus Hospital-acquired pneumonia Diverticulitis GERD (gastroesophageal reflux disease) Otitis externa Lumbar burst fracture Post-menopausal osteoporosis Patient has had two fractures of the lumbar spine in the past year. Vitamin D deficiency Surgical History Port-A-Cath in place History of right hemicolectomy (05/25/23) Laparoscopic-converted to open right hemicolectomy H/O local excision of skin lesion Left thigh: Pathology showed squamous of carcinoma History of cholecystectomy H/O section x 3 History of umbilical hernia repair Family History Mother Cancer Family/Other Cancer maternal uncle Family/Other Cancer maternal uncle Lung disease Denies family history of Diabetes CAD (coronary artery disease) Clotting disorder Dementia Hyperlipidemia Psychiatric illness Chronic kidney disease (CKD) Suicide Anesthesia complication Bleeding disorder Family history of premature coronary artery disease Hypertension Stroke Social History Smoking and tobacco/nicotine status: former use of tobacco/nicotine Quit status (tobacco/nicotine): has quit using Year quit tobacco: 2015 Former quit date comment: between 35 and 40 years Alcohol intake: never Substance/Drug Use: never Household members: spouse Marital status: Current occupational status: unemployed Physical Exam 2 Const: COMMON NORMALS: no acute distress, patient oriented x3 and healthy appearing HENMT: COMMON NORMALS: normocephalic and atraumatic HEAD & SCALP: n ormocephalic and atraumatic Neck/C-Spine: COMMON NORMALS: full ROM and supple Chest: COMMONS NORMALS: normal inspection of the chest and normal palpation of entire chest wall Resp: COMMON NORMALS: normal respiratory effort, No retractions, No use of accessory muscles and clear to auscultation bilaterally AUSCULTATION: clear to auscultation bilaterally Cardio: COMMON NORMALS: regular rate, regular rhythm and No murmurs present (Cardio) RATE: regular rate RHYTHM: regular rhythm Extremity: COMMON NORMALS: normal to inspection and full ROM Neuro: COMMON NORMALS: patient oriented x3, moves all extremities and no focal motor deficits Psych: COMMON NORMALS: mental status grossly normal, Normal thought process present and cooperative THOUGHT PROCESS: Normal thought process present Skin: COMMON NORMALS: no rashes or lesions noted and no wounds GENERAL SKIN EXAM: no rashes or lesions noted Course 2 Vital Signs: Vital signs: Vital Signs Temperature 97.9 F 09/03/23 10:17 Pulse Rate 74 09/03/23 10:17 Respiratory Rate 18 09/03/23 10:17 Blood Pressure 149/87 09/03/23 10:17 Pulse Oximetry 99 09/03/23 10:17 Oxygen Delivery Me thod Room Air 09/03/23 10:17 MDM - GI Bleed Medical Decision Making Patient presents with hemoptysis that is since resolved she is well-appearing here no distress she has no signs of pulmonary embolism x-ray here is normal blood work is normal we will start her on Keflex she sees her oncologist on the 26 she is to follow-up as scheduled return if she has worsening symptoms she understands agrees to plan. Medical Records I reviewed the patient's medical records. Lab Data I reviewed the patient's lab results. 09/03/23 12:09/03/23 12: Laboratory Results WBC 8.15 10^3/uL (3.29-11.43) 09/03/23 12: RBC 5.56 10^6/uL (3.85-5.65) 09/03/23 12:26 Hgb 15.60 g/dL (11.27-16.99) 09/03/23 12:26 Hct 49.2 % (36-47) H 09/03/23 12:26 MCV 88.5 fl (85-98) 09/03/23 12: MCH 28.1 pg (27-33) 09/03/23 12: MCHC 31.7 g/dL (30-55) 09/03/23 12: RDW 18.1 % (12.1-15.1) H 09/03/23 12: Plt Count 472 10^3/cmm (157-399) H 09/03/23 12: MPV 8.8 fL (7.4-10.4) 09/03/23 12: Neut % (Auto) 69.1 % 09/03/23 12: Lymph % (Auto) 22.6 % 09/03/23 12: [place] % (Auto) 5.5 % 09/03/23 12: Eos % (Auto) 2.0 % 09/03/23 12: Baso % (Auto) 0.6 % 09/03/23 12: Neut # (Auto) 5.63 10^3/uL (1.8-7.7) 09/03/23 12:26 Lymph # (Auto) 1.8 10^3/uL (0.8-4.8) 09/03/23 12: [place] # (Auto) 0.5 10^3/uL (0.2-0.9) 09/03/23 12:26 Eos # (Auto) 0.2 10^3/uL (0.0-0.8) 09/03/23 12:26 Baso # (Auto) 0.1 10^3/uL (0.0-0.1) 09/03/23 12:26 Nucleated RBC % (auto) 0 % 09/03/23 12:26 Nucleated RBCs # 0.0 /100WBC 09/03/23 12:26 Sodium 138 mmol/L (136-145) 09/03/23 12:26 Potassium 3.4 mmol/L (3.5-5.1) L 09/03/23 12:26 Chloride 100 mmol/L (98-107) 09/03/23 12:26 Carbon Dioxide 28 mmol/L (22-29) 09/03/23 12:26 Anion Gap 13.4 (5-19) 09/03/23 12:26 BUN 5 mg/dL (8-23) L 09/03/23 12:26 Creatinine 0.8 mg/dL (0.5-0.9) 09/03/23 12:26 GFR Calculation 72.2 mL/min (90-130) L 09/03/23 12:26 Glucose 100 mg/dL (65-115) 09/03/23 12:26 Calculated Osmolality 283 mOsm/kg (285-295) L 09/03/23 12:26 Calcium 10.1 mg/dL (8.5-10.5) 09/03/23 12:26 Total Bilirubin 0.3 mg/dL (0.15-1.2) 09/03/23 12:26 AST 19 U/L (0-32) 09/03/23 12:26 ALT 11 U/L (0-33) 09/03/23 12:26 Alkaline Phosphatase 127 U/L (35-105) H 09/03/23 12:26 Total Protein 7.3 g/dL (6.6-8.7) 09/03/23 12:26 Albumin 3.9 g/dL (3.5-5.2) 09/03/23 12:26 Globulin 3.4 g/dL (1.3-4.6) 09/03/23 12:26 All radiology interpretation(s) finalized by discharge Discharge Plan Discharge Patient Disposition: Home Clinical Impression: Hemoptysis Condition: Stable Prescriptions: New cephalexin 500 mg capsule 500 mg PO TID 7 Days Qty: 21 0RF No Action ipratropium-albuterol 0.5 mg-3 mg(2.5 mg base)/3 mL solution for nebulization 3 ml inhalation Q6H PRN (Reason: wheezing) Qty: 10 1RF amoxicillin-pot clavulanate 875-125 mg tablet 1 tab PO BID Qty: 14 0RF pantoprazole [Protonix] 40 mg tablet,delayed release (DR/EC) 40 mg PO BID 42 Days Qty: 84 1RF ondansetron 4 mg tablet,disintegrating 4 mg PO Q8H PRN (Reason: nausea and vomiting) Qty: 90 0RF Xarelto 2.5 mg tablet See Rx Instructions .ROUTE .COMPLEX Qty: 60 1RF Dose Instruction: TAKE ONE TABLET BY MOUTH TWICE DAILY Rx Instructions: TAKE ONE TABLET BY MOUTH TWICE DAILY nystatin 100,000 unit/mL suspension 4 ml PO QID 14 Days Qty: 224 1RF Rx Instructions: swish and swallow Do not eat or drink for 10-15 min after dosing acetaminophen 500 mg Tablet 500 mg PO Q6H PRN (Reason: Pain) Qty: 90 0RF Discharge Orders: Discharge ED (Routine); Ordered 09/03/23 Ordered By: Naif Sims Referrals: ARIN Amezquita, ELECTRICIAN'S ASSISTANT [Primary Care Provider] - 1-3 days Discharge Diet: Advance as tolerated Discharge Activity: Resume usual activity Patient Instructions: Hemoptysis Coding Level of Care Code ED Daycare Director for Bridget Estrada
--- NOTE | 2023-09-03 13:43 | PC.PHAR ---
pt no longer takes Dronabinol 5 mg. states she wished we would stop asking about it. Removed from list. 09/03/23
[2023-09-03 13:51] VITALS: BP 157/98; RESP 14; O2SAT 98
== END 2023-09-03 14:08 | disposition home or self-care (01) ==
PROVIDERS: Physician Assistant; Emergency Provider Emergency Medicine; PCP Nurse Practitioner Family
DX: R04.2 Hemoptysis (principal); Z87.891 Personal history of nicotine dependence; Z85.038 Personal history of other malignant neoplasm of large intestine
CPT/HCPCS: 36415; 71045; 80053; 85025; 99284

== ENCOUNTER 2023-09-18 12:11 | Oncology outpatient (recurring) (ONCR) | payer MEDICAID, SELFPAY ==
[2023-09-18 13:11] VITALS: BP 135/88; PULSE 75; RESP 16; TEMP 36.6; O2SAT 95
[2023-09-18 13:30] LABS: Basophils # 0.1 10^3/uL (0.0-0.1); Eosinophils # 0.3 10^3/uL (0.0-0.8); Hematocrit 45.2 % (36-47); Lymphocytes # 2.1 10^3/uL (0.8-4.8); Lymphocytes % 22.6 %; Mean Corpuscular HGB Conc 31.9 g/dL (30-55); Mean Corpuscular Hemoglobin 28.4 pg (27-33); Mean Corpuscular Volume 89.2 fl (85-98); Mean Platelet Volume 9.2 fL (7.4-10.4); Monocytes # 0.9 10^3/uL (0.2-0.9); Monocytes % 9.9 %; Neutrophils # 5.88 10^3/uL (1.8-7.7); Neutrophils % 63.3 %; Nucleated Red Blood Cells % 0 %; Platelet Count 382 10^3/cmm (157-399); Red Blood Count 5.07 10^6/uL (3.85-5.65); Red Cell Distribution Width 15.9 % (12.1-15.1); White Blood Count 9.29 10^3/uL (3.29-11.43)
[2023-09-18 13:45] LABS: D Dimer 1.17 ug/mLFEU (0-0.59)
[2023-09-18 13:47] LABS: Alanine Aminotransferase 14 U/L (0-33); Alkaline Phosphatase 156 U/L (35-105); Anion Gap 13.2 (5-19); Aspartate Amino Transferase 24 U/L (0-32); Blood Urea Nitrogen 10 mg/dL (8-23); Calcium 10.3 mg/dL (8.5-10.5); Carbon Dioxide 30 mmol/L (22-29); Chloride 96 mmol/L (98-107); Creatinine Clr Calc Pharmacy 60.6989; Globulin 3.3 g/dL (1.3-4.6); Glomerular Filtration Rate 72.2 mL/min (90-130); Glucose 114 mg/dL (65-115); Osmolality Calculated 280 mOsm/kg (285-295); Potassium 4.2 mmol/L (3.5-5.1); Sodium 135 mmol/L (136-145); Total Bilirubin 0.3 mg/dL (0.15-1.2); Total Protein 7.3 g/dL (6.6-8.7)
== END 2023-09-23 23:59 | disposition home or self-care (01) ==
PROVIDERS: Nurse Practitioner Family; PCP Nurse Practitioner Family; Visit Provider Internal Medicine Medical Oncology
DX: C18.3 Malignant neoplasm of hepatic flexure (principal); D50.0 Iron deficiency anemia secondary to blood loss (chronic); Z79.899 Other long term (current) drug therapy; Z51.11 Encounter for antineoplastic chemotherapy; Z45.1 Encounter for adjustment and management of infusion pump; C18.9 Malignant neoplasm of colon, unspecified; D64.9 Anemia, unspecified
CPT/HCPCS: 36591; 80053; 85025; 85378; J1642

== ENCOUNTER 2023-09-21 09:47 | Outpatient (CLI) | payer MEDICAID, SELFPAY ==
--- NOTE | 2023-09-21 10:00 | CTR_ITS ---
PROCEDURE INFORMATION: Exam: CTA Chest With Contrast Exam date and time: 09/21/2023 10:33 AM Age: 63 years old Clinical indication: Abnormal findings; Abnormal lab test; Other: Elevated d dimer; Abnormal diagnostic tests; Elevated d-dimer; Prior surgery; Surgery date: 6+ months; Surgery type: Colectomy, c section x 3, gb, hernia; Patient HX: HX of colon, mets to lung, liver cancer; Additional info: Elevated d dimer, known infrarenal abdominal thrombus TECHNIQUE: Imaging protocol: Computed tomographic angiography of the chest with contrast. Exam focused on the arteries. 3D rendering (Not supervised by radiologist): MIP and/or 3D reconstructed images were created by the technologist. Radiation optimization: All CT scans at this facility use at least one of these dose optimization techniques: automated exposure control; mA and/or kV adjustment per patient size (includes targeted exams where dose is matched to clinical indication); or iterative reconstruction. Contrast material: OMNI 350; Contrast volume: 95 ml; Contrast route: INTRAVENOUS (IV); REPORTING DATA: Count of CT and Cardiac NM exams in prior 12 months: This patient has received 4 known CTs and 0 known cardiac nuclear medicine studies in the 12 months prior to the current study. COMPARISON: CT chest w con* [id number] 06/16/2023 5:27 PM RADIATION DOSE METRICS: Total DLP (mGy-cm): 496.82 FINDINGS: Pulmonary arteries: No central or segmental pulmonary emboli. Aorta: No aortic aneurysm or dissection. Lungs: The largest left lower lobe subpleural nodule measuring approximately 3.7 x 1.7 cm on series 5, image 45, not significantly changed. No definite new or enlarging nodules. Right paramediastinal mass measures approximately 2.8 x 1.7 cm on series 4, image 78, unchanged. Emphysematous changes. Pleural spaces: No pneumothorax. No pleural effusion. Heart: No pericardial effusion. Lymph nodes: No enlarged lymph nodes. Bones/joints: No acute findings. Soft tissues: No acute findings. PROCEDURE INFORMATION: Exam: CT Abdomen And Pelvis With Contrast Exam date and time: 09/21/2023 10:33 AM Age: 63 years old Clinical indication: Abnormal findings; Abnormal lab test; Other: Elevated d dimer; Abnormal diagnostic tests; Elevated d-dimer; Prior surgery; Surgery date: 6+ months; Surgery type: Colectomy, c section x 3, gb, hernia; Patient HX: HX of colon, mets to lung, liver cancer; Additional info: Elevated d dimer, known infrarenal abdominal thrombus TECHNIQUE: Imaging protocol: Computed tomography of the abdomen and pelvis with contrast. Radiation optimization: All CT scans at this facility use at least one of these dose optimization techniques: automated exposure control; mA and/or kV adjustment per patient size (includes targeted exams where dose is matched to clinical indication); or iterative reconstruction. Contrast material: OMNI 350; Contrast volume: 95 ml; Contrast route: INTRAVENOUS (IV); REPORTING DATA: Count of CT and Cardiac NM exams in prior 12 months: This patient has received 4 known CTs and 0 known cardiac nuclear medicine studies in the 12 months prior to the current study. COMPARISON: CT abdomen pelvis w con* [id number] 05/31/2023 10:34 AM RADIATION DOSE METRICS: Total DLP (mGy-cm): 496.82 FINDINGS: Liver: Large right hepatic lesion appears slightly increased in size although difficult to accurately compare given overall size and morphology. There are numerous new hypodense lesions throughout the liver. Gallbladder and bile ducts: No calcified stones. No ductal dilation. Pancreas: Peripancreatic masses not increased significantly in size. Spleen: No splenomegaly. Adrenal glands: Increased size 1.6 cm left adrenal lesion. Unchanged small right adrenal lesion. Kidneys and ureters: No hydronephrosis. Numerous tiny hypodensities bilaterally too small to definitively characterize. Stomach and bowel: Postsurgical changes. No obstruction. Appendix: No evidence of appendicitis. Intraperitoneal space: No free air. No significant fluid collection. Vasculature: No abdominal aortic aneurysm. Lymph nodes: No enlarged lymph nodes. Urinary bladder: Decompressed. Reproductive: Unremarkable as visualized. Bones/joints: Degenerative changes without acute findings. Unchanged L1 compression deformity. Soft tissues: No acute findings. CT/CT angio chest w abd pel w con IMPRESSION: No pulmonary embolism. No obvious interval change in multiple bilateral pulmonary nodules. IMPRESSION: Multiple new hypodense hepatic lesion/metastases and increased size of left adrenal lesion. Right adrenal lesion and peripancreatic mass grossly unchanged.
[2023-09-21] MEDS: iohexol 350 mg/mL 500 mL Btl (per mL) IV (10:48)
== END 2023-09-21 09:48 | disposition home or self-care (01) ==
LOC: RAD 09:47
PROVIDERS: PCP Nurse Practitioner Family; Visit Provider Nurse Practitioner Family
DX: R79.1 Abnormal coagulation profile (principal); Z86.718 Personal history of other venous thrombosis and embolism; C78.7 Secondary malignant neoplasm of liver and intrahepatic bile duct; E27.9 Disorder of adrenal gland, unspecified; K86.9 Disease of pancreas, unspecified; Z85.038 Personal history of other malignant neoplasm of large intestine; Z90.49 Acquired absence of other specified parts of digestive tract
CPT/HCPCS: 71275; 74177; Q9967

== ENCOUNTER → 2023-09-25 12:01 | Outpatient (BNVA) | payer MEDICAID, SELFPAY | PROVIDERS: PCP Nurse Practitioner Family; Visit Provider Nurse Practitioner Family | DX: N39.0 Urinary tract infection, site not specified (principal) | CPT/HCPCS: 81003; 87086 ==

== ENCOUNTER 2023-10-16 11:40 | Oncology outpatient (recurring) (ONCR) | payer MEDICAID, SELFPAY ==
[2023-10-16 12:11] VITALS: BP 138/89; PULSE 102; RESP 18; TEMP 36.6; O2SAT 97
[2023-10-16 12:37] LABS: Basophils # 0.1 10^3/uL (0.0-0.1); Basophils % 0.7 %; Eosinophils # 0.3 10^3/uL (0.0-0.8); Eosinophils % 2.8 %; Lymphocytes # 1.8 10^3/uL (0.8-4.8); Lymphocytes % 17.5 %; Mean Corpuscular HGB Conc 32.6 g/dL (30-55); Mean Corpuscular Volume 89.2 fl (85-98); Mean Platelet Volume 9.1 fL (7.4-10.4); Monocytes # 0.8 10^3/uL (0.2-0.9); Neutrophils # 7.15 10^3/uL (1.8-7.7); Neutrophils % 70.7 %; Nucleated Red Blood Cells % 0 %; Platelet Count 519 10^3/cmm (157-399); Red Blood Count 4.82 10^6/uL (3.85-5.65); Red Cell Distribution Width 14.3 % (12.1-15.1); White Blood Count 10.11 10^3/uL (3.29-11.43)
[2023-10-16 12:53] LABS: Add Urine Microscopic? YES; Bilirubin Urine 1+ (Negative); Blood Urine 2+ (Negative); Glucose Urine UA Norm (Normal); Ketones Urine 1+ (Negative); Leukocyte Esterase Urine 2+ (Negative); Nitrate Urine Negative (Negative); Protein Urine 1+ (Negative); Specific Gravity, Urine 1.025 (1.005-1.030); Urine Appearance Hazy (CLEAR); Urine Color Yellow (Yellow); Urobilinogen Urine Norm (Negative); pH Urine 5 (5-7)
[2023-10-16 12:58] LABS: Alanine Aminotransferase 12 U/L (0-33); Albumin Level 3.8 g/dL (3.5-5.2); Alkaline Phosphatase 268 U/L (35-105); Aspartate Amino Transferase 30 U/L (0-32); Blood Urea Nitrogen 10 mg/dL (8-23); Calcium 10.5 mg/dL (8.5-10.5); Carbon Dioxide 27 mmol/L (22-29); Chloride 98 mmol/L (98-107); Globulin 3.5 g/dL (1.3-4.6); Glomerular Filtration Rate 100.6 mL/min (90-130); Glucose 91 mg/dL (65-115); Osmolality Calculated 281 mOsm/kg (285-295); Sodium 136 mmol/L (136-145); Total Bilirubin 0.3 mg/dL (0.15-1.2); Total Protein 7.3 g/dL (6.6-8.7)
[2023-10-16 13:02] LABS: Bacteria Urine TRACE /hpf; Calcium Oxalate Crystals Urine 25-40 /hpf; Mucus Urine 3+ /hpf; RBC Urine 0-4 /hpf (0-2); Squamous Epithelial Cell Urine 0-4 /hpf (0-5)
[2023-10-16 13:03] LABS: Add Urine Culture? Yes
== END 2023-10-24 23:59 | disposition home or self-care (01) ==
LOC: ONCMED 11:42
PROVIDERS: PCP Nurse Practitioner Family; Visit Provider Internal Medicine Medical Oncology
DX: C18.3 Malignant neoplasm of hepatic flexure (principal); D50.0 Iron deficiency anemia secondary to blood loss (chronic); Z79.899 Other long term (current) drug therapy; C18.9 Malignant neoplasm of colon, unspecified; D64.9 Anemia, unspecified
CPT/HCPCS: 36591; 80053; 81001; 85025; 87086; J1642